=== PATIENT | male | born 1945 | race Caucasian/White ===

== ENCOUNTER 2016-04-12 13:56 | Emergency (ER) | payer OTHER ==
--- NOTE | 2016-04-12 13:58 | PDOC ---
History of Present Illness - General Chief Complaint: Pain, Acute Stated Complaint: RIGHT ARM, UPPER BACK PAIN Time Seen by Provider: 04/12/16 13:58 - History of Present Illness Initial Comments: 04/12/16 14:58 70 year bangladeshi speaking male presented to the ED with complaints of severe pain over his neck, right shoulder since 2 weeks. A/c to the patient, he was in [facility], while he was trying to pull out a fence, started developing pain right away. Pain started suddenly, progressively getting worse, squeezing type, extending from neck to right shoulder till the tip of the fingers, also complaints of tingling and numbness of all fingers. Took one dose of advil and 2tabs of tylenol but didn't feel better. Pain has restricted his daily activities. It aggravated during movement but now persists even at rest. Denies chest pain, sob, cough, palpitation, abdominal pain, nausea or vomiting. Bowel/Bladder habit normal. Past Medical Hx: DM Allergies:NKDA Surgical Hx: Right inguinal hernia repair Social Hx: Never smoked, No alcohol intake, no illicit drug use. Hospitalization: Never been hospitalized Home Meds: Home Medications Medication Instructions Recorded Ibuprofen [Motrin -] 400 mg PO TID #21 tablet 04/12/16 Metformin HCl [Glucophage -] 500 mg PO BID 04/12/16 Past History - Past Medical History Allergies/Adverse Reactions: Allergies Allergy/AdvReac Type Severity Reaction Status Date / Time No Known Allergies Allergy Verified 04/12/16 13:57 Home Medications: Ambulatory Orders Ibuprofen [Motrin -] 400 mg PO TID #21 tablet 04/12/16 Metformin HCl [Glucophage -] 500 mg PO BID 04/12/16 Diabetes: Yes - Surgical History Abdominal Surgery: Yes (HERNIA) - Psycho/Social/Smoking Cessation Hx Anxiety: No Suicidal Ideation: No Smoking History: Unknown if ever smoked Have you smoked in the past 12 months: No Hx Alcohol Use: No Substance Use Type: None Review of Systems - Review of Systems Able to Perform ROS?: Yes Comments:: 04/12/16 15:20 CONSTITUTIONAL: Absent: fever, chills, diaphoresis, generalized weakness, malaise, loss of appetite HEENT: Absent: rhinorrhea, nasal congestion, throat pain, throat swelling, difficulty swallowing, mouth swelling, ear pain, eye pain, visual Changes CARDIOVASCULAR: Absent: chest pain, syncope, palpitations, irregular heart rate, lightheadedness , peripheral edema RESPIRATORY: Absent: cough, shortness of breath, dyspnea with exertion, orthopnea, wheezing, stridor, hemoptysis GASTROINTESTINAL: Absent: abdominal pain, abdominal distension, nausea, vomiting, diarrhea, constipation, melena, hematochezia GENITOURINARY: Absent: dysuria, frequency, urgency, hesitancy, hematuria, flank pain, genital pain MUSCULOSKELETAL: Present: Pain over the neck, shoulder, fingers Absent: myalgia, arthralgia, joint swelling SKIN: Absent: rash, itching, pallor HEMATOLOGIC/IMMUNOLOGIC: Absent: easy bleeding, easy bruising, lymphadenopathy, frequent infections ENDOCRINE: Absent: unexplained weight gain, unexplained weight loss, heat intolerance, cold intolerance NEUROLOGIC: Absent: headache, focal weakness or paresthesias, dizziness, unsteady gait, seizure, mental status changes, bladder or bowel incontinence PSYCHIATRIC: Absent: anxiety, depression, suicidal or homicidal ideation, hallucinations. Is the patient limited Vietnamese proficient: No *Physical Exam - Physical Exam Comments: 04/12/16 15:28 PE: GENERAL: Awake, alert, and fully oriented, in no acute distress HEAD: No signs of trauma EYES: PERRLA, EOMI, sclera anicteric, conjunctiva clear ENT: Auricles normal inspection, hearing grossly normal, nares patent, oropharynx clear without exudates. Moist mucosa NECK: Normal ROM, supple, no lymphadenopathy, JVD, or masses LUNGS: Breath sounds equal, clear to auscultation bilaterally. No wheezes, and no crackles.. HEART: Regular rate and rhythm, normal S1 and S2, no murmurs. ABDOMEN: Soft, nontender, normoactive bowel sounds. No guarding, no rebound. No masses EXTREMITIES: No swelling, tender to palpation over the neck, right shoulder, tense +, B/L sensation intact. Range of motion restricted over the right shoulder, . No clubbing or cyanosis. No cords, erythema, or tenderness NEUROLOGICAL: Cranial nerves II through XII grossly intact. Normal speech, normal gait SKIN: Warm, Dry, normal turgor, no rashes or lesions noted. 04/12/16 16:10 Medical Decision Making - Medical Decision Making 04/12/16 15:38 Patient seen and examined at bed side. Patient look comfortable. Vitals unremarkable. Physical exam of the upper extremity showed No swelling, tender to palpation over the neck, right shoulder, tense +, B/L sensation intact. Range of motion restricted over the right shoulder. On the basis of history and physical exam, symptoms are more consistent with musculoskeletal strain. However, there is possibility patient might have Frozen shoulder given the history of Diabetes. Patient received 800mg of PO Motrin, symptoms subsided. patient looks comfortable, hemodynamically stable and can be discharged. Patient has been advised to visit his primary doctor as soon as possible for further detailed evaluation. Illness, Investigation and plan of care explained to the patient. He verbalized understanding. Case seen and discussed with Dr. Perez. *DC/Admit/Observation/Transfer Diagnosis at time of Disposition: Trapezius muscle strain - Discharge Dispostion Disposition: HOME Condition at time of disposition: Stable - Prescriptions Prescriptions: Ibuprofen [Motrin -] 400 mg PO TID #21 tablet - Referrals Referrals: Parker Wing MD [Staff Physician] - 2 Days Navjot White MD [Primary Care Provider] - - Patient Instructions Printed Discharge Instructions: DI for Muscle Strain Additional Instructions: Return to the emergency department immediately with ANY new, persistent or worsening symptoms. You MUST call and follow up with your doctor tomorrow. Please make sure your doctor reviews the results of your emergency department evaluation.
[2016-04-12 14:04] VITALS: BP 147/85; PULSE 81; TEMP 97.9; BMI 33.9
--- NOTE | 2016-04-12 14:06 | PDOC ---
History of Present Illness - General Chief Complaint: Pain, Acute Stated Complaint: RIGHT ARM, UPPER BACK PAIN Time Seen by Provider: 04/12/16 13:58 Past History - Past Medical History Allergies/Adverse Reactions: Allergies Allergy/AdvReac Type Severity Reaction Status Date / Time No Known Allergies Allergy Verified 04/12/16 13:57 Home Medications: Ambulatory Orders Metformin HCl [Glucophage -] 500 mg PO BID 04/12/16 Diabetes: Yes - Surgical History Abdominal Surgery: Yes (HERNIA) - Psycho/Social/Smoking Cessation Hx Anxiety: No Suicidal Ideation: No Smoking History: Unknown if ever smoked Have you smoked in the past 12 months: No Hx Alcohol Use: No Drug/Substance Use Hx: No Substance Use Type: None *Physical Exam - Vital Signs Last Vital Signs Temp Pulse Resp BP Pulse Ox 97.9 F 81 18 147/85 100 04/12/16 13:57 04/12/16 13:57 04/12/16 13:57 04/12/16 13:57 04/12/16 13:57 Discharge Disposition - Discharge Dispostion Condition at time of disposition: Stable
--- NOTE | 2016-04-12 14:06 | PDOC ---
Attending Attestation - Resident Resident Name: Sweetie Alexander - ED Attending Attestation I have performed the following: I have examined & evaluated the patient, The case was reviewed & discussed with the resident, I agree w/resident's findings & plan, Exceptions are as noted - HPI HPI: 04/12/16 14:37 The patient is a 70-year-old male who presents to the emergency department complaining of right sided neck and shoulder pain. He has had the pain for approximately one week. It occurred after he was performing increased physical activity. The pain is a mild dull ache, and is worsened by palpation or movement. He denies upper extremity weakness or paresthesias. He denies focal weakness or paresthesias. - Physicial Exam PE: 04/12/16 14:38 There is spasm and tenderness to palpation in the distribution of the trapezius muscle. There is 2 out of 2 carotid pulses bilaterally, without any carotid or vertebral bruits. C-spine is nontender Upper and lower extremity sensation and motor function is symmetric Radial and brachial pulses in the right and left upper extremities are strong and symmetric - Medical Decision Making 04/12/16 14:00 The patient is well-appearing and in no acute distress Will obtain PA and lateral chest x-ray 04/12/16 14:40 Chest x-ray emergency Department interpretation: There are no arthralgia seen in the right upper lobe There are no bony abnormalities seen Clinical impression: Musculoskeletal pain Trapezius muscle strain I discussed the physical exam findings, ancillary test results and final diagnoses with the patient. I answered all of the patient's questions. The patient was satisfied with the care received and felt comfortable with the discharge plan and treatment plan. The patient will call their primary care physician within 24 hours to arrange follow-up and will return to the Emergency Department with any new, persistent or worsening symptoms. A portion of this note was documented by scribe services under my direction. I have reviewed the details of the note, within reason, and agree with the documentation with the following case summary and management plan written by me. Discharge Disposition - Diagnosis Trapezius muscle strain - Discharge Dispostion Disposition: HOME Condition at time of disposition: Stable - Prescriptions Prescriptions: Ibuprofen [Motrin -] 400 mg PO TID #21 tablet - Referrals Referrals: Navjot White MD [Primary Care Provider] - Parker Wing MD [Staff Physician] - 2 Days - Patient Instructions Printed Discharge Instructions: DI for Muscle Strain Additional Instructions: Return to the emergency department immediately with ANY new, persistent or worsening symptoms. You MUST call and follow up with your doctor tomorrow. Please make sure your doctor reviews the results of your emergency department evaluation.
[2016-04-12] MEDS ORDERED: IBUPROFEN 400 MG TABLET (FP) PO ONE ×2 (14:48→15:03)
== END 2016-04-12 15:26 | disposition home or self-care (01) ==
LOC: EDBD → FER 13:56
DX: S46.811A Strain of other muscles, fascia and tendons at shoulder and upper arm level, right arm, initial encounter (principal); X50.0XXA Overexertion from strenuous movement or load, initial encounter; Y93.89 Activity, other specified; Y92.89 Other specified places as the place of occurrence of the external cause
CPT/HCPCS: 71020-TC; 99282-25

== ENCOUNTER 2016-05-22 21:53 | Emergency (ER) | payer OTHER ==
[2016-05-22 21:57] VITALS: BP 141/67; PULSE 74; TEMP 98.2; BMI 34.7
[2016-05-22] MEDS ORDERED: SODIUM CHLORIDE 1,000 ML IV STA ×2 (22:07→23:08)
--- NOTE | 2016-05-22 22:08 | PDOC ---
History of Present Illness - General History Source: Patient, Old Records Exam Limitations: No Limitations - History of Present Illness Initial Comments: 05/22/16 22:08 The patient is a 70 year old male, accompanied by , with a past medical history of diabetes and HTN who presents to the emergency room today for further evaluation of irregular blood sugar levels. The patient states that yesterday while he was at his doctors office his blood sugar was 521. He notes that today in the morning his blood sugar was 490 and in the afternoon it was 377. The patient reports associated generalized weakness. The patient states that he has been drinking a lot of fluids and has been eating normally. He denies fever and any other complaints at this time <Ramsey Mcadams - Last Filed: 05/22/16 22:09> <Peter Davey - Last Filed: 05/22/16 23:29> - General Chief Complaint: Blood Sugar Problem Stated Complaint: HIGH GLUCOSE Past History <Ramsey Mcadams - Last Filed: 05/22/16 22:09> - Past Medical History Diabetes: Yes HTN: Yes Hypercholesterolemia: Yes - Surgical History Abdominal Surgery: Yes (HERNIA) - Psycho/Social/Smoking Cessation Hx Anxiety: No Suicidal Ideation: No Smoking History: Never smoked Have you smoked in the past 12 months: No Hx Alcohol Use: No Drug/Substance Use Hx: No Substance Use Type: None <Peter Davey - Last Filed: 05/22/16 23:29> - Past Medical History Allergies/Adverse Reactions: Allergies Allergy/AdvReac Type Severity Reaction Status Date / Time No Known Allergies Allergy Verified 04/12/16 13:57 Home Medications: Ambulatory Orders Ibuprofen [Motrin -] 400 mg PO TID #21 tablet 04/12/16 Metformin HCl [Glucophage -] 500 mg PO BID 04/12/16 Review of Systems - Review of Systems Able to Perform ROS?: Yes Constitutional: Yes: Symptoms Reported, See HPI, Weakness Hematologic/Lymphatic: Yes: Symptoms Reported, See HPI, Other (Blood sugar abnormalities) <Ramsey Mcadams - Last Filed: 05/22/16 22:09> *Physical Exam - Vital Signs Last Vital Signs Temp Pulse Resp BP Pulse Ox 98.2 F 74 18 141/67 92 L 05/22/16 21:55 05/22/16 21:55 05/22/16 21:55 05/22/16 21:55 05/22/16 21:55 <Ramsey Mcadams - Last Filed: 05/22/16 22:09> - Vital Signs Last Vital Signs Temp Pulse Resp BP Pulse Ox 98.2 F 74 18 141/67 92 L 05/22/16 21:55 05/22/16 21:55 05/22/16 21:55 05/22/16 21:55 05/22/16 21:55 - Physical Exam General Appearance: Yes: Nourished, Appropriately Dressed. No: Apparent Distress HEENT: positive: Normal ENT Inspection Neck: positive: Supple. negative: Tender Respiratory/Chest: positive: Lungs Clear, Normal Breath Sounds. negative: Respiratory Distress Cardiovascular: positive: Regular Rhythm, Regular Rate Gastrointestinal/Abdominal: positive: Soft. negative: Tender Musculoskeletal: positive: Normal Inspection. negative: CVA Tenderness Extremity: positive: Normal Capillary Refill. negative: Pedal Edema Integumentary: positive: Normal Color Neurologic: positive: Fully Oriented, Alert, Normal Mood/Affect, Normal Response , Motor Strength 5/5 <Peter Davey - Last Filed: 05/22/16 23:29> ED Treatment Course - LABORATORY CBC & Chemistry Diagram: 05/22/16 22:05 05/22/16 22:05 <Peter Davey - Last Filed: 05/22/16 23:29> *DC/Admit/Observation/Transfer - Attestations Scribe Attestion: 05/22/16 22:09 Documentation prepared by Ramsey Mcadams, acting as medical assisting instructor for Peter Davey MD. <Ramsey Mcadams - Last Filed: 05/22/16 22:09> <Peter Davey - Last Filed: 05/22/16 23:29> Diagnosis at time of Disposition: Hyperglycemia - Discharge Dispostion Disposition: HOME Condition at time of disposition: Improved - Referrals Referrals: Navjot White MD [Primary Care Provider] - Call tomorrow - Patient Instructions Additional Instructions: CONTINUE MEDICATIONS PRESCRIBED CHECK YOUR SUGAR BEFORE BED RETURN TO ER IF WORSENING OR NEW SYMPTOMS
[2016-05-22 22:26] LABS: BASOPHIL 0.8 % (0-2.0); EOSINOPHIL 1.5 % (0-4.5); MCH 30.6 pg (25.7-33.7); MCHC 34.2 g/dl (32.0-35.9); MEAN CELL VOLUME 89.4 fl (80-96); MEAN PLT VOLUME 8.9 fl (7.5-11.1); PLATELET COUNT 229 K/MM3 (134-434); RDW 12.1 % (11.9-15.9); WHITE BLOOD COUNT 9.2 K/mm3 (4.0-10.0)
[2016-05-22 22:34] LABS: CALCIUM 9.5 mg/dl (8.4-10.2); CREATININE 0.9 mg/dl (0.6-1.3)
[2016-05-22] MEDS ORDERED: INSULIN REGULAR HUMAN 100 UNITS/ML *VIAL IVPUSH ONE (23:08)
[2016-05-22] MEDS ORDERED: INSULIN REGULAR HUMAN 100 UNITS/ML *VIAL ONE (23:08)
[2016-05-22] MEDS ORDERED: HEMOQUE TEST 1 EACH EACH ONE (23:28)
== END 2016-05-22 23:41 | disposition home or self-care (01) ==
LOC: FER 21:53
PROC: 3E033VG Introduction of Insulin into Peripheral Vein, Percutaneous Approach (ICD-10-PCS; principal; 2016-05-22)
PROC: 3E0337Z Introduction of Electrolytic and Water Balance Substance into Peripheral Vein, Percutaneous Approach (ICD-10-PCS; 2016-05-22)
DX: E11.65 Type 2 diabetes mellitus with hyperglycemia (principal); Z79.84 Long term (current) use of oral hypoglycemic drugs; I10 Essential (primary) hypertension; E78.00 Pure hypercholesterolemia, unspecified
CPT/HCPCS: 36415; 80048; 82009; 85025; 99283-25

== ENCOUNTER 2016-07-11 17:24 | Emergency (ER) | payer OTHER ==
[2016-07-11 17:49] VITALS: BP 120/76; PULSE 67; TEMP 98.5; BMI 28.2
--- NOTE | 2016-07-11 17:59 | PDOC ---
History of Present Illness - General History Source: Patient Exam Limitations: No Limitations - History of Present Illness Initial Comments: 07/11/16 18:27 The patient is a 70 year old male with a significant past medical history of diabetes and hypertension who presents to the ED with complaints of right thigh pain s/p fall yesterday. Patient reports he fell yesterday onto his right side. Denies loss of consciousness. Patient reports progressively worsening non radiating upper right thigh pain. He describes the pain as sharp. He states it is difficult for him to ambulate secondary to thigh pain. Patient also reports a laceration to his right shoulder due to the fall. Denies head pain or neck pain. Denies hip pain. Denies fever or chills. Denies chest pain or shortness of breath. Denies abdominal pain, nausea, vomiting, or diarrhea. Denies any other symptoms. PMH: Diabetes, HTN <Shey Akers - Last Filed: 07/11/16 18:28> - History of Present Illness Initial Comments: 07/23/16 07:38 The patient's physical exam is unremarkable. There is mild tenderness over the anterior and lateral mid-thigh but no swelling or mass suggestive of a hematoma. There is full knee extension. There is no limited motion or pain with rotation of the hips. Pulses are full. The distal sensory or motor deficits. Examination of the shoulder reveals no visible or palpable sign of trauma, full range of motion, no sensory or motor deficits to the upper extremity Avila wrap and crutches were administered. Rest and Motrin as needed. Follow-up with orthopedist. Patient adequately ambulatory and in no significant pain or other distress upon discharge with his to follow-up as directed <Arnel Hawthorne - Last Filed: 07/23/16 07:40> - General Chief Complaint: Injury Stated Complaint: RIGHT THIGH & SHOULDER PAIN Time Seen by Provider: 07/11/16 17:28 Past History <Shey Akers - Last Filed: 07/11/16 18:28> - Past Medical History Diabetes: Yes HTN: Yes Hypercholesterolemia: Yes - Surgical History Abdominal Surgery: Yes (HERNIA) - Psycho/Social/Smoking Cessation Hx Anxiety: No Suicidal Ideation: No Smoking History: Never smoked Have you smoked in the past 12 months: No Hx Alcohol Use: No Drug/Substance Use Hx: No Substance Use Type: None <Arnel Hawthorne - Last Filed: 07/23/16 07:40> - Past Medical History Allergies/Adverse Reactions: Allergies Allergy/AdvReac Type Severity Reaction Status Date / Time No Known Allergies Allergy Verified 07/11/16 17:28 Home Medications: Ambulatory Orders Metformin HCl [Glucophage -] 1,000 mg PO BID 04/12/16 Amlodipine Besylate [Norvasc -] 5 mg PO DAILY 05/22/16 Glipizide [Glucotrol Xl] 2.5 mg PO BID 05/22/16 Lisinopril/Hydrochlorothiazide [Lisinopril-Hctz 20-12.5 mg Tab] 1 each PO DAILY 05/22/16 Cyclobenzaprine HCl [Flexeril 10 mg] 10 mg PO TID #15 tablet 07/11/16 Review of Systems - Review of Systems Able to Perform ROS?: Yes Comments:: 07/11/16 18:27 CONSTITUTIONAL: No reported: Fever, Chills, Diaphoresis, Generalized Weakness, Malaise, Loss of Appetite HEENT: No reported: Rhinorrhea, Nasal Congestion, Throat Pain, Throat Swelling, Difficulty Swallowing, Mouth Swelling, Ear Pain, Eye Pain, Visual Changes CARDIOVASCULAR: No reported: Chest Pain, Syncope, Palpitations, Irregular Heart Rate, Lightheadedness, Peripheral Edema RESPIRATORY: No reported: Cough, Shortness of Breath, SOB with Exertion, Orthopnea, Wheezing , Stridor, Hemoptysis GASTROINTESTINAL: No reported: Abdominal pain, Abdominal Distension, Nausea, Vomiting, Diarrhea, Constipation, Melena, Hematochezia GENITOURINARY: No reported: Dysuria, Frequency, Urgency, Hesitancy, Flank Pain, Genital Pain MUSCULOSKELETAL: + right thigh pain No reported:, Joint Swelling, Back pain, Neck Pain SKIN: + right shoulder laceration No reported: Rash, Itching, Pallor HEMEATOLOGIC/IMMUNOLOGIC: No reported: Easy Bleeding, Easy Bruising, Lymphadenopathy, Frequent infections ENDOCRINE: No reported: Unexplained Weight Gain, Unexplained Weight Loss, Heat Intolerance , Cold Intolerance NEUROLOGIC: No reported: Headache, Focal Weakness, Paresthesias, Vertigo, Lightheadedness, Unsteady Gait, Seizure, Mental Status Changes, Incontinence PSYCHIATRIC: No reported: Anxiety, Depression All Other Systems: Reviewed and Negative <Akers,Andrys - Last Filed: 07/11/16 18:28> *Physical Exam - Vital Signs Last Vital Signs Temp Pulse Resp BP Pulse Ox 98.5 F 67 16 120/76 95 07/11/16 17:26 07/11/16 17:26 07/11/16 17:26 07/11/16 17:26 07/11/16 17:26 - Physical Exam Comments: 07/11/16 18:28 GENERAL: Well developed, well nourished. Awake and alert. No acute distress. HEENT: Normocephalic, atraumatic. PERRLA, EOMI. No conjunctival pallor. Sclera are non- icteric. Moist mucous membranes. Oropharynx is clear. NECK: Supple. Full ROM. No JVD. Carotid pulses 2+ and symmetric, without bruits. No thyromegaly. No lymphadenopathy. CARDIOVASCULAR: Regular rate and rhythm. No murmurs, rubs, or gallops. Distal pulses are 2+ and symmetric. PULMONARY: No evidence of respiratory distress. Lungs clear to auscultation bilaterally. No wheezing, rales or rhonchi. ABDOMINAL: Soft. Non-tender. Non-distended. No rebound or guarding. No organomegaly. Normoactive bowel sounds. MUSCULOSKELETAL Normal range of motion at all joints. No bony deformities or tenderness. No CVA tenderness. EXTREMITIES: + tenderness of the mid right anterolateral thigh, with mild swelling. Appears to be deep in the belly of the muscle. no tenderness or limited range of motion in the knee or hip, no skin injury including abrasion or laceration that is evident. Pain is severe enough limit weight bearing and ambulation, although patient is able to ambulate adequately.. SKIN: Warm and dry. Normal capillary refill. No rashes. No jaundice. NEUROLOGICAL: Alert, awake, appropriate. Cranial nerves 2-12 intact. No deficits to light touch and temperature in face, upper extremities and lower extremities. No motor deficits in the in face, upper extremities and lower extremities. Normoreflexic in the upper and lower extremities. Normal speech. Toes are down- going bilaterally. Gait is normal without ataxia. PSYCHIATRIC: Cooperative. Good eye contact. Appropriate mood and affect. <Shey Akers - Last Filed: 07/11/16 18:28> - Vital Signs Last Vital Signs Temp Pulse Resp BP Pulse Ox 98.5 F 67 16 120/76 95 07/11/16 17:26 07/11/16 17:26 07/11/16 17:26 07/11/16 17:26 07/11/16 17:26 <Arnel Hawthorne - Last Filed: 07/23/16 07:40> ED Treatment Course - RADIOLOGY Radiograph Interpretation: 07/11/16 18:29 RAD/FEMUR-RIGHT Impression: No fracture or acute pathology. Reported by: Johnnie Justin <Shey Akers - Last Filed: 07/11/16 18:28> *DC/Admit/Observation/Transfer - Attestations Scribe Attestion: 07/11/16 18:28 Documentation prepared by Shey Akers, acting as medical office assistant instructor for Arnel Whitlock MD <Shey Akers - Last Filed: 07/11/16 18:28> - Discharge Dispostion Admit: No <Arnel Hawthorne - Last Filed: 07/23/16 07:40> Diagnosis at time of Disposition: Strain of quadriceps muscle Qualifiers: Encounter type: initial encounter Laterality: right Qualified Code(s): S76.111A - Strain of right quadriceps muscle, fascia and tendon, initial encounter - Discharge Dispostion Disposition: HOME Condition at time of disposition: Good - Prescriptions Prescriptions: Cyclobenzaprine HCl [Flexeril 10 mg] 10 mg PO TID #15 tablet - Referrals Referrals: Navjot White MD [Primary Care Provider] - 3 days - Patient Instructions Printed Discharge Instructions: Muscle Strain, How to Apply an Avila Wrap, How to Use Crutches Additional Instructions: Rest, ice, elevate, Avila wrap, and crutches. Recheck customer care specialist in 3 days for further evaluation and treatment. Muscle relaxants as directed.
[2016-07-11] MEDS ORDERED: CYCLOBENZAPRINE HCL 10 MG TABLET (FP) PO ONE (18:22)
[2016-07-11] MEDS ORDERED: CYCLOBENZAPRINE HCL 10 MG TABLET (FP) ONE (18:42)
== END 2016-07-11 18:51 | disposition home or self-care (01) ==
LOC: FER 17:24
DX: S76.111A Strain of right quadriceps muscle, fascia and tendon, initial encounter (principal); W18.30XA Fall on same level, unspecified, initial encounter; Y93.9 Activity, unspecified; Y92.9 Unspecified place or not applicable; E11.9 Type 2 diabetes mellitus without complications; I10 Essential (primary) hypertension; Z79.84 Long term (current) use of oral hypoglycemic drugs
CPT/HCPCS: 73552-TC-RT; 99281-25

== ENCOUNTER 2016-11-25 16:05 | Emergency (ER) | payer OTHER ==
[2016-11-25 16:15] VITALS: BP 129/70; PULSE 61; TEMP 98.3; BMI 33.4
--- NOTE | 2016-11-25 16:59 | PDOC ---
History of Present Illness - General History Source: Patient Exam Limitations: No Limitations - History of Present Illness Initial Comments: 11/25/16 17:45 The patient is a 71 year old with history of diabetes who presents to the ED complaining of several weeks of progressively worsening right foot pain. The patient states his pain is at the base of the heel and worse with walking long distances. He admits to wearing flat sandals regularly. No injury. No swelling. No numbness or tingling. <Brooklynn Ocasio - Last Filed: 11/25/16 17:44> <Arnel Hawthorne - Last Filed: 11/25/16 18:30> - General Chief Complaint: Pain Stated Complaint: RT FOOT PAIN Time Seen by Provider: 11/25/16 16:11 Past History <Brooklynn Ocasio - Last Filed: 11/25/16 17:44> - Past Medical History Diabetes: Yes HTN: Yes Hypercholesterolemia: Yes - Surgical History Abdominal Surgery: Yes (HERNIA) - Suicide/Smoking/Psychosocial Hx Smoking History: Never smoked Have you smoked in the past 12 months: No Information on smoking cessation initiated: No Hx Alcohol Use: No Drug/Substance Use Hx: No Substance Use Type: None <Arnel Hawthorne - Last Filed: 11/25/16 18:30> - Past Medical History Allergies/Adverse Reactions: Allergies Allergy/AdvReac Type Severity Reaction Status Date / Time No Known Allergies Allergy Verified 11/25/16 16:08 Home Medications: Ambulatory Orders Metformin HCl [Glucophage -] 1,000 mg PO BID 04/12/16 Amlodipine Besylate [Norvasc -] 5 mg PO DAILY 05/22/16 Glipizide [Glucotrol Xl] 2.5 mg PO BID 05/22/16 Lisinopril/Hydrochlorothiazide [Lisinopril-Hctz 20-12.5 mg Tab] 1 each PO DAILY 05/22/16 Capsaicin 0.025% [Capsaicin [Nf] -] 1 applic TP BID #1 tube 11/25/16 Review of Systems - Review of Systems Able to Perform ROS?: Yes Comments:: 11/25/16 17:47 GENERAL/CONSTITUTIONAL: No fever or chills. No weakness. HEAD, EYES, EARS, NOSE AND THROAT: No change in vision. No ear pain or discharge. No sore throat. CARDIOVASCULAR: No chest pain or shortness of breath. RESPIRATORY: No cough, wheezing, or hemoptysis. GASTROINTESTINAL: No nausea, vomiting, diarrhea or constipation. GENITOURINARY: No dysuria, frequency, or change in urination. MUSCULOSKELETAL: +R foot pain. No neck or back pain. SKIN: No rash NEUROLOGIC: No headache, vertigo, loss of consciousness, or change in strength/ sensation. ENDOCRINE: No increased thirst. No abnormal weight change. HEMATOLOGIC/LYMPHATIC: No anemia, easy bleeding, or history of blood clots. ALLERGIC/IMMUNOLOGIC: No hives or skin allergy. <Brooklynn Ocasio - Last Filed: 11/25/16 17:44> *Physical Exam - Vital Signs Last Vital Signs Temp Pulse Resp BP Pulse Ox 98.3 F 61 18 129/70 100 11/25/16 16:05 11/25/16 16:05 11/25/16 16:05 11/25/16 16:05 11/25/16 16:05 - Physical Exam Comments: 11/25/16 17:45 GENERAL: Awake, alert, and fully oriented, in no acute distress HEAD: No signs of trauma EYES: PERRLA, EOMI, sclera anicteric, conjunctiva clear ENT: Auricles normal inspection, hearing grossly normal, nares patent, oropharynx clear without exudates. Moist mucosa NECK: Normal ROM, supple, no lymphadenopathy, JVD, or masses LUNGS: Breath sounds equal, clear to auscultation bilaterally. No wheezes, and no crackles HEART: Regular rate and rhythm, normal S1 and S2, no murmurs, rubs or gallops ABDOMEN: Soft, nontender, normoactive bowel sounds. No guarding, no rebound. No masses EXTREMITIES: RLE: Point tenderness over the plantar fascia. High arch. Tenderness over the achilles. No erythema or induration. Pulses are adequate without sensory deficits. All other extremities: Normal range of motion, no edema. No clubbing or cyanosis. No cords, erythema, or tenderness NEUROLOGICAL: Cranial nerves II through XII grossly intact. Normal speech, normal gait SKIN: Warm, Dry, normal turgor, no rashes or lesions noted <Brooklynn Ocasio - Last Filed: 11/25/16 17:44> - Vital Signs Last Vital Signs Temp Pulse Resp BP Pulse Ox 98.3 F 61 18 129/70 100 11/25/16 16:05 11/25/16 16:05 11/25/16 16:05 11/25/16 16:05 11/25/16 16:05 <Arnel Hawthorne - Last Filed: 11/25/16 18:30> Medical Decision Making - Medical Decision Making 11/25/16 18:29 Patient with point tenderness over the plantar fascia, no external signs of inflammation or infection. Proper footwear discussed and follow-up with aircraft engine specialist. <Arnel Hawthorne - Last Filed: 11/25/16 18:30> *DC/Admit/Observation/Transfer - Attestations Scribe Attestion: 11/25/16 17:48 Documentation prepared by Brooklynn Ocasio, acting as medical staff coordinator for Arnel Hawthorne MD. <Brooklynn Ocasio - Last Filed: 11/25/16 17:44> - Discharge Dispostion Admit: No <Arnel Hawthorne - Last Filed: 11/25/16 18:30> Diagnosis at time of Disposition: Plantar fasciitis - Discharge Dispostion Disposition: HOME Condition at time of disposition: Stable - Prescriptions Prescriptions: Capsaicin 0.025% [Capsaicin [Nf] -] 1 applic TP BID #1 tube - Referrals Referrals: Omero Rizzo MD [Staff Physician] - 1 week - Patient Instructions Printed Discharge Instructions: DI for Plantar Fasciitis Additional Instructions: Wear proper footwear, a closed shoe, with an orthotic insert. Make sure there is adequate arch support and heel cushioning, with elevation of the heel at least 1/8-1/4 in Print Language: [place]
== END 2016-11-25 17:30 | disposition home or self-care (01) ==
LOC: FER 16:05
DX: M72.2 Plantar fascial fibromatosis (principal); E11.9 Type 2 diabetes mellitus without complications; I10 Essential (primary) hypertension; E78.00 Pure hypercholesterolemia, unspecified
CPT/HCPCS: 99282-25

== ENCOUNTER 2017-10-09 23:28 | Inpatient (IN) | payer OTHER ==
--- NOTE | 2017-10-10 00:32 | PDOC ---
History of Present Illness - General Chief Complaint: Pain, Acute Stated Complaint: ABD PAIN Time Seen by Provider: 10/09/17 23:34 History Source: Patient Exam Limitations: No Limitations - History of Present Illness Initial Comments: 10/10/17 00:27 This is a 71-year-old male who comes in complaining of left lower quadrant abdominal pain 1 day. Patient has a history significant for hypertension, hyperlipidemia and type 2 diabetes. Patient vomited 2 today prior to coming in. Patient moved his bowels today. Patient denies any fevers or chills. Patient denies any history that is similar to this in the past. Patient denies any history of having had a colonoscopy OB told he has diverticulosis PAST MEDICAL HISTORY: As per history of present illness PAST SURGICAL HISTORY: no significant history FAMILY HISTORY: no pertinant history SOCIAL HISTORY: Pt lives with family and is employed. MEDICATIONS: reviewed ALLERGIES: As per nursing notes Review of Systems General: No fevers or chills, no weakness, no weight loss HEENT: No change in vision. No sore throat,. No ear pain CardioVascular: No chest pain or shortness of breath Respiratory:No cough, or wheezing. Gastrointestinal: + nausea, +vomitting, nodiarrhea or constipation, No rectal bleeding, + abdominal pain Genitourinary: No dysuria, hematuria, or frequency Musculoskeletal: No joint or muscle pain or swelling Neurologic: No headache, vertigo, dizziness or loss of consciousness Psychiatric: nor depression Skin: No rashes or easy bruising Endocrine: no increased thirst or abnormal weight change Allergic: no skin or latex allergy All other systems reviewed and normal Exam: General: Well-nourished well-developed individual, no acute distress HEENT: Throat: Normal, tonsils normal, no erythema or exudate Neck: Supple, no meningeal signs, no lymphadenopathy Eyes::Pupils equal reactive and round, extraocular motion intact Chest: Nontender to palpation Cardiac: S1-S2 normal, regular rate and rhythm, no murmurs rubs or gallops Respiratory: Lungs clear to auscultation bilateral Abdomen: Soft, nondistended, normal bowel sounds, moderately tender to palpation left lower quadrant, no guarding or rebound Extremities: Warm, dry, no cyanosis, clubbing, or edema Skin: No rashes Neuro: Alert and oriented x3, CN II - XII intact, nonfocal exam with normal strength, normal sensation, normal reflexes, normal gait, Psych: Normal mood and affect Medical decision making: This is a 71-year-old male with left lower quadrant abdominal pain. Patient symptoms most likely are secondary to diverticulitis. We 'll obtain a workup on doing CBC, comp, lipase, CAT scan abdomen and pelvis without by mouth contrast will give IV contrast if patient's renal function is normal otherwise patient is on metformin and will hold IV contrast. We'll reassess and review results of workup 03:00 pt comfortable post morphne, CT scan shows gallbladder distention with gallstones will obtain US 10/10/17 05:50 US positive for acute cholecystitis. Dr. Webb called and will consult on patient patient will be admitted to the medicine service as we have no OR this weekend a Elise patient will be transferred over to [facility]. Past History - Past Medical History Allergies/Adverse Reactions: Allergies Allergy/AdvReac Type Severity Reaction Status Date / Time No Known Allergies Allergy Verified 11/25/16 16:08 Home Medications: Ambulatory Orders metFORMIN HCL [Glucophage -] 1,000 mg PO BID 04/12/16 Amlodipine Besylate [Norvasc -] 5 mg PO DAILY 05/22/16 Glipizide [Glucotrol Xl] 2.5 mg PO BID 05/22/16 Lisinopril/Hydrochlorothiazide [Lisinopril-Hctz 20-12.5 mg Tab] 1 each PO DAILY 05/22/16 Capsaicin 0.025% [Capsaicin [Nf] -] 1 applic TP BID #1 tube 11/25/16 COPD: No Diabetes: Yes HTN: Yes Hypercholesterolemia: Yes - Surgical History Abdominal Surgery: Yes (HERNIA) - Suicide/Smoking/Psychosocial Hx Smoking History: Never smoked Have you smoked in the past 12 months: No Hx Alcohol Use: No Drug/Substance Use Hx: No Substance Use Type: None *Physical Exam - Vital Signs Last Vital Signs Temp Pulse Resp BP Pulse Ox 97.4 F L 58 L 18 166/71 100 10/09/17 23:32 10/09/17 23:32 10/09/17 23:32 10/09/17 23:32 10/09/17 23:32 ED Treatment Course - LABORATORY CBC & Chemistry Diagram: 10/10/17 00:30 10/10/17 00:30 *DC/Admit/Observation/Transfer Diagnosis at time of Disposition: Acute cholecystitis - Discharge Dispostion Condition at time of disposition: Stable Decision to Admit order: Yes - Referrals - Patient Instructions - Post Discharge Activity
[2017-10-10] MEDS ORDERED: morphine CARPU-JECT 4 MG/1 ML DISP.SYRIN IVPUSH ONE (00:41)
[2017-10-10] MEDS ORDERED: SODIUM CHLORIDE 1,000 ML IV ONE (00:41)
[2017-10-10] MEDS ORDERED: morphine SULFATE 4 MG/ML VIAL ONE (00:43)
[2017-10-10 01:21] LABS: BASO % 0.2 % (0-2.0); HEMATOCRIT 45.3 % (35.4-49); HEMOGLOBIN 15.5 GM/dL (11.7-16.9); LYMPH % 8.9 % (8-40); MCH 30.9 pg (25.7-33.7); MCHC 34.3 g/dl (32.0-35.9); MEAN CELL VOLUME 90.1 fl (80-96); MEAN PLT VOLUME 9.6 fl (7.5-11.1); MONO % 3.9 % (3.8-10.2); PLATELET COUNT 246 K/MM3 (134-434); RBC 5.02 M/mm3 (4.00-5.60); RDW 12.7 % (11.9-15.9); URINE APPEARANCE CLEAR; URINE BILIRUBIN NEGATIVE (<2.0 mg/dL); URINE COLOR STRAW; URINE GLUCOSE (UA) 3+ (NEGATIVE); URINE KETONE 1+ (NEGATIVE); URINE LEUK ESTERASE NEGATIVE (NEGATIVE); URINE NITRITE NEGATIVE (NEGATIVE); URINE PROTEIN NEGATIVE (NEGATIVE); URINE UROBILINOGEN NEGATIVE mg/dL (0.2-1.0); WHITE BLOOD COUNT 15.7 K/mm3 (4.0-10.0)
[2017-10-10 01:42] LABS: ALBUMIN 3.9 g/dl (3.4-5.0); ANION GAP 11 (8-16); BILIRUBIN,TOTAL 0.5 mg/dL (0.2-1.0); BLOOD UREA NITROGEN 9 mg/dL (7-18); CALCIUM 9.2 mg/dL (8.5-10.1); CHLORIDE 96 mmol/L (98-107); CO2 30 mmol/L (21-32); CREATININE 0.8 mg/dL (0.7-1.3); SGOT/AST 18 U/L (15-37); SGPT/ALT 22 U/L (12-78); SODIUM 137 mmol/L (136-145); TOT PROT 7.5 g/dl (6.4-8.2)
[2017-10-10 01:44] LABS: ALK PHOS 132 U/L (45-117)
[2017-10-10 01:46] LABS: GLUCOSE,RANDOM 323 mg/dL (74-106)
[2017-10-10] MEDS ORDERED: ONDANSETRON 4 MG/2 ML VIAL ONE (04:49)
[2017-10-10] MEDS ORDERED: HEMOQUE TEST 1 EACH EACH ONE (04:49)
[2017-10-10] MEDS ORDERED: ONDANSETRON 4 MG/2 ML VIAL IVPUSH ONE (04:56)
[2017-10-10] MEDS ORDERED: PIPERACILLIN/TAZOB 4.5 GM 4.5 GM in DEXTROSE 5%-WATER 100 ML IVPB ONE ×2 (05:53→14:00)
[2017-10-10] MEDS ORDERED: INSULIN REGULAR HUMAN 100 UNITS/ML *VIAL IVPUSH ONE (05:55)
[2017-10-10] MEDS ORDERED: PIPERACILLIN/TAZOBACTAM 4.5 GM VIAL IVPB ONE ×2 (05:57→13:55)
[2017-10-10] MEDS ORDERED: INSULIN REGULAR HUMAN 100 UNITS/ML *VIAL ONE (06:01)
[2017-10-10] MEDS ORDERED: ONDANSETRON 4 MG/2 ML VIAL IVPUSH PRN (07:18)
--- NOTE | 2017-10-10 07:28 | HP ---
CHIEF COMPLAINT: Abdominal pain HISTORY OF PRESENT ILLNESS: 71 year-old male with a PMH significant for HTN, and NIDDM. 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 Patient reported two episodes of vomiting prior to arrival. He also reported subjective fever/chills and weakness, but denied diarrhea. ER course was notable for: (1) WBC 15.7k (2) Glucose 323 Recent Travel: No PAST MEDICAL HISTORY: Hypertension NIDDM PAST SURGICAL HISTORY: Right inguinal hernia repair Social History: lives with family and is employed Smoking: never Alcohol: no Drugs:no Family History: non-contributory Allergies No Known Allergies Allergy (Verified 11/25/16 16:08) HOME MEDICATIONS: Home Medications Medication Instructions Recorded metFORMIN HCL [Glucophage -] 1,000 mg PO BID 04/12/16 Amlodipine Besylate [Norvasc -] 5 mg PO DAILY 05/22/16 Glipizide [Glucotrol Xl] 2.5 mg PO BID 05/22/16 Lisinopril/Hydrochlorothiazide 1 each PO DAILY 05/22/16 [Lisinopril-Hctz 20-12.5 mg Tab] Capsaicin 0.025% [Capsaicin [Nf] -] 1 applic TP BID #1 tube 11/25/16 REVIEW OF SYSTEMS CONSTITUTIONAL: +fever, chills, weakness Absent: diaphoresis, malaise, loss of appetite, weight change HEENT: Absent: rhinorrhea, nasal congestion, throat pain, throat swelling, difficulty swallowing, mouth swelling, ear pain, eye pain, visual changes CARDIOVASCULAR: Absent: chest pain, syncope, palpitations, irregular heart rate, lightheadedness , peripheral edema RESPIRATORY: Absent: cough, shortness of breath, dyspnea with exertion, orthopnea, wheezing, stridor, hemoptysis GASTROINTESTINAL: +abdominal pain, nausea, vomiting Absent: abdominal distension, diarrhea, constipation, melena, hematochezia GENITOURINARY: Absent: dysuria, frequency, urgency, hesitancy, hematuria, flank pain, genital pain MUSCULOSKELETAL: Absent: myalgia, arthralgia, joint swelling, back pain, neck pain SKIN: Absent: rash, itching, pallor HEMATOLOGIC/IMMUNOLOGIC: Absent: easy bleeding, easy bruising, lymphadenopathy, frequent infections ENDOCRINE: Absent: unexplained weight gain, unexplained weight loss, heat intolerance, cold intolerance NEUROLOGIC: Absent: headache, focal weakness or paresthesias, dizziness, unsteady gait, seizure, mental status changes, bladder or bowel incontinence PSYCHIATRIC: Absent: anxiety, depression, suicidal or homicidal ideation, hallucinations. PHYSICAL EXAMINATION Vital Signs - 24 hr 10/09/17 10/10/17 23:32 06:00 Temperature 97.4 F L 99.7 F H Pulse Rate 58 L Pulse Rate [ 80 Radial] Respiratory 18 16 Rate Blood Pressure 166/71 Blood Pressure 152/74 [Arm] O2 Sat by Pulse 100 95 Oximetry (%) GENERAL: Awake, alert, and fully oriented, in no acute distress. Ill appearing HEAD: Normal with no signs of trauma. EYES: Pupils equal, round and reactive to light, extraocular movements intact, sclera anicteric, conjunctiva clear. No lid lag. LUNGS: Breath sounds equal, clear to auscultation bilaterally. No wheezes, and no crackles. No accessory muscle use. HEART: Regular rate and rhythm, normal S1 and S2 ABDOMEN: Soft, diffusely tender all quadrants, no guarding, no rebound MUSCULOSKELETAL: Normal range of motion at all joints. No bony deformities or tenderness. UPPER EXTREMITIES: 2+ pulses, warm, well-perfused. No cyanosis. No clubbing. No peripheral edema. LOWER EXTREMITIES: 2+ pulses, warm, well-perfused. No calf tenderness. No peripheral edema. NEUROLOGICAL: Cranial nerves II-XII intact. Normal speech. Laboratory Results - last 24 hr 10/10/17 10/10/17 10/10/17 00:30 00:30 00:30 WBC 15.7 H RBC 5.02 Hgb 15.5 Hct 45.3 MCV 90.1 MCH 30.9 MCHC 34.3 RDW 12.7 Plt Count 246 MPV 9.6 Absolute Neuts (auto) 13.6 H Neutrophils % 87.0 H Lymphocytes % 8.9 Monocytes % 3.9 Eosinophils % 0.0 Basophils % 0.2 Nucleated RBC % 0 Sodium 137 Potassium 4.0 Chloride 96 L Carbon Dioxide 30 Anion Gap 11 BUN 9 Creatinine 0.8 Creat Clearance w eGFR > 60 POC Glucometer Random Glucose 323 H* Calcium 9.2 Total Bilirubin 0.5 AST 18 ALT 22 Alkaline Phosphatase 132 H Creatine Kinase Troponin I Total Protein 7.5 Albumin 3.9 Urine Color Straw Urine Appearance Clear Urine pH 8.0 Ur Specific [place] 1.024 Urine Protein Negative Urine Glucose (UA) 3+ H Urine Ketones 1+ H Urine Blood Negative Urine Nitrite Negative Urine Bilirubin Negative Urine Urobilinogen Negative Ur Leukocyte Esterase Negative 10/10/17 10/10/17 10/10/17 00:30 00:30 05:53 WBC RBC Hgb Hct MCV MCH MCHC RDW Plt Count MPV Absolute Neuts (auto) Neutrophils % Lymphocytes % Monocytes % Eosinophils % Basophils % Nucleated RBC % Sodium Potassium Chloride Carbon Dioxide Anion Gap BUN Creatinine Creat Clearance w eGFR POC Glucometer [phone] Random Glucose Calcium Total Bilirubin AST ALT Alkaline Phosphatase Creatine Kinase 113 Troponin I Cancelled < 0.02 Total Protein Albumin Urine Color Urine Appearance Urine pH Ur Specific [place] Urine Protein Urine Glucose (UA) Urine Ketones Urine Blood Urine Nitrite Urine Bilirubin Urine Urobilinogen Ur Leukocyte Esterase 10/10/17 07:04 WBC RBC Hgb Hct MCV MCH MCHC RDW Plt Count MPV Absolute Neuts (auto) Neutrophils % Lymphocytes % Monocytes % Eosinophils % Basophils % Nucleated RBC % Sodium Potassium Chloride Carbon Dioxide Anion Gap BUN Creatinine Creat Clearance w eGFR POC Glucometer [phone] Random Glucose Calcium Total Bilirubin AST ALT Alkaline Phosphatase Creatine Kinase Troponin I Total Protein Albumin Urine Color Urine Appearance Urine pH Ur Specific [place] Urine Protein Urine Glucose (UA) Urine Ketones Urine Blood Urine Nitrite Urine Bilirubin Urine Urobilinogen Ur Leukocyte Esterase ASSESSMENT/PLAN: 71 year-old male with a PMH significant for HTN and NIDDM. Admitted for acute cholecystitis and possible choledocholelithiasis. Sepsis secondary to acute cholecystitis Cholelithiasis r/o Choledocholelithiasis --WBC 15.7k, fever, identified source of infection --10/10 US: cholelithiasis, overdistension, probably mild diffuse wall thickening, small amount of pericholecystic fluids, +sono Lyons's sign, suggestive of acute cholecystitis; equivocal CBD dilitation --10/10 CTAP: cholelithiasis, equivocal minimal gallbladder wall thickening, no definite biliary tract dilitation --MRCP ordered --continue Zosyn --received 1L NS in ED; will defer further bolus fluids due to hypertension --GI, ID, surgery following Hypertension --BP is elevated --continue amlodipine, lisinopril, HCTZ --monitor closely for signs of hypotension due to sepsis NIDDM --Novolog sliding scale coverage FEN Fluids: NS @ 100mL/hr Electrolytes: replete as indicated Nutrition: NPO DVT prophylaxis: hold chemical prophylaxis for possible procedures; SCDs Dispo: continues to require inpatient care. Full code. Visit type - Emergency Visit Emergency Visit: Yes ED Registration Date: 10/10/17 Care time: The patient presented to the Emergency Department on the above date and was hospitalized for further evaluation of their emergent condition. - New Patient This patient is new to me today: Yes Date on this admission: 10/10/17 - Critical Care Critical Care patient: No Hospitalist Screening - Colonoscopy Questionnaire Colonoscopy Questionnaire: Colonoscopy Questionnaire - Patient: 50 - 75 years old and never had a screening colonoscopy: Unknown History of colon or rectal polyps, or CA: No History of IBD, Crohn's disease or UC: No History of abdominal radiation therapy as a child: No - Relative: 1 with colon or rectal CA, or polyps at age 60 or younger: Unknown Colon or rectal CA diagnosed at age 45 or younger: Unknown Multiple relatives with colon or rectal CA: Unknown - Outcome: Screening Result: Negative Screen
[2017-10-10] MEDS: SODIUM CHLORIDE 1,000 ML IV SCH ×3 (07:45→15:30)
--- NOTE | 2017-10-10 08:04 | CONSULT ---
Consult Consult Specialty:: General Surgery Reason for Consultation:: Cholecystitis - History of Present Illness Chief Complaint: Abdominal Pain History of Present Illness: 71yo male PMH DM presents with left lower quadrant abdominal pain 1 day. Patient has a history significant for hypertension, hyperlipidemia and type 2 diabetes. Patient vomited 2 today prior to coming in. Patient moved his bowels today. Patient denies chills but has had qualitative fever. We were asked to assess. - History Source History Provided By: Patient, Medical Record Limitations to Obtaining History: No Limitations - Alcohol/Substance Use Hx Alcohol Use: No - Smoking History Smoking history: Never smoked Have you smoked in the past 12 months: No Home Medications - Allergies Allergies/Adverse Reactions: Allergies Allergy/AdvReac Type Severity Reaction Status Date / Time No Known Allergies Allergy Verified 11/25/16 16:08 - Home Medications Home Medications: Ambulatory Orders metFORMIN HCL [Glucophage -] 1,000 mg PO BID 04/12/16 Amlodipine Besylate [Norvasc -] 5 mg PO DAILY 05/22/16 Glipizide [Glucotrol Xl] 2.5 mg PO BID 05/22/16 Lisinopril/Hydrochlorothiazide [Lisinopril-Hctz 20-12.5 mg Tab] 1 each PO DAILY 05/22/16 Capsaicin 0.025% [Capsaicin [Nf] -] 1 applic TP BID #1 tube 11/25/16 Review of Systems - Review of Systems Constitutional: denies: Chills, Fever Eyes: denies: Blurred Vision, Recent Change in Vision HENT: denies: Difficult Swallowing, Throat Pain Cardiovascular: denies: Chest Pain, Palpitations Respiratory: denies: Cough, SOB Gastrointestinal: reports: Abdominal Pain, Nausea, Vomiting Genitourinary: denies: Discharge, Dysuria, Flank Pain, Frequency Breasts: reports: No Symptoms Reported. denies: Pain Musculoskeletal: denies: Extremity Pain, Joint Swelling, Muscle Pain, Muscle Weakness Integumentary: denies: Eczema, Erythema, Rash Neurological: denies: Seizure, Syncope Endocrine: denies: Unexplained Weight Gain, Unexplained Weight Loss Hematology/Lymphatic: denies: Easily Bruised, Excessive Bleeding Psychiatric: denies: Anxiety, Depression Physical Exam Vital Signs: Vital Signs Temperature 99.7 F H 10/10/17 06:00 Pulse Rate 80 10/10/17 06:00 Respiratory Rate 16 10/10/17 06:00 Blood Pressure 152/74 10/10/17 06:00 O2 Sat by Pulse Oximetry (%) 95 10/10/17 06:00 Vital Signs Period Temp Pulse Resp BP Sys/Cooley Pulse Ox Last 24 Hr 97.4 F-99.7 F 58-80 16-18 152-166/71-74 95-100 Constitutional: Yes: Well Nourished, No Distress, Calm Eyes: Yes: Conjunctiva Clear, EOM Intact HENT: Yes: Atraumatic, Normocephalic Neck: Yes: Supple, Trachea Midline Cardiovascular: Yes: Regular Rate and Rhythm, S1, S2 Respiratory: Yes: Regular, CTA Bilaterally Gastrointestinal: Yes: Normal Bowel Sounds, Soft, Tenderness (RUQ, +murphys), Tenderness, Rebound Renal/: No: CVA Tenderness - Left, CVA Tenderness - Right Extremities: No: Cool, Cyanosis Edema: No Peripheral Pulses WNL: Yes Neurological: Yes: Alert, Oriented Psychiatric: Yes: Alert, Oriented Labs: CBC, BMP 10/10/17 00:30 10/10/17 00:30 Imaging - Results Cat Scan: Report Reviewed, Image Reviewed Ultrasound: Report Reviewed, Image Reviewed (CBD 1.14cm, GB polyp? wall thikecning and distension) Problem List - Problems (1) Acute cholecystitis Assessment/Plan: 71yo male MMP including DM Acute cholecystitis with the posibility of choledocholithiasis, CBD 1.14, gallbladder polyp? NPO and IVF hydartion empiric IV antibiotics GI evaluation for ERCP MRCP - eval polyp and CBD Medical clearance for OR - GA Possible cholecystectomy Thursday 10/12 Thank you for the opportunity to participate in the care of this patient. Code(s): K81.0 - ACUTE CHOLECYSTITIS (2) Diabetes mellitus due to underlying condition Code(s): E08.9 - DIABETES DUE TO UNDERLYING CONDITION W/O COMPLICATIONS (3) Hyperglycemia Code(s): R73.9 - HYPERGLYCEMIA, UNSPECIFIED
[2017-10-10] MEDS: morphine SULFATE 4 MG/ML VIAL IVPUSH PRN ×2 (09:37→20:01)
[2017-10-10] MEDS: HYDROCHLOROTHIAZIDE 12.5 MG CAPSULE (FP) PO SCH (09:38)
[2017-10-10] MEDS: amLODIPine BESYLATE 5 MG TABLET (FP) PO SCH (09:38)
[2017-10-10] MEDS: LISINOPRIL 20 MG TABLET (FP) PO SCH (09:38)
[2017-10-10] MEDS ORDERED: PATIENT'S OWN MEDICATION (NON-FORMULARY) (Lisinopril/Hydrochlorothiazide [Lisinopril-Hctz PO SCH (10:00)
[2017-10-10] MEDS: ACETAMINOPHEN 1000 MG/100 ML VIAL (NON FORMULARY) IVPB PRN (11:12)
--- NOTE | 2017-10-10 12:54 | CON.ID ---
Consult - History of Present Illness History of Present Illness: Asked to evaluate this 71 y.o. male with PMH of DM, HTN, HLD presenting with c/ o LLQ abd pain and multiple episodes of vomiting since yesterday. Also reported subjective fever/chills and weakness but no diarrhea. Pt noted to have leukocytosis ( wbc 15.7K) and mild temperature elevation. Currently patient is c /o abd pain mostly in LLQ. - History Source History Provided By: Patient, Family Member Limitations to Obtaining History: No Limitations - Past Medical History Cardio/Vascular: Yes: HTN, Hyperlipdemia Endocrine: Yes: Diabetes Mellitus - Alcohol/Substance Use Hx Alcohol Use: Yes (stopped 25 years ago) - Smoking History Smoking history: Former smoker Have you smoked in the past 12 months: No If you are a former smoker, when did you quit?: 25 years ago Home Medications - Allergies Allergies/Adverse Reactions: Allergies Allergy/AdvReac Type Severity Reaction Status Date / Time No Known Allergies Allergy Verified 11/25/16 16:08 - Home Medications Home Medications: Ambulatory Orders metFORMIN HCL [Glucophage -] 1,000 mg PO BID 04/12/16 Amlodipine Besylate [Norvasc -] 5 mg PO DAILY 05/22/16 Glipizide [Glucotrol Xl] 2.5 mg PO BID 05/22/16 Lisinopril/Hydrochlorothiazide [Lisinopril-Hctz 20-12.5 mg Tab] 1 each PO DAILY 05/22/16 Capsaicin 0.025% [Capsaicin [Nf] -] 1 applic TP BID #1 tube 11/25/16 Review of Systems - Review of Systems Constitutional: reports: Weakness Eyes: reports: No Symptoms. denies: Blind Spots, Blurred Vision, Double Vision , Eye Pain, Floaters, Photophobia, Recent Change in Vision, Other HENT: reports: No Symptoms. denies: Difficult Swallowing, Ear Discharge, Ear Pain, Epistaxis, Gingival Bleeding, Hearing Loss, Mouth Swelling, Nasal Congestion, Ocular Prosthesis, Throat Pain, Toothache, Ringing in Ears, Other Neck: reports: No Symptoms. denies: Decreased ROM, Lumps, Pain on Movement, Stiffness, Swollen Glands, Tenderness, Other Cardiovascular: reports: No Symptoms. denies: Chest Pain, Edema, Palpitations, Shortness of Breath, Other Respiratory: reports: No Symptoms. denies: Cough, Exercise Intolerance, Hemoptysis, Orthopnea, PND, Snoring, SOB, SOB on Exertion, Wheezing, Other Gastrointestinal: reports: Abdominal Pain (generalized but mostly LLQ), Nausea, Vomiting Genitourinary: reports: No Symptoms. denies: Burning, Discharge, Dysuria, Flank Pain, Frequency, Hematuria, Incontinence, Lesions, Menses, Pain, Testicular Mass, Testicular Pain, Testicular Swelling, Urgency, Vaginal Bleeding , Other Musculoskeletal: reports: No Symptoms. denies: Back Pain, Crepitus, Decreased ROM, Extremity Pain, Joint Pain, Joint Swelling, Muscle Pain, Muscle Cramps, Muscle Weakness, Other Integumentary: reports: No Symptoms. denies: Blister, Bruising, Change in Color , Eczema, Erythema, Incision, Lesions, Lump, Pallor, Pruritis, Rash, Wound, Other Neurological: reports: Headache. denies: No Symptoms, Change in LOC, Change in Speech, Confusion, Dizziness, Incoordination, Numbness, Parasthesia, Pre- Existing Deficit, Seizure, Syncope, Tremors, Unsteady Gait, Weakness, Other Endocrine: reports: No Symptoms. denies: Excessive Sweating, Flushing, Increased Hunger, Increased Thirst, Intolerance to Cold, Intolerance to Heat, Unexplained Weight Gain, Unexplained Weight Loss, Other Psychiatric: reports: No Symptoms. denies: Altered Sleep Pattern, Anxiety, Depression, Hallucinations, Panic, Paranoia, Suicidal, Other Pain Intensity: 8 Physical Exam Vital Signs: Vital Signs Temperature 99.7 F H 10/10/17 06:00 Pulse Rate 80 10/10/17 06:00 Respiratory Rate 16 10/10/17 06:00 Blood Pressure 152/74 10/10/17 06:00 O2 Sat by Pulse Oximetry (%) 88 L 10/10/17 09:22 Constitutional: Yes: No Distress, Calm Neck: Yes: Supple Cardiovascular: Yes: Regular Rate and Rhythm Respiratory: Yes: CTA Bilaterally Gastrointestinal: Yes: Normal Bowel Sounds, Soft, Tenderness (LLQ, mild generalized) Renal/: Yes: WNL Musculoskeletal: Yes: WNL Extremities: Yes: WNL Integumentary: Yes: WNL Neurological: Yes: Alert, Oriented Psychiatric: Yes: Alert Labs: CBC, BMP 10/10/17 00:30 10/10/17 00:30 Laboratory Tests 10/10/17 10/10/17 10/10/17 00:30 00:30 00:30 WBC 15.7 H RBC 5.02 Hgb 15.5 Hct 45.3 MCV 90.1 MCH 30.9 MCHC 34.3 RDW 12.7 Plt Count 246 MPV 9.6 Absolute Neuts (auto) 13.6 H Neutrophils % 87.0 H Lymphocytes % 8.9 Monocytes % 3.9 Eosinophils % 0.0 Basophils % 0.2 Nucleated RBC % 0 Sodium 137 Potassium 4.0 Chloride 96 L Carbon Dioxide 30 Anion Gap 11 BUN 9 Creatinine 0.8 Creat Clearance w eGFR > 60 POC Glucometer Random Glucose 323 H* Calcium 9.2 Total Bilirubin 0.5 AST 18 ALT 22 Alkaline Phosphatase 132 H Creatine Kinase Troponin I Total Protein 7.5 Albumin 3.9 Urine Color Straw Urine Appearance Clear Urine pH 8.0 Ur Specific Bow 1.024 Urine Protein Negative Urine Glucose (UA) 3+ H Urine Ketones 1+ H Urine Blood Negative Urine Nitrite Negative Urine Bilirubin Negative Urine Urobilinogen Negative Ur Leukocyte Esterase Negative 10/10/17 10/10/17 10/10/17 00:30 00:30 05:53 WBC RBC Hgb Hct MCV MCH MCHC RDW Plt Count MPV Absolute Neuts (auto) Neutrophils % Lymphocytes % Monocytes % Eosinophils % Basophils % Nucleated RBC % Sodium Potassium Chloride Carbon Dioxide Anion Gap BUN Creatinine Creat Clearance w eGFR POC Glucometer [phone] Random Glucose Calcium Total Bilirubin AST ALT Alkaline Phosphatase Creatine Kinase 113 Troponin I Cancelled < 0.02 Total Protein Albumin Urine Color Urine Appearance Urine pH Ur Specific Bow Urine Protein Urine Glucose (UA) Urine Ketones Urine Blood Urine Nitrite Urine Bilirubin Urine Urobilinogen Ur Leukocyte Esterase 10/10/17 10/10/17 07:04 12:25 WBC RBC Hgb Hct MCV MCH MCHC RDW Plt Count MPV Absolute Neuts (auto) Neutrophils % Lymphocytes % Monocytes % Eosinophils % Basophils % Nucleated RBC % Sodium Potassium Chloride Carbon Dioxide Anion Gap BUN Creatinine Creat Clearance w eGFR POC Glucometer [phone] Random Glucose Calcium Total Bilirubin AST ALT Alkaline Phosphatase Creatine Kinase Troponin I Total Protein Albumin Urine Color Urine Appearance Urine pH Ur Specific Bow Urine Protein Urine Glucose (UA) Urine Ketones Urine Blood Urine Nitrite Urine Bilirubin Urine Urobilinogen Ur Leukocyte Esterase Blood/Urine cultures- results pending Imaging - Results Chest X-ray: Report Reviewed Cat Scan: Report Reviewed Ultrasound: Report Reviewed Problem List - Problems (1) Acute cholecystitis Code(s): K81.0 - ACUTE CHOLECYSTITIS (2) Diabetes mellitus due to underlying condition Code(s): E08.9 - DIABETES DUE TO UNDERLYING CONDITION W/O COMPLICATIONS Assessment/Plan 71 y.o. male with DM, HLD, HTN presenting with acute abdominal pain mostly in LLQ, multiple episodes of n/v, leukocytosis and low grade fever. Abdominal imaging reveals GB wall thickening with pericholecystic fluid and possible CBD dilatation Acute cholecystitis r/o choledocholithiasis -- continue Zosyn empirically -- surgery following -- GI evaluation for ERCP/MRCP -- needs glycemic control -- monitor wbc, temperatures will f/u Thank you
[2017-10-10] MEDS ORDERED: DEXTROSE 5%-WATER 100 ML IVPB ONE (13:56)
[2017-10-10] MEDS ORDERED: HEPARIN NA (PORCINE) 5,000 UNITS/ML 1ML VIAL SQ SCH (14:00)
[2017-10-10] MEDS ORDERED: SODIUM CHLORIDE 1,000 ML IV STA (15:02)
--- NOTE | 2017-10-10 15:26 | CON.GI ---
Consult Consult Specialty:: Gastroenterology ( covering Dr Miranda) Referred by:: Dr Webb Reason for Consultation:: gallstone disease - History of Present Illness Chief Complaint: abdominal pain History of Present Illness: 71M presents with colicky abdominal pain, fever and chills that began yesterday. The history is obtained with the help of [employer] packaging operator # [id number]. He denies vomiting but has nausea. He denies any h/o ulcer or diverticular disease. he has never had an EGD or a colonoscopy. 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 (year): age 44 History of Recent Travel: No Home Medications - Allergies Allergies/Adverse Reactions: Allergies Allergy/AdvReac Type Severity Reaction Status Date / Time No Known Allergies Allergy Verified 11/25/16 16:08 - Home Medications Home Medications: Ambulatory Orders metFORMIN HCL [Glucophage -] 1,000 mg PO BID 04/12/16 Amlodipine Besylate [Norvasc -] 5 mg PO DAILY 05/22/16 Glipizide [Glucotrol Xl] 2.5 mg PO BID 05/22/16 Lisinopril/Hydrochlorothiazide [Lisinopril-Hctz 20-12.5 mg Tab] 1 each PO DAILY 05/22/16 Capsaicin 0.025% [Capsaicin [Nf] -] 1 applic TP BID #1 tube 11/25/16 Family Disease History - Family Disease History Family Disease History: Heart Disease: Father ( [place] 65), Other: Mother ( lived to 98 ) Review of Systems - Review of Systems Constitutional: reports: Chills, Fever Eyes: reports: No Symptoms HENT: reports: No Symptoms Respiratory: reports: No Symptoms Gastrointestinal: reports: Abdominal Pain, Nausea Physical Exam-GI Vital Signs: Vital Signs Temperature 101 F H 10/10/17 15:14 Pulse Rate 99 H 10/10/17 14:03 Respiratory Rate 20 10/10/17 14:03 Blood Pressure 104/60 10/10/17 14:03 O2 Sat by Pulse Oximetry (%) 88 L 10/10/17 09:22 CBC,CMP WBC 15.7 K/mm3 (4.0-10.0) H 10/10/17 00:30 RBC 5.02 M/mm3 (4.00-5.60) 10/10/17 00:30 Hgb 15.5 GM/dL (11.7-16.9) 10/10/17 00:30 Hct 45.3 % (35.4-49) 10/10/17 00:30 MCV 90.1 fl (80-96) 10/10/17 00:30 MCH 30.9 pg (25.7-33.7) 10/10/17 00:30 MCHC 34.3 g/dl (32.0-35.9) 10/10/17 00:30 RDW 12.7 % (11.9-15.9) 10/10/17 00:30 Plt Count 246 K/MM3 (134-434) 10/10/17 00:30 MPV 9.6 fl (7.5-11.1) 10/10/17 00:30 Absolute Neuts (auto) 13.6 K/mm3 (1.5-8.0) H 10/10/17 00:30 Neutrophils % 87.0 % (42.8-82.8) H 10/10/17 00:30 Lymphocytes % 8.9 % (8-40) 10/10/17 00:30 Monocytes % 3.9 % (3.8-10.2) 10/10/17 00:30 Eosinophils % 0.0 % (0-4.5) 10/10/17 00:30 Basophils % 0.2 % (0-2.0) 10/10/17 00:30 Nucleated RBC % 0 % (0-0) 10/10/17 00:30 Sodium 137 mmol/L (136-145) 10/10/17 00:30 Potassium 4.0 mmol/L (3.5-5.1) 10/10/17 00:30 Chloride 96 mmol/L (98-107) L 10/10/17 00:30 Carbon Dioxide 30 mmol/L (21-32) 10/10/17 00:30 Anion Gap 11 (8-16) 10/10/17 00:30 BUN 9 mg/dL (7-18) 10/10/17 00:30 Creatinine 0.8 mg/dL (0.7-1.3) 10/10/17 00:30 Creat Clearance w eGFR > 60 (>60) 10/10/17 00:30 POC Glucometer 262 UNITS (80-120) 10/10/17 12:25 Random Glucose 323 mg/dL (74-106) H* 10/10/17 00:30 Calcium 9.2 mg/dL (8.5-10.1) 10/10/17 00:30 Total Bilirubin 0.5 mg/dL (0.2-1.0) 10/10/17 00:30 AST 18 U/L (15-37) 10/10/17 00:30 ALT 22 U/L (12-78) 10/10/17 00:30 Alkaline Phosphatase 132 U/L (45-117) H 10/10/17 00:30 Creatine Kinase 113 IU/L (39-308) 10/10/17 00:30 Troponin I < 0.02 ng/ml (0.00-0.05) 10/10/17 00:30 Total Protein 7.5 g/dl (6.4-8.2) 10/10/17 00:30 Albumin 3.9 g/dl (3.4-5.0) 10/10/17 00:30 Current Medications Generic Name Dose Route Start Last Admin Trade Name Freq PRN Reason Stop Dose Admin Acetaminophen 1,000 mg 10/10/17 10:16 10/10/17 11:12 Ofirmev Injection - IVPB 1,000 mg Q6H PRN Administration FEVER Amlodipine Besylate 5 mg 10/10/17 10:00 10/10/17 09:38 Norvasc - PO 5 mg DAILY PETER Administration Hydrochlorothiazide 12.5 mg 10/10/17 10:00 10/10/17 09:38 Hctz - PO 12.5 mg DAILY PETER Administration Piperacillin Sod/Tazobactam 100 mls @ 200 mls/hr 10/11/17 02:00 Sod 4.5 gm/ Dextrose IVPB Q8H-IV PETER Protocol Sodium Chloride 1,000 mls @ 100 mls/hr 10/10/17 15:05 Normal Saline - IV ASDIR PETER Insulin Aspart 0 units 10/10/17 16:30 Novolog Vial SQ ACHS [facility] Protocol Lisinopril 20 mg 10/10/17 10:00 10/10/17 09:38 Prinivil PO 20 mg DAILY PETER Administration Morphine Sulfate 4 mg 10/10/17 07:24 10/10/17 09:37 Morphine Sulfate IVPUSH 4 mg Q6H PRN Administration PAIN LEVEL 7 - 10 Ondansetron HCl 4 mg 10/10/17 07:18 Zofran Injection IVPUSH Q6H PRN NAUSEA Constitutional: Yes: No Distress Eyes: Yes: Conjunctiva Clear HENT: Yes: Atraumatic Neck: Yes: Trachea Midline Cardiovascular: Yes: Regular Rate and Rhythm Respiratory: Yes: CTA Bilaterally Gastrointestinal Inspection: Yes: Scars (RIH) ...Auscultate: Yes: Normoactive Bowel Sounds ...Palpate: Yes: Soft, Other (nontender) ...Rectal Exam: Yes: Guaiac Negative (2+ prostate, brown guaiac negative stool) Labs: CBC, BMP 10/10/17 00:30 10/10/17 00:30 Imaging - Results Cat Scan: Image Reviewed Ultrasound: Report Reviewed Problem List - Problems (1) Acute cholecystitis Assessment/Plan: The symptoms and imaging are most consistent with acute cholecystitis given the stones and GB wall thickening and pericholecystic fluid. The sonogram suggest CBD dilation but the CT does not. Agree with need for an MRCP. I have used the [employer] packaging operator to get informed consent for an ERCP should it need to be undertaken. I have informed Moisés and his son of the potential for such complications as perforation, hemorrhage and multiorgan failure that can arise after ERCP induced pancreatitis. He has signed an informed consent. Continue antibiotics. Dr. Miranda will return on 10/12/17. Code(s): K81.0 - ACUTE CHOLECYSTITIS (2) History of inguinal hernia repair Code(s): Z98.890 - OTHER SPECIFIED POSTPROCEDURAL STATES; Z87.19 - PERSONAL HISTORY OF OTHER DISEASES OF THE DIGESTIVE SYSTEM (3) Hypertension Code(s): I10 - ESSENTIAL (PRIMARY) HYPERTENSION
[2017-10-10] MEDS: INSULIN (NOVOLOG) ASPART 100 UNITS/ML 10ML VIAL SQ SCH ×2 (17:36→21:18)
--- NOTE | 2017-10-10 19:00 | EKG ---
Test Reason : Blood Pressure : / mmHG Vent. Rate : 066 BPM Atrial Rate : 066 BPM P-R Int : 204 ms QRS Dur : 100 ms QT Int : 450 ms P-R-T Axes : 076 024 064 degrees QTc Int : 471 ms NORMAL SINUS RHYTHM WITH SINUS ARRHYTHMIA LOW VOLTAGE QRS BORDERLINE ECG NO PREVIOUS ECGS AVAILABLE Confirmed by MD MATTHEW, DUANE ([id number]) on 10/10/2017 7:00:17 PM Referred By: MD MORRIS Confirmed By:DUANE CASTRO MD
[2017-10-10] MEDS ORDERED: INSULIN (NOVOLOG) ASPART 100 UNITS/ML 10ML VIAL ONE (21:10)
[2017-10-11] MEDS ORDERED: PIPERACILLIN/TAZOBACTAM 4.5 GM VIAL IVPB ONE ×3 (01:34→17:22)
[2017-10-11] MEDS ORDERED: DEXTROSE 5%-WATER 100 ML IVPB ONE ×3 (01:35→17:23)
[2017-10-11] MEDS: PIPERACILLIN/TAZOB 4.5 GM 4.5 GM in DEXTROSE 5%-WATER 100 ML IVPB SCH ×3 (02:26→17:32)
[2017-10-11] MEDS: morphine SULFATE 4 MG/ML VIAL IVPUSH PRN ×2 (02:32→09:11)
[2017-10-11] MEDS: INSULIN (NOVOLOG) ASPART 100 UNITS/ML 10ML VIAL SQ SCH ×4 (06:07→21:48)
[2017-10-11 08:56] LABS: BASO % 0.2 % (0-2.0); HEMATOCRIT 42.5 % (35.4-49); HEMOGLOBIN 14.6 GM/dL (11.7-16.9); LYMPH % 6.6 % (8-40); MCH 30.9 pg (25.7-33.7); MCHC 34.3 g/dl (32.0-35.9); MEAN CELL VOLUME 89.9 fl (80-96); MEAN PLT VOLUME 9.1 fl (7.5-11.1); MONO % 6.3 % (3.8-10.2); NEUT % 86.9 % (42.8-82.8); PLATELET COUNT 202 K/MM3 (134-434); RBC 4.72 M/mm3 (4.00-5.60); RDW 13.3 % (11.9-15.9); WHITE BLOOD COUNT 18.5 K/mm3 (4.0-10.0)
[2017-10-11] MEDS: HYDROCHLOROTHIAZIDE 12.5 MG CAPSULE (FP) PO SCH (09:11)
[2017-10-11] MEDS: LISINOPRIL 20 MG TABLET (FP) PO SCH (09:11)
[2017-10-11] MEDS: amLODIPine BESYLATE 5 MG TABLET (FP) PO SCH (09:11)
[2017-10-11 09:27] LABS: ALBUMIN 2.8 g/dl (3.4-5.0); ANION GAP 9 (8-16); BILIRUBIN,DIRECT 0.2 mg/dL (0.0-0.2); BLOOD UREA NITROGEN 15 mg/dL (7-18); CALCIUM 7.9 mg/dL (8.5-10.1); CHLORIDE 101 mmol/L (98-107); CO2 29 mmol/L (21-32); GLUCOSE,RANDOM 236 mg/dL (74-106); MAGNESIUM 1.7 mg/dL (1.8-2.4); POTASSIUM 3.1 mmol/L (3.5-5.1); SODIUM 139 mmol/L (136-145)
[2017-10-11 09:30] LABS: BILIRUBIN,TOTAL 0.4 mg/dL (0.2-1.0); CREATININE 0.8 mg/dL (0.7-1.3)
--- NOTE | 2017-10-11 12:01 | PN ---
Physical Exam: SUBJECTIVE: Patient seen and examined OBJECTIVE: Vital Signs Period Temp Pulse Resp BP Sys/Cooley Pulse Ox Last 24 Hr 98.4 F-101 F 89-99 20-20 104-134/60-70 98 GENERAL: Awake, alert, and fully oriented, in no acute distress. Ill appearing LUNGS: Breath sounds equal, clear to auscultation bilaterally. No wheezes, and no crackles. No accessory muscle use. HEART: Regular rate and rhythm, normal S1 and S2 ABDOMEN: Soft, diffusely tender all quadrants, no guarding, no rebound MUSCULOSKELETAL: Normal range of motion at all joints. No bony deformities or tenderness. UPPER EXTREMITIES: 2+ pulses, warm, well-perfused. No cyanosis. No clubbing. No peripheral edema. LOWER EXTREMITIES: 2+ pulses, warm, well-perfused. No calf tenderness. No peripheral edema. NEUROLOGICAL: Cranial nerves II-XII intact. Normal speech. Laboratory Results - last 24 hr 10/10/17 10/10/17 10/10/17 12:25 12:33 15:10 WBC RBC Hgb Hct MCV MCH MCHC RDW Plt Count MPV Absolute Neuts (auto) Neutrophils % Lymphocytes % Monocytes % Eosinophils % Basophils % Nucleated RBC % Sodium Potassium Chloride Carbon Dioxide Anion Gap BUN Creatinine Creat Clearance w eGFR POC Glucometer 262 Random Glucose Lactic Acid Calcium Magnesium Total Bilirubin Direct Bilirubin AST ALT Alkaline Phosphatase C-Reactive Protein Total Protein Albumin Total Amylase Lipase Blood Type O POSITIVE O POSITIVE Antibody Screen Negative 10/10/17 10/10/17 10/10/17 15:55 17:35 21:17 WBC RBC Hgb Hct MCV MCH MCHC RDW Plt Count MPV Absolute Neuts (auto) Neutrophils % Lymphocytes % Monocytes % Eosinophils % Basophils % Nucleated RBC % Sodium Potassium Chloride Carbon Dioxide Anion Gap BUN Creatinine Creat Clearance w eGFR POC Glucometer 297 228 Random Glucose Lactic Acid 1.8 Calcium Magnesium Total Bilirubin Direct Bilirubin AST ALT Alkaline Phosphatase C-Reactive Protein Total Protein Albumin Total Amylase Lipase Blood Type Antibody Screen 10/11/17 10/11/17 10/11/17 06:04 08:12 08:12 WBC 18.5 H RBC 4.72 Hgb 14.6 Hct 42.5 MCV 89.9 MCH 30.9 MCHC 34.3 RDW 13.3 Plt Count 202 MPV 9.1 Absolute Neuts (auto) 16.1 H Neutrophils % 86.9 H Lymphocytes % 6.6 L D Monocytes % 6.3 Eosinophils % 0.0 Basophils % 0.2 Nucleated RBC % 0 Sodium 139 Potassium 3.1 L D Chloride 101 Carbon Dioxide 29 Anion Gap 9 BUN 15 Creatinine 0.8 Creat Clearance w eGFR > 60 POC Glucometer 237 Random Glucose 236 H D Lactic Acid Calcium 7.9 L Magnesium 1.7 L Total Bilirubin Direct Bilirubin AST ALT Alkaline Phosphatase C-Reactive Protein Total Protein Albumin Total Amylase Lipase Blood Type Antibody Screen 10/11/17 10/11/17 10/11/17 08:12 08:12 11:25 WBC RBC Hgb Hct MCV MCH MCHC RDW Plt Count MPV Absolute Neuts (auto) Neutrophils % Lymphocytes % Monocytes % Eosinophils % Basophils % Nucleated RBC % Sodium Potassium Chloride Carbon Dioxide Anion Gap BUN Creatinine Creat Clearance w eGFR POC Glucometer 227 Random Glucose Lactic Acid Calcium Magnesium Total Bilirubin 0.4 Direct Bilirubin 0.2 AST 20 ALT 22 Alkaline Phosphatase 67 D C-Reactive Protein 29.6 H Total Protein 6.0 L Albumin 2.8 L Total Amylase 19 L Lipase 47 L Blood Type Antibody Screen Active Medications Generic Name Dose Route Start Last Admin Trade Name Freq PRN Reason Stop Dose Admin Acetaminophen 1,000 mg 10/10/17 10:16 10/10/17 11:12 Ofirmev Injection - IVPB 1,000 mg Q6H PRN Administration FEVER Amlodipine Besylate 5 mg 10/10/17 10:00 10/11/17 09:11 Norvasc - PO 5 mg DAILY PETER Administration Hydrochlorothiazide 12.5 mg 10/10/17 10:00 10/11/17 09:11 Hctz - PO 12.5 mg DAILY PETER Administration Piperacillin Sod/Tazobactam 100 mls @ 200 mls/hr 10/11/17 02:00 10/11/17 09: 30 Sod 4.5 gm/ Dextrose IVPB 200 mls/hr Q8H-IV PETER Administration Protocol Sodium Chloride 1,000 mls @ 100 mls/hr 10/10/17 15:05 10/10/17 15:30 Normal Saline - IV 100 mls/hr ASDIR PETER Administration Insulin Aspart 0 units 10/10/17 16:30 10/11/17 11:55 Novolog Vial SQ 4 units ACHS PETER Administration Protocol Lisinopril 20 mg 10/10/17 10:00 10/11/17 09:11 Prinivil PO 20 mg DAILY PETER Administration Morphine Sulfate 4 mg 10/10/17 07:24 10/11/17 09:11 Morphine Sulfate IVPUSH 4 mg Q6H PRN Administration PAIN LEVEL 7 - 10 Ondansetron HCl 4 mg 10/10/17 07:18 Zofran Injection IVPUSH Q6H PRN NAUSEA Imaging 10/10 MRCP: acute cholecystitis, no sign of choledocholelithiasis, no duct dilitation 10/10 US: cholelithiasis, overdistension, probably mild diffuse wall thickening, small amount of pericholecystic fluids, +sono Lyons's sign, suggestive of acute cholecystitis; equivocal CBD dilitation 10/10 CTAP: cholelithiasis, equivocal minimal gallbladder wall thickening, no definite biliary tract dilitation ASSESSMENT/PLAN: 71 year-old male with a PMH significant for HTN and NIDDM. Admitted for acute cholecystitis. Sepsis secondary to acute cholecystitis Cholelithiasis r/o Choledocholelithiasis --WBC trending up 18.5k (<--15.7k), Tm 101 --MRCP: no choledocholelithiasis --continue Zosyn --plan for lap sarita tomorrow --GI, ID, surgery following Hypertension --BP is stable --continue amlodipine, lisinopril, HCTZ --monitor closely for signs of hypotension due to sepsis NIDDM --Novolog sliding scale coverage Hypokalemia Hypomagnesemia --repleted FEN Fluids: NS @ 100mL/hr Electrolytes: replete as indicated Nutrition: NPO DVT prophylaxis: hold chemical prophylaxis for possible procedures; SCDs Dispo: continues to require inpatient care. Full code. Visit type - Emergency Visit Emergency Visit: Yes ED Registration Date: 10/10/17 Care time: The patient presented to the Emergency Department on the above date and was hospitalized for further evaluation of their emergent condition. - New Patient This patient is new to me today: No - Critical Care Critical Care patient: No
--- NOTE | 2017-10-11 12:11 | PN ---
Progress Note, Physician Chief Complaint: abdominal pain History of Present Illness: 71yo male PMH DM presents with left lower quadrant abdominal pain 1 day. Patient has a history significant for hypertension, hyperlipidemia and type 2 diabetes. He has been lethargic. but hemodynamically stable. - Current Medication List Current Medications: Active Medications Acetaminophen (Ofirmev Injection -) 1,000 mg IVPB Q6H PRN PRN Reason: FEVER Last Admin: 10/10/17 11:12 Dose: 1,000 mg Amlodipine Besylate (Norvasc -) 5 mg PO DAILY PETER Last Admin: 10/11/17 09:11 Dose: 5 mg Hydrochlorothiazide (Hctz -) 12.5 mg PO DAILY PETER Last Admin: 10/11/17 09:11 Dose: 12.5 mg Piperacillin Sod/Tazobactam (Sod 4.5 gm/ Dextrose) 100 mls @ 200 mls/hr IVPB Q8H-IV PETER; Protocol Last Admin: 10/11/17 09:30 Dose: 200 mls/hr Sodium Chloride (Normal Saline -) 1,000 mls @ 100 mls/hr IV ASDIR PETER Last Admin: 10/10/17 15:30 Dose: 100 mls/hr Insulin Aspart (Novolog Vial) 0 units SQ ACHS PETER; Protocol Last Admin: 10/11/17 11:55 Dose: 4 units Lisinopril (Prinivil) 20 mg PO DAILY [facility] Last Admin: 10/11/17 09:11 Dose: 20 mg Morphine Sulfate (Morphine Sulfate) 4 mg IVPUSH Q6H PRN PRN Reason: PAIN LEVEL 7 - 10 Last Admin: 10/11/17 09:11 Dose: 4 mg Ondansetron HCl (Zofran Injection) 4 mg IVPUSH Q6H PRN PRN Reason: NAUSEA - Objective Vital Signs: Vital Signs Temperature 98.4 F 10/11/17 06:59 Pulse Rate 93 H 10/11/17 06:59 Respiratory Rate 20 10/11/17 06:59 Blood Pressure 134/70 10/11/17 06:59 O2 Sat by Pulse Oximetry (%) 98 10/10/17 21:00 Vital Signs Period Temp Pulse Resp BP Sys/Cooley Pulse Ox Last 24 Hr 98.4 F-101 F 89-99 20-20 104-134/60-70 98 Constitutional: Yes: Well Nourished, No Distress, Calm Eyes: Yes: Conjunctiva Clear, EOM Intact HENT: Yes: Atraumatic, Normocephalic Neck: Yes: Supple, Trachea Midline Cardiovascular: Yes: S1, S2 Respiratory: Yes: Regular, CTA Bilaterally Gastrointestinal: Yes: Normal Bowel Sounds, Soft, Tenderness, Tenderness, Epigastrium (RUQ). No: Tenderness, Rebound ...Rectal Exam: No: Deferred Genitourinary: No: CVA Tenderness - Left, CVA Tenderness - Right Extremities: No: Cool, Cyanosis Wound/Incision: Yes: Clean/Dry, Well Approximated Neurological: No: Alert, Oriented Psychiatric: No: Alert, Oriented Labs: CBC, BMP 10/11/17 08:12 10/11/17 08:12 Problem List - Problems (1) Acute cholecystitis Assessment/Plan: 71yo male MMP including DM Acute cholecystitis with the posibility of choledocholithiasis, CBD 1.14, gallbladder polyp? NPO and IVF hydartion empiric IV antibiotics Discussed with patient risks, benefits and alternatives of laparoscopic possible open cholecystectomy, including but not limited to bleeding, infection , injury to adjacent structures, leak or injury, intraabdominal abscess, incisional hernia, need for further procedures, ; alternatives include antibiotics, delayed or no surgery - risks of this include failure of nonoperative therapy, perforation, sepsis, recurrence, . Patient desires to proceed with operation - will take to OR for above. Informed consent signed for same. Discussed with patient risks, benefits and alternatives of laparoscopic possible open ectomy, including but not limited to bleeding, infection, injury to adjacent structures, leak or injury, intraabdominal abscess, incisional hernia, need for further procedures, ; alternatives include antibiotics, delayed or no surgery - risks of this include failure of nonoperative therapy, perforation, sepsis, recurrence, . Patient desires to proceed with operation - will take to OR for above. Informed consent signed for same. Code(s): K81.0 - ACUTE CHOLECYSTITIS (2) Diabetes mellitus due to underlying condition Code(s): E08.9 - DIABETES DUE TO UNDERLYING CONDITION W/O COMPLICATIONS (3) Hyperglycemia Code(s): R73.9 - HYPERGLYCEMIA, UNSPECIFIED
[2017-10-11] MEDS ORDERED: MAGNESIUM SULF 50% (8.12 MEQ/2 ML-1 GM VIAL) IVPB ONE (12:12)
[2017-10-11] MEDS ORDERED: POTASSIUM CHLORIDE TABS 20 MEQ TABLET.ER (FP) PO SCH (12:15)
[2017-10-11] MEDS: ACETAMINOPHEN 1000 MG/100 ML VIAL (NON FORMULARY) IVPB PRN (13:08)
[2017-10-11] MEDS: POTASSIUM CHLORIDE TABS 20 MEQ TABLET.ER (FP) PO SCH ×2 (13:09→17:32)
[2017-10-11] MEDS ORDERED: MAGNESIUM 2GM/50ML STERILE WATER IVPB IVPB ONE (13:15)
--- NOTE | 2017-10-11 13:19 | PN ---
Progress Note, Physician History of Present Illness: Events noted. Pt currently resting. Low grade fever this a.m., 101F last evening. WBC count increased yesterday. MRI results noted. - Current Medication List Current Medications: Active Medications Acetaminophen (Ofirmev Injection -) 1,000 mg IVPB Q6H PRN PRN Reason: FEVER Last Admin: 10/11/17 13:08 Dose: 1,000 mg Amlodipine Besylate (Norvasc -) 5 mg PO DAILY PETER Last Admin: 10/11/17 09:11 Dose: 5 mg Hydrochlorothiazide (Hctz -) 12.5 mg PO DAILY PETER Last Admin: 10/11/17 09:11 Dose: 12.5 mg Piperacillin Sod/Tazobactam (Sod 4.5 gm/ Dextrose) 100 mls @ 200 mls/hr IVPB Q8H-IV PETER; Protocol Last Admin: 10/11/17 09:30 Dose: 200 mls/hr Sodium Chloride (Normal Saline -) 1,000 mls @ 100 mls/hr IV ASDIR PETER Last Admin: 10/10/17 15:30 Dose: 100 mls/hr Insulin Aspart (Novolog Vial) 0 units SQ ACHS PETER; Protocol Last Admin: 10/11/17 11:55 Dose: 4 units Lisinopril (Prinivil) 20 mg PO DAILY [facility] Last Admin: 10/11/17 09:11 Dose: 20 mg Magnesium Sulfate (Magnesium Sulf 2 G/50 Ml Bag) 2 gm IVPB ONCE ONE Stop: 10/11/17 13:16 Morphine Sulfate (Morphine Sulfate) 4 mg IVPUSH Q6H PRN PRN Reason: PAIN LEVEL 7 - 10 Last Admin: 10/11/17 09:11 Dose: 4 mg Ondansetron HCl (Zofran Injection) 4 mg IVPUSH Q6H PRN PRN Reason: NAUSEA Last Admin: 10/11/17 13:09 Dose: 4 mg Potassium Chloride (K-Dur -) 40 meq PO Q6H PETER Stop: 10/11/17 18:16 Last Admin: 10/11/17 13:09 Dose: 40 meq - Objective Vital Signs: Vital Signs Temperature 98.4 F 10/11/17 06:59 Pulse Rate 93 H 10/11/17 06:59 Respiratory Rate 20 10/11/17 06:59 Blood Pressure 134/70 10/11/17 06:59 O2 Sat by Pulse Oximetry (%) 98 10/10/17 21:00 Constitutional: Yes: No Distress Cardiovascular: Yes: Tachycardia Respiratory: Yes: Regular Gastrointestinal: Yes: Normal Bowel Sounds, Soft, Tenderness (RUQ) Edema: No Integumentary: Yes: WNL Labs: CBC, BMP 10/11/17 08:12 10/11/17 08:12 Microbiology 10/10/17 12:35 Blood - Peripheral Venous Blood Culture - Preliminary NO GROWTH OBTAINED AFTER 24 HOURS, INCUBATION TO CONTINUE FOR 4 DAYS. 10/10/17 12:33 Blood - Peripheral Venous Blood Culture - Preliminary NO GROWTH OBTAINED AFTER 24 HOURS, INCUBATION TO CONTINUE FOR 4 DAYS. 10/10/17 07:15 Urine - Urine Clean Catch Urine Culture - Final NO GROWTH OBTAINED Problem List - Problems (1) Acute cholecystitis Code(s): K81.0 - ACUTE CHOLECYSTITIS (2) Diabetes mellitus due to underlying condition Code(s): E08.9 - DIABETES DUE TO UNDERLYING CONDITION W/O COMPLICATIONS Assessment/Plan 71 y.o. male with DM, HLD, HTN presenting with acute abdominal pain mostly in LLQ, multiple episodes of n/v, leukocytosis and low grade fever. Abdominal imaging reveals GB wall thickening Acute cholecystitis Sepsis Leukocytosis DM HTN HLD -- MRI finding c/w acute cholecytitis, no CBD dilatation -- pt with increasing wbc, febrile -- continue Zosyn empirically -- surgery following, plan for lap cholecystectomy tomorrow -- monitor closely
--- NOTE | 2017-10-11 17:01 | PN ---
GI Progress Note Subjective: GI NOte: Pain has improved. MRCP revealed no CBD stones. A cyst may exist in the tail of the pancreas but will require MRI - Objective Vital Signs: Vital Signs Temperature 98.4 F 10/11/17 06:59 Pulse Rate 93 H 10/11/17 06:59 Respiratory Rate 20 10/11/17 06:59 Blood Pressure 134/70 10/11/17 06:59 O2 Sat by Pulse Oximetry (%) 98 10/10/17 21:00 Laboratory Tests 10/11/17 10/11/17 08:12 08:12 Total Bilirubin 0.4 Direct Bilirubin 0.2 AST 20 ALT 22 Alkaline Phosphatase 67 D C-Reactive Protein 29.6 H Total Amylase 19 L Lipase 47 L Constitutional: No Distress ...Auscultate: Yes: Normoactive Bowel Sounds ...Palpate: Yes: Soft, Tenderness (mild RUQ tenderness) Labs: CBC, BMP 10/11/17 08:12 10/11/17 08:12 Problem List - Problems (1) Acute cholecystitis Assessment/Plan: Acute cholecystitis supported by MRCP. NO CBD stones. Can proceed with lap choly. Dr. Miranda will return on 10/12/17. Code(s): K81.0 - ACUTE CHOLECYSTITIS (2) History of inguinal hernia repair Code(s): Z98.890 - OTHER SPECIFIED POSTPROCEDURAL STATES; Z87.19 - PERSONAL HISTORY OF OTHER DISEASES OF THE DIGESTIVE SYSTEM (3) Hypertension Code(s): I10 - ESSENTIAL (PRIMARY) HYPERTENSION
[2017-10-11] MEDS: SODIUM CHLORIDE 1,000 ML IV SCH (21:34)
[2017-10-12] MEDS ORDERED: PIPERACILLIN/TAZOBACTAM 4.5 GM VIAL IVPB ONE ×3 (01:33→18:22)
[2017-10-12] MEDS ORDERED: DEXTROSE 5%-WATER 100 ML IVPB ONE ×3 (01:34→18:22)
[2017-10-12] MEDS: PIPERACILLIN/TAZOB 4.5 GM 4.5 GM in DEXTROSE 5%-WATER 100 ML IVPB SCH ×3 (01:40→19:00)
[2017-10-12] MEDS: morphine SULFATE 4 MG/ML VIAL IVPUSH PRN (04:26)
[2017-10-12] MEDS: ACETAMINOPHEN 1000 MG/100 ML VIAL (NON FORMULARY) IVPB PRN (06:16)
[2017-10-12] MEDS: INSULIN (NOVOLOG) ASPART 100 UNITS/ML 10ML VIAL SQ SCH ×2 (06:16→11:16)
[2017-10-12] MEDS ORDERED: INSULIN (NOVOLOG) ASPART 100 UNITS/ML 10ML VIAL ONE (06:41)
[2017-10-12 07:35] LABS: BASO % 0.2 % (0-2.0); HEMATOCRIT 40.3 % (35.4-49); HEMOGLOBIN 14.1 GM/dL (11.7-16.9); LYMPH % 5.4 % (8-40); MCH 31.3 pg (25.7-33.7); MCHC 34.9 g/dl (32.0-35.9); MEAN CELL VOLUME 89.6 fl (80-96); MEAN PLT VOLUME 9.2 fl (7.5-11.1); MONO % 7.7 % (3.8-10.2); NEUT % 86.7 % (42.8-82.8); PLATELET COUNT 154 K/MM3 (134-434); RBC 4.51 M/mm3 (4.00-5.60); RDW 13.2 % (11.9-15.9); WHITE BLOOD COUNT 16.5 K/mm3 (4.0-10.0)
[2017-10-12 07:52] LABS: ALBUMIN 2.4 g/dl (3.4-5.0); ANION GAP 9 (8-16); BLOOD UREA NITROGEN 15 mg/dL (7-18); CALCIUM 7.7 mg/dL (8.5-10.1); CHLORIDE 100 mmol/L (98-107); CO2 28 mmol/L (21-32); CREATININE 0.7 mg/dL (0.7-1.3); GLUCOSE,RANDOM 223 mg/dL (74-106); POTASSIUM 3.7 mmol/L (3.5-5.1); SGOT/AST 31 U/L (15-37); SGPT/ALT 25 U/L (12-78); SODIUM 137 mmol/L (136-145)
[2017-10-12 07:54] LABS: ALK PHOS 87 U/L (45-117); BILIRUBIN,TOTAL 0.8 mg/dL (0.2-1.0); TOT PROT 5.8 g/dl (6.4-8.2)
[2017-10-12] MEDS: HYDROCHLOROTHIAZIDE 12.5 MG CAPSULE (FP) PO SCH (10:42)
[2017-10-12] MEDS: amLODIPine BESYLATE 5 MG TABLET (FP) PO SCH (10:42)
[2017-10-12] MEDS: LISINOPRIL 20 MG TABLET (FP) PO SCH (10:42)
[2017-10-12] MEDS ORDERED: MIDAZOLAM HCL 2 MG/2 ML SINGLE DOSE VIAL ONE (11:28)
[2017-10-12] MEDS ORDERED: LIDOCAINE HCL/PF 2% SDV 5ML VIAL ONE (11:29)
[2017-10-12] MEDS ORDERED: PROPOFOL 20 ML ONE (11:29)
[2017-10-12] MEDS ORDERED: DESFLURANE GAS 240 ML BOTTLE IH ONE (11:32)
[2017-10-12] MEDS ORDERED: BUPIVACAINE HCL/PF 0.5% (5MG/ML) 10 ML VIAL ONE (11:46)
[2017-10-12] MEDS ORDERED: ONDANSETRON 4 MG/2 ML VIAL IVPUSH PRN (12:13)
[2017-10-12] MEDS ORDERED: LACTATED RINGERS SOLUTION 1,000 ML IV SCH (12:15)
[2017-10-12] MEDS ORDERED: BUPIVACAINE HCL/PF 0.5% (5MG/ML) 10 ML VIAL IJ ONE (12:50)
--- NOTE | 2017-10-12 13:17 | PN ---
Progress Note, Physician History of Present Illness: patient going for or today no specific issues - Current Medication List Current Medications: Active Medications Acetaminophen (Ofirmev Injection -) 1,000 mg IVPB Q6H PRN PRN Reason: FEVER Last Admin: 10/12/17 06:16 Dose: 1,000 mg Amlodipine Besylate (Norvasc -) 5 mg PO DAILY [facility]ER Last Admin: 10/12/17 10:42 Dose: 5 mg Fentanyl (Sublimaze Injection -) 50 mcg IVPUSH [id number] PRN PRN Reason: PAIN-PACU ORDER X 4 DOSES ONLY Stop: 10/12/17 18:00 Hydrochlorothiazide (Hctz -) 12.5 mg PO DAILY [facility] Last Admin: 10/12/17 10:42 Dose: 12.5 mg Piperacillin Sod/Tazobactam (Sod 4.5 gm/ Dextrose) 100 mls @ 200 mls/hr IVPB Q8H-IV PEETR; Protocol Last Admin: 10/12/17 10:42 Dose: 200 mls/hr Sodium Chloride (Normal Saline -) 1,000 mls @ 100 mls/hr IV ASDIR PETER Last Admin: 10/11/17 21:34 Dose: 100 mls/hr Lactated Ringer's (Lactated Ringers Solution) 1,000 mls @ 125 mls/hr IV ASDIR PETER Insulin Aspart (Novolog Vial) 0 units SQ ACHS [facility]; Protocol Last Admin: 10/12/17 11:16 Dose: Not Given Lisinopril (Prinivil) 20 mg PO DAILY [facility] Last Admin: 10/12/17 10:42 Dose: 20 mg Morphine Sulfate (Morphine Sulfate) 4 mg IVPUSH Q6H PRN PRN Reason: PAIN LEVEL 7 - 10 Last Admin: 10/12/17 04:26 Dose: 4 mg Ondansetron HCl (Zofran Injection) 4 mg IVPUSH Q6H PRN PRN Reason: NAUSEA Last Admin: 10/11/17 13:09 Dose: 4 mg Ondansetron HCl (Zofran Injection) 4 mg IVPUSH Q6H PRN PRN Reason: NAUSEA AND/OR VOMITING Stop: 10/13/17 01:00 - Objective Vital Signs: Vital Signs Temperature 98.5 F 10/12/17 10:00 Pulse Rate 84 10/12/17 10:00 Respiratory Rate 20 18 10:00 Blood Pressure 122/68 10/12/17 10:00 O2 Sat by Pulse Oximetry (%) 94 L 10/11/17 21:00 Constitutional: Yes: Calm, Mild Distress Eyes: Yes: Conjunctiva Clear Cardiovascular: Yes: Regular Rate and Rhythm Respiratory: Yes: Regular, CTA Bilaterally Gastrointestinal: Yes: Normal Bowel Sounds, Soft Musculoskeletal: Yes: WNL Extremities: Yes: WNL Neurological: Yes: Alert, Oriented Psychiatric: Yes: Alert, Oriented Labs: CBC, BMP 10/12/17 06:00 10/12/17 06:00 Assessment/Plan Problem List - Problems (1) Acute gangrenous cholecystitis Code(s): K81.0 - ACUTE CHOLECYSTITIS (2) Acute cholecystitis Code(s): K81.0 - ACUTE CHOLECYSTITIS (3) Diabetes mellitus due to underlying condition Code(s): E08.9 - DIABETES DUE TO UNDERLYING CONDITION W/O COMPLICATIONS (4) Hyperglycemia Code(s): R73.9 - HYPERGLYCEMIA, UNSPECIFIED plan continue current mgmt continue abx hydration rest as per surgery await for surgery
[2017-10-12] MEDS ORDERED: ROCURONIUM BROMIDE 50 MG/5 ML VIAL ONE (13:37)
[2017-10-12] MEDS ORDERED: ACETAMINOPHEN INJECTION 100 ML IVPB ONE (14:05)
[2017-10-12] MEDS ORDERED: NEOSTIGMINE METHYLSULFATE 0.5 MG/ML - 10 ML MDV ONE (14:05)
[2017-10-12] MEDS ORDERED: GLYCOPYRROLATE 0.2 MG/1 ML VIAL ONE (14:05)
--- NOTE | 2017-10-12 15:52 | OP ---
Operative Note - Note: Operative Date: 10/12/17 Pre-Operative Diagnosis: Acute cholecystitis Operation: Laparoscopic convertered to open partial cholecystetcomy Findings: Grossly gangrenous gallbladder with areas of purulent peel and full thickness necrosis. Infundibulum left open with drain in the neck and stones cleared and sent. flat drain in the hepatic fossa. Post-Operative Diagnosis: Other (Acute gangrenous cholecystits) Surgeon: Luís Webb Review Rn: Teresa Storey Anesthesiologist/ORGANIZATIONAL DEVELOPMENT MANAGER: Tamiko De La Torre Anesthesia: General Specimens Removed: partial gallbladder and stone Estimated Blood Loss (mls): 100 Drains & Tubes with Location: NGT, #1 round size 10 gallbladder neck, #2 flat size 10 liver fossa Fluid Volume Replaced (mls): 1,800 (crystalloid ) Operative Report Dictated: Yes
[2017-10-12] MEDS: INSULIN SLIDING SCALE (NOVOLOG) 1 VIAL SQ SCH ×2 (16:00→22:32)
--- NOTE | 2017-10-12 16:00 | SURG ---
Surgery Architect Naval Note Architect Naval: Teresa Storey PA-C Date of Service: 10/12/17 Diagnosis: Acute cholecystitis Procedure: Laparoscopic convertered to open partial cholecystetcomy I was present for the entirety of the operative procedure. For further detail, please refer to operative report. Visit type - Case Type Case Type: ED Admission - Emergency Emergency Visit: Yes ED Registration Date: 10/10/17 Care time: The patient presented to the Emergency Department on the above date and was hospitalized for further evaluation of their emergent condition. - New patient This patient is new to me today: Yes Date on this admission: 10/12/17
[2017-10-12] MEDS ORDERED: ACETAMINOPHEN 1000 MG/100 ML VIAL (NON FORMULARY) IVPB PRN (16:11)
[2017-10-12] MEDS ORDERED: HYDROmorphone *PCA* 10MG/50ML DISP.SYRIN PCA ONE (16:23)
[2017-10-12 16:27] LABS: BASO % 0.1 % (0-2.0); HEMATOCRIT 37.8 % (35.4-49); LYMPH % 4.7 % (8-40); MCH 31.2 pg (25.7-33.7); MCHC 34.3 g/dl (32.0-35.9); MEAN CELL VOLUME 90.8 fl (80-96); MEAN PLT VOLUME 8.6 fl (7.5-11.1); MONO % 8.7 % (3.8-10.2); NEUT % 86.5 % (42.8-82.8); PLATELET COUNT 169 K/MM3 (134-434); RBC 4.17 M/mm3 (4.00-5.60); RDW 13.3 % (11.9-15.9); WHITE BLOOD COUNT 14.4 K/mm3 (4.0-10.0)
[2017-10-12] MEDS: HYDROmorphone *PCA* 10MG/50ML DISP.SYRIN PCA SCH (16:30)
--- NOTE | 2017-10-12 16:35 | PN ---
Progress Note (short form) - Note Progress Note: Subjective: The patient was seen and examined at the bedside, he is going for surgery tomorrow Current Medications Generic Name Dose Route Start Last Admin Trade Name Freq PRN Reason Stop Dose Admin Acetaminophen 1,000 mg 10/12/17 16:11 Ofirmev Injection - IVPB Q6H PRN FEVER Amlodipine Besylate 5 mg 10/13/17 10:00 Norvasc - PO DAILY PETER Diphenhydramine HCl 12.5 mg 10/12/17 15:38 Benadryl Injection - IVPUSH ONCE PRN FOR ITCHING Hydrochlorothiazide 12.5 mg 10/13/17 10:00 Hctz - PO DAILY PETER Hydromorphone HCl 10 mg 10/12/17 16:00 10/12/17 16:30 Dilaudid Operating Room Aide - GIS ANALYST 10/19/17 15:59 10 mg GIS ANALYST PETER Administration Protocol Sodium Chloride 1,000 mls @ 100 mls/hr 10/12/17 16:11 10/13/17 02:12 Normal Saline - IV 100 mls/hr ASDIR PETER Administration Piperacillin Sod/Tazobactam 100 mls @ 200 mls/hr 10/12/17 18:00 10/13/17 01: 54 Sod 4.5 gm/ Dextrose IVPB 200 mls/hr Q8H-IV PETER Administration Protocol Insulin Aspart 1 vial 10/12/17 16:30 10/13/17 06:15 Novolog Vial Sliding Scale - SQ Not Given ACHS PETER Protocol Lisinopril 20 mg 10/13/17 10:00 Prinivil PO DAILY [facility]ER Ondansetron HCl 4 mg 10/12/17 15:38 Zofran Injection IVPUSH Q4H PRN NAUSEA AND/OR VOMITING Objective: Vital Signs Period Temp Pulse Resp BP Sys/Cooley Pulse Ox Last 24 Hr 98.4 F-99.9 F 80-96 16-20 109-134/6-70 94-96 Physical Exam: General: NAD, A&Ox3 Lungs: CTA bilaterally Heart: RRR, S1S2 Abd: Soft, diffuse abdominal tenderness Ext: Warm, well-perfused CBCD WBC 14.4 K/mm3 (4.0-10.0) H 10/12/17 16:00 RBC 4.17 M/mm3 (4.00-5.60) 10/12/17 16:00 Hgb 13.0 GM/dL (11.7-16.9) 10/12/17 16:00 Hct 37.8 % (35.4-49) 10/12/17 16:00 MCV 90.8 fl (80-96) 10/12/17 16:00 MCHC 34.3 g/dl (32.0-35.9) 10/12/17 16:00 RDW 13.3 % (11.9-15.9) 10/12/17 16:00 Plt Count 169 K/MM3 (134-434) 10/12/17 16:00 MPV 8.6 fl (7.5-11.1) 10/12/17 16:00 CMP Sodium 140 mmol/L (136-145) 10/12/17 16:00 Potassium 3.7 mmol/L (3.5-5.1) 10/12/17 16:00 Chloride 104 mmol/L (98-107) 10/12/17 16:00 Carbon Dioxide 24 mmol/L (21-32) 10/12/17 16:00 Anion Gap 12 (8-16) 10/12/17 16:00 BUN 18 mg/dL (7-18) 10/12/17 16:00 Creatinine 0.6 mg/dL (0.7-1.3) L 10/12/17 16:00 Creat Clearance w eGFR > 60 (>60) 10/12/17 16:00 Random Glucose 241 mg/dL (74-106) H 10/12/17 16:00 Calcium 7.4 mg/dL (8.5-10.1) L 10/12/17 16:00 Total Bilirubin 0.9 mg/dL (0.2-1.0) 10/12/17 16:00 AST 57 U/L (15-37) H D 10/12/17 16:00 ALT 38 U/L (12-78) D 10/12/17 16:00 Alkaline Phosphatase 88 U/L (45-117) 10/12/17 16:00 Total Protein 5.0 g/dl (6.4-8.2) L 10/12/17 16:00 Albumin 2.0 g/dl (3.4-5.0) L 10/12/17 16:00 CARDIAC ENZYMES Creatine Kinase 113 IU/L (39-308) 10/10/17 00:30 Troponin I < 0.02 ng/ml (0.00-0.05) 10/12/17 16:00 Assessment: This is a 71 year old with PMHx of HTN, NIDDM, who presented to the ED with abdominal pain and vomiting. Plan: 1) Sepsis 2/2 acute gangrenous cholecystitis - For lap sarita today - Pain management - Continue Zosyn - Appreciate surgery consult - Appreciate ID consult 2) HTN - Home medications 3) DM - BGM ACHS - ISS ACHS 4) F/E/N: - IV fluids - NPO 5) Prophylaxis: - DVT prophylaxis per surgery 6) Dispo: - Requires continued inpatient care CODE STATUS: FULL CODE Visit type - Emergency Visit Emergency Visit: Yes ED Registration Date: 10/10/17 Care time: The patient presented to the Emergency Department on the above date and was hospitalized for further evaluation of their emergent condition. - New Patient This patient is new to me today: Yes Date on this admission: 10/12/17 - Critical Care Critical Care patient: No
[2017-10-12 16:54] LABS: ANION GAP 12 (8-16); BILIRUBIN,TOTAL 0.9 mg/dL (0.2-1.0); BLOOD UREA NITROGEN 18 mg/dL (7-18); CALCIUM 7.4 mg/dL (8.5-10.1); CHLORIDE 104 mmol/L (98-107); CO2 24 mmol/L (21-32); CREATININE 0.6 mg/dL (0.7-1.3); GLUCOSE,RANDOM 241 mg/dL (74-106); POTASSIUM 3.7 mmol/L (3.5-5.1); SGOT/AST 57 U/L (15-37); SGPT/ALT 38 U/L (12-78); SODIUM 140 mmol/L (136-145)
[2017-10-12 16:56] LABS: ALK PHOS 88 U/L (45-117)
[2017-10-12] MEDS: SODIUM CHLORIDE 1,000 ML IV SCH ×2 (19:04→19:05)
--- NOTE | 2017-10-12 20:44 | OP ---
DATE OF OPERATION: 10/12/2017 PREOPERATIVE DIAGNOSIS: Acute cholecystitis. POSTOPERATIVE DIAGNOSIS: Acute gangrenous cholecystitis. PROCEDURE: Laparoscopic converted to open partial cholecystectomy. ATTENDING SURGEON: Luís Webb MD ASSISTANT AUDITOR: JONNY Porter ANESTHESIOLOGIST: Tamiko De La Torre MD ANESTHESIA: General. SPECIMEN REMOVED: Gallbladder, partial and a stone. ESTIMATED BLOOD LOSS: 100 mL DRAINS PLACED: NG tube as well as: 1. A round, size 10 drain to bulb suction in the gallbladder neck. 2. A flat, size 10 drain in liver fossa. INTRAVENOUS FLUID REPLACED: Crystalloid 1800 mL. X-RAY: X-ray postoperatively completed per protocol, showed only drains present in the abdomen. BRIEF FINDINGS: Patient had a grossly gangrenous gallbladder with areas of purulent peel and full-thickness necrosis of the gallbladder wall. The gallbladder was explored, opened, and stones were removed from the neck. The infundibulum was left open with drains in the neck, and the stones that were cleared were sent along with the partial gallbladder specimen for final pathologic diagnosis. Flat drain was left in the hepatic fossa. Hemostasis was complete, and counts were correct. INDICATION: Patient is a 71-year-old male, diabetic, hypertensive, with 2 days of abdominal pain to the right upper quadrant. He had an MRCP that confirmed the absence of choledocholithiasis, without any intraductal dilatation of the hepatic drainage. He had apparent acute cholecystitis changes with thickening of the gallbladder wall as well as stones impacted at the neck. He was counseled regarding risks, benefits, and alternatives to laparoscopic, possible open cholecystectomy, signed informed consent with his family in his [place] language, signed informed consent, and was taken for the procedure. DESCRIPTION OF PROCEDURE: Patient was brought to the operating room. He was placed in supine position on the operating table. Lower extremities had SCDs placed to compression. He was induced with general anesthesia, endotracheally intubated. The anterior abdominal wall was clipped, prepped, and draped in standard surgical fashion. He received intravenous antibiotics on the floor during his hospital stay prior to incision. He received his last dose at 9 a.m. this morning. After a formal timeout identifying the operative procedure and with all parties in agreement, we began first with umbilical Veress placement. After a small torres incision, a Veress needle was inserted into the abdomen, and then, a pneumoperitoneum was established to a pressure of 15 mmHg. At which point, once established, a 5-mm trocar was then inserted through the same hole after the Veress needle. Had a drop test. It was positive. We proceeded then with retention of the pneumoperitoneum through the 5-mm trocar after Visiport entry. We began to inspect the gallbladder. It appeared to have omentum caked over its dome. We established additional operative sites, one at the subxiphoid position, a size 11 mm, and two in the right abdomen. We proceeded then to retract the gallbladder. It appeared grossly inflamed, thickened wall. When the patient was positioned, it was clear that there were patches of necrosis in the gallbladder wall that were apparent. A thick peel of purulent material was also noted along the liver's border at the omentum. It was debrided and removed from the patient's abdomen. We proceeded then with an attempted dissection of the gallbladder in a dome-down technique. The gallbladder's dome was then decompressed of bile. Approximately 60-80 mL of what appeared to be dark-green bile was aspirated under direct visualization using the decompression needle. We proceeded then with a dome-down approach after the gallbladder was retracted. There appeared to be no progress and clear, full-thickness necrosis with single entry into the gallbladder itself. The decision was made at this point to convert given the fact that we were unable to progress with removing the gallbladder from its intrahepatic position, as well as identify safely the cystic structures. We proceeded then with a subcostal incision which was scribed from the skin after localizing it using the camera's light. The trocars were removed, the pneumoperitoneum relieved, and we proceeded then with a subcostal incision on the right side. This was opened with a 10-blade scalpel after counts were correct from the laparoscopic procedure. It was carried through with Bovie cautery through the subcutaneous fat to the anterior sheath of the rectus and the external oblique. We entered the fascia and elevated it. A muscle-cauterizing technique was used to enter the peritoneum. The peritoneum was elevated and then opened using a Metzenbaum scissor. With a finger protecting the intraabdominal viscera, the additional extensions were made both laterally and medially to open a window into the subhepatic space. We proceeded then to pack off the hepatic flexure from surgical view. We also proceeded with placement of a nasogastric tube to decompress the stomach. It was also packed out of the field. We then proceeded with identification of the dome on our previous planes of dissection. The gallbladder was elevated from the hepatic bed. With notable punctate bleeding at the hepatic bed, we placed additional hemostatic agents including Surgicel at the bed, and the area was packed. The liver was then packed into the center of the field, and decision was made to completely elevate the liver from the hepatic bed, leaving its only attachment to cystic structures near the infundibulum. The decision was made then to open the gallbladder. The gallbladder was opened at the dome. The remainder of the stones were suctioned from the neck as well as a single stone which was retrieved, appeared to be impacted at the base. It was sent along with the pathologic specimen. We proceeded then with the plan for a partial cholecystectomy. A safe ring was taken along, leaving only a round rim of infundibulum and neck of the gallbladder. In this case, we were assured that there were no stones that were impacted at the neck. The gallbladder was left open as it could not be accommodated in a stapler. A round drain was placed into the gallbladder's neck, and an additional flat drain was placed into the hepatic bed. Omentum was then used to ablate the space, and the drains were secured at the skin after they were guided in under direct visualization through the previous trocar sites, 5 mm in the right lateral abdomen, the lateral most being the number 1 drain and the medial most one being the number 2 drain. We then proceeded with closure of the peritoneum and fascia. Prior to this, the gallbladder was taken. A rim of the necrotic wall including the dome was sent for final pathologic diagnosis. It was taken with Bovie cautery, and the cystic artery itself was tied along the medial aspect using 0 Vicryl. With hemostasis obtained, all the packs including the Surgicel were removed from the abdomen, and the site was irrigated. We then proceeded with the closure of the abdomen. The abdomen was closed in layers. First, the peritoneum was closed with 0 Vicryl, followed by the anterior fascia of the rectus, and the external oblique was also approximated then with number 1 looped PDS, starting from the poles and tied in the middle. When complete, the site was irrigated. The skin was left open. Interspersed between widely-spaced cornelio was 1/2-inch Iodoform packing. The skin was cleaned. Sterile dressings were placed. The drain sponges were secured using Tegaderms, and a final remaining trocar site at the umbilicus was closed with a single staple. The skin was cleaned. Sterile dressings were placed. The patient was awoken from general anesthesia, having tolerated the procedure well. He was stable throughout. The decision was made to give the patient a HISTOLOGY MANAGER for postoperative pain control. He was returned to Recovery in stable condition. All counts were correct. According to procedure, an x-ray was performed, showing no remaining instruments. The counts were correct. MD SHILPA [id number]
[2017-10-13] MEDS ORDERED: DEXTROSE 5%-WATER 100 ML IVPB ONE ×3 (01:49→17:41)
[2017-10-13] MEDS ORDERED: PIPERACILLIN/TAZOBACTAM 4.5 GM VIAL IVPB ONE ×3 (01:49→17:41)
[2017-10-13] MEDS: PIPERACILLIN/TAZOB 4.5 GM 4.5 GM in DEXTROSE 5%-WATER 100 ML IVPB SCH ×3 (01:54→17:57)
[2017-10-13] MEDS: SODIUM CHLORIDE 1,000 ML IV SCH ×2 (02:12→15:55)
[2017-10-13] MEDS: INSULIN SLIDING SCALE (NOVOLOG) 1 VIAL SQ SCH ×4 (06:15→21:08)
[2017-10-13 07:30] LABS: BASO % 0.2 % (0-2.0); HEMATOCRIT 37.6 % (35.4-49); HEMOGLOBIN 12.7 GM/dL (11.7-16.9); LYMPH % 8.5 % (8-40); MCH 30.5 pg (25.7-33.7); MCHC 33.9 g/dl (32.0-35.9); MEAN CELL VOLUME 90.1 fl (80-96); MONO % 9.9 % (3.8-10.2); NEUT % 81.4 % (42.8-82.8); PLATELET COUNT 179 K/MM3 (134-434); RBC 4.18 M/mm3 (4.00-5.60); RDW 13.5 % (11.9-15.9); WHITE BLOOD COUNT 13.8 K/mm3 (4.0-10.0)
[2017-10-13 07:54] LABS: ANION GAP 12 (8-16); BLOOD UREA NITROGEN 16 mg/dL (7-18); CALCIUM 7.8 mg/dL (8.5-10.1); CHLORIDE 103 mmol/L (98-107); CO2 27 mmol/L (21-32); CREATININE 0.6 mg/dL (0.7-1.3); GLUCOSE,RANDOM 212 mg/dL (74-106); POTASSIUM 3.6 mmol/L (3.5-5.1); SGOT/AST 47 U/L (15-37); SGPT/ALT 38 U/L (12-78); SODIUM 142 mmol/L (136-145)
[2017-10-13 07:57] LABS: ALK PHOS 81 U/L (45-117); BILIRUBIN,TOTAL 0.8 mg/dL (0.2-1.0); TOT PROT 5.1 g/dl (6.4-8.2)
--- NOTE | 2017-10-13 09:50 | PN ---
Progress Note, Physician Chief Complaint: abdominal pain History of Present Illness: 71yo male PMH DM presents with left lower quadrant abdominal pain 1 day. Patient has a history significant for hypertension, hyperlipidemia and type 2 diabetes. He has been lethargic, but hemodynamically stable. - Current Medication List Current Medications: Active Medications Amlodipine Besylate (Norvasc -) 5 mg PO DAILY [facility] Diphenhydramine HCl (Benadryl Injection -) 12.5 mg IVPUSH ONCE PRN PRN Reason: FOR ITCHING Hydrochlorothiazide (Hctz -) 12.5 mg PO DAILY [facility] Hydromorphone HCl (Dilaudid Registered Radiographer -) 10 mg PLANNING ANALYST PLANNING ANALYST PETER; Protocol Stop: 10/19/17 15:59 Last Admin: 10/12/17 16:30 Dose: 10 mg Sodium Chloride (Normal Saline -) 1,000 mls @ 100 mls/hr IV ASDIR PETER Last Admin: 10/13/17 02:12 Dose: 100 mls/hr Piperacillin Sod/Tazobactam (Sod 4.5 gm/ Dextrose) 100 mls @ 200 mls/hr IVPB Q8H-IV [facility]ER; Protocol Last Admin: 10/13/17 01:54 Dose: 200 mls/hr Insulin Aspart (Novolog Vial Sliding Scale -) 1 vial SQ ACHS [facility]ER; Protocol Last Admin: 10/13/17 06:15 Dose: Not Given Lisinopril (Prinivil) 20 mg PO DAILY [facility] Ondansetron HCl (Zofran Injection) 4 mg IVPUSH Q4H PRN PRN Reason: NAUSEA AND/OR VOMITING - Objective Vital Signs: Vital Signs Temperature 98.8 F 10/13/17 05:37 Pulse Rate 80 10/13/17 07:14 Respiratory Rate 18 10/13/17 07:14 Blood Pressure 134/70 10/13/17 07:14 O2 Sat by Pulse Oximetry (%) 96 10/12/17 22:00 Vital Signs Period Temp Pulse Resp BP Sys/Cooley Pulse Ox Last 24 Hr 98.4 F-99.9 F 80-96 16-20 109-134/6-70 94-96 Constitutional: Yes: Well Nourished, No Distress, Calm Eyes: Yes: Conjunctiva Clear, EOM Intact HENT: Yes: Atraumatic, Normocephalic Neck: Yes: Supple, Trachea Midline Cardiovascular: Yes: Regular Rate and Rhythm, S1, S2 Respiratory: Yes: Regular, CTA Bilaterally Gastrointestinal: Yes: Normal Bowel Sounds, Soft, Tenderness (incisonal). No: Distention Genitourinary: No: CVA Tenderness - Left, CVA Tenderness - Right Musculoskeletal: No: Muscle Pain, Muscle Weakness Extremities: No: Cool, Cyanosis Edema: No Peripheral Pulses WNL: Yes Peripheral Pulses: Left Radial: 2+, Right Radial: 2+, Left Doralis Pedis: 2+, Right Dorsalis Pedis: 2+ Integumentary: Yes: Incision. No: Jaundice, Rash Wound/Incision: Yes: Clean/Dry, Steve Intact, Dressing Dry and Intact, Unapproximated Labs: CBC, BMP 10/13/17 06:00 10/13/17 06:00 Problem List - Problems (1) Acute gangrenous cholecystitis Assessment/Plan: 71yo male MMP including DM Acute cholecystitis with the posibility of choledocholithiasis, CBD 1.14, gallbladder polyp POD#1 s/p Open partial cholecystectomy for gangrenous cholecystitis. Diet as tolerated Continued IV antibiotics Daily wound care starting 10/13 Strict I&O from Drains OOB and ambulate encourge IS Physical therapy evaluation will follow Code(s): K81.0 - ACUTE CHOLECYSTITIS (2) Acute cholecystitis Assessment/Plan: Discussed with patient risks, benefits and alternatives of laparoscopic possible open ectomy, including but not limited to bleeding, infection, injury to adjacent structures, leak or injury, intraabdominal abscess, incisional hernia, need for further procedures, ; alternatives include antibiotics, delayed or no surgery - risks of this include failure of nonoperative therapy, perforation, sepsis, recurrence, . Patient desires to proceed with operation - will take to OR for above. Informed consent signed for same. Code(s): K81.0 - ACUTE CHOLECYSTITIS (3) Diabetes mellitus due to underlying condition Code(s): E08.9 - DIABETES DUE TO UNDERLYING CONDITION W/O COMPLICATIONS (4) Hyperglycemia Code(s): R73.9 - HYPERGLYCEMIA, UNSPECIFIED
[2017-10-13] MEDS: LISINOPRIL 20 MG TABLET (FP) PO SCH ×2 (10:17→12:06)
[2017-10-13] MEDS: amLODIPine BESYLATE 5 MG TABLET (FP) PO SCH ×2 (10:17→12:06)
[2017-10-13] MEDS: HYDROCHLOROTHIAZIDE 12.5 MG CAPSULE (FP) PO SCH ×2 (10:17→12:06)
--- NOTE | 2017-10-13 10:25 | PN ---
Progress Note (short form) - Note Progress Note: Anesthesia postop note 71 y/o M s/p GA for laparoscopic converted to open cholecystectomy POD#1, vss, aaox3, dilaudid drug enforcement agent for pain management, encouraged to use the drug enforcement agent. no anesthesia complications.
--- NOTE | 2017-10-13 13:01 | PN ---
Progress Note, Physician History of Present Illness: still with pain post op pain - Current Medication List Current Medications: Active Medications Amlodipine Besylate (Norvasc -) 5 mg PO DAILY [facility] Last Admin: 10/13/17 12:06 Dose: 5 mg Diphenhydramine HCl (Benadryl Injection -) 12.5 mg IVPUSH ONCE PRN PRN Reason: FOR ITCHING Hydrochlorothiazide (Hctz -) 12.5 mg PO DAILY [facility] Last Admin: 10/13/17 12:06 Dose: 12.5 mg Hydromorphone HCl (Dilaudid Gas Burner Operator -) 10 mg LUSTER REPAIRER LUSTER REPAIRER PETER; Protocol Stop: 10/19/17 15:59 Last Admin: 10/12/17 16:30 Dose: 10 mg Sodium Chloride (Normal Saline -) 1,000 mls @ 100 mls/hr IV ASDIR PETER Last Admin: 10/13/17 02:12 Dose: 100 mls/hr Piperacillin Sod/Tazobactam (Sod 4.5 gm/ Dextrose) 100 mls @ 200 mls/hr IVPB Q8H-IV PETER; Protocol Last Admin: 10/13/17 12:05 Dose: 200 mls/hr Insulin Aspart (Novolog Vial Sliding Scale -) 1 vial SQ ACHS PETER; Protocol Last Admin: 10/13/17 06:15 Dose: Not Given Lisinopril (Prinivil) 20 mg PO DAILY [facility] Last Admin: 10/13/17 12:06 Dose: 20 mg Ondansetron HCl (Zofran Injection) 4 mg IVPUSH Q4H PRN PRN Reason: NAUSEA AND/OR VOMITING - Objective Vital Signs: Vital Signs Temperature 98.8 F 10/13/17 05:37 Pulse Rate 80 10/13/17 07:14 Respiratory Rate 18 10/13/17 07:14 Blood Pressure 134/70 10/13/17 07:14 O2 Sat by Pulse Oximetry (%) 96 10/12/17 22:00 Constitutional: Yes: No Distress, Calm Cardiovascular: Yes: Regular Rate and Rhythm Respiratory: Yes: Regular, CTA Bilaterally Gastrointestinal: Yes: Soft, Tenderness Musculoskeletal: Yes: WNL Extremities: Yes: WNL Neurological: Yes: Alert, Oriented Psychiatric: Yes: Alert Labs: CBC, BMP 10/13/17 06:00 10/13/17 06:00 Assessment/Plan Problem List - Problems (1) Acute gangrenous cholecystitis Code(s): K81.0 - ACUTE CHOLECYSTITIS (2) Acute cholecystitis Code(s): K81.0 - ACUTE CHOLECYSTITIS (3) Diabetes mellitus due to underlying condition Code(s): E08.9 - DIABETES DUE TO UNDERLYING CONDITION W/O COMPLICATIONS (4) Hyperglycemia Code(s): R73.9 - HYPERGLYCEMIA, UNSPECIFIED plan continue current mgmt continue abx hydration rest as per surgery
[2017-10-13] MEDS: ONDANSETRON 4 MG/2 ML VIAL IVPUSH PRN (14:07)
[2017-10-13] MEDS: ACETAMINOPHEN 325 MG TABLET (FP) PO PRN ×2 (14:07→21:07)
--- NOTE | 2017-10-13 14:44 | PN ---
Progress Note (short form) - Note Progress Note: Subjective: The patient was seen and examined at the bedside, he states he was thirsty and would like to drink NGT in place Current Medications Generic Name Dose Route Start Last Admin Trade Name Freq PRN Reason Stop Dose Admin Acetaminophen 650 mg 10/13/17 13:35 Tylenol - PO Q6H PRN FEVER Amlodipine Besylate 5 mg 10/13/17 10:00 10/13/17 12:06 Norvasc - PO 5 mg DAILY [facility] Administration Diphenhydramine HCl 12.5 mg 10/12/17 15:38 Benadryl Injection - IVPUSH ONCE PRN FOR ITCHING Hydrochlorothiazide 12.5 mg 10/13/17 10:00 10/13/17 12:06 Hctz - PO 12.5 mg DAILY [facility]ER Administration Hydromorphone HCl 10 mg 10/12/17 16:00 10/12/17 16:30 Dilaudid Corporate Attorney - FLEXOGRAPHIC PRINTING PRESS OPERATOR 10/19/17 15:59 10 mg FLEXOGRAPHIC PRINTING PRESS OPERATOR PETER Administration Protocol Sodium Chloride 1,000 mls @ 100 mls/hr 10/12/17 16:11 10/13/17 02:12 Normal Saline - IV 100 mls/hr ASDIR PETER Administration Piperacillin Sod/Tazobactam 100 mls @ 200 mls/hr 10/12/17 18:00 10/13/17 12: 05 Sod 4.5 gm/ Dextrose IVPB 200 mls/hr Q8H-IV PETER Administration Protocol Insulin Aspart 1 vial 10/12/17 16:30 10/13/17 13:10 Novolog Vial Sliding Scale - SQ 8 units ACHS PETER Administration Protocol Lisinopril 20 mg 10/13/17 10:00 10/13/17 12:06 Prinivil PO 20 mg DAILY [facility]ER Administration Ondansetron HCl 4 mg 10/12/17 15:38 10/13/17 14:07 Zofran Injection IVPUSH 4 mg Q4H PRN Administration NAUSEA AND/OR VOMITING Objective: Vital Signs Period Temp Pulse Resp BP Sys/Cooley Pulse Ox Last 24 Hr 98.4 F-100.3 F 80-96 16-20 109-139/6-76 94-96 Physical Exam: General: NAD HEENT: Right nare NGT to LWS Lungs: CTA bilaterally Heart: RRR, S1S2 Abd: Dressings c/d/i. JPx2 with bloody drainage. Absent bowel sounds CBCD WBC 13.8 K/mm3 (4.0-10.0) H 10/13/17 06:00 RBC 4.18 M/mm3 (4.00-5.60) 10/13/17 06:00 Hgb 12.7 GM/dL (11.7-16.9) 10/13/17 06:00 Hct 37.6 % (35.4-49) 10/13/17 06:00 MCV 90.1 fl (80-96) 10/13/17 06:00 MCHC 33.9 g/dl (32.0-35.9) 10/13/17 06:00 RDW 13.5 % (11.9-15.9) 10/13/17 06:00 Plt Count 179 K/MM3 (134-434) 10/13/17 06:00 MPV 9.0 fl (7.5-11.1) 10/13/17 06:00 CMP Sodium 142 mmol/L (136-145) 10/13/17 06:00 Potassium 3.6 mmol/L (3.5-5.1) 10/13/17 06:00 Chloride 103 mmol/L (98-107) 10/13/17 06:00 Carbon Dioxide 27 mmol/L (21-32) 10/13/17 06:00 Anion Gap 12 (8-16) 10/13/17 06:00 BUN 16 mg/dL (7-18) 10/13/17 06:00 Creatinine 0.6 mg/dL (0.7-1.3) L 10/13/17 06:00 Creat Clearance w eGFR > 60 (>60) 10/13/17 06:00 Random Glucose 212 mg/dL (74-106) H 10/13/17 06:00 Calcium 7.8 mg/dL (8.5-10.1) L 10/13/17 06:00 Total Bilirubin 0.8 mg/dL (0.2-1.0) 10/13/17 06:00 AST 47 U/L (15-37) H 10/13/17 06:00 ALT 38 U/L (12-78) 10/13/17 06:00 Alkaline Phosphatase 81 U/L (45-117) 10/13/17 06:00 Total Protein 5.1 g/dl (6.4-8.2) L 10/13/17 06:00 Albumin 2.0 g/dl (3.4-5.0) L 10/13/17 06:00 CARDIAC ENZYMES Creatine Kinase 113 IU/L (39-308) 10/10/17 00:30 Troponin I < 0.02 ng/ml (0.00-0.05) 10/12/17 16:00 Microbiology 10/10/17 12:33 Blood - Peripheral Venous Blood Culture - Preliminary NO GROWTH OBTAINED AFTER 72 HOURS, INCUBATION TO CONTINUE FOR 2 DAYS. 10/10/17 12:35 Blood - Peripheral Venous Blood Culture - Preliminary NO GROWTH OBTAINED AFTER 72 HOURS, INCUBATION TO CONTINUE FOR 2 DAYS. 10/10/17 07:15 Urine - Urine Clean Catch Urine Culture - Final NO GROWTH OBTAINED Assessment: This is a 71 year old with PMHx of HTN, NIDDM, who presented to the ED with abdominal pain and vomiting. Plan: 1) Sepsis 2/2 acute gangrenous cholecystitis - POD#1 open partial cholecystectomy, grossly gangrenous gallbladder with necrosis - NGT to LWS: ~600cc output overnight per RN - MADELAINE drains in place - Dilaudid hired hand per anesthesia - Continue Zosyn - Appreciate surgery consult - Appreciate ID consult 2) HTN - Resume oral antihypertensives once tolerating diet 3) DM - BGM ACHS - ISS ACHS 4) F/E/N: - IV fluids - NPO 5) Prophylaxis: - DVT prophylaxis per surgery 6) Dispo: - Requires continued inpatient care CODE STATUS: FULL CODE Visit type - Emergency Visit Emergency Visit: Yes ED Registration Date: 10/10/17 Care time: The patient presented to the Emergency Department on the above date and was hospitalized for further evaluation of their emergent condition. - New Patient This patient is new to me today: Yes Date on this admission: 10/13/17 - Critical Care Critical Care patient: No
--- NOTE | 2017-10-13 15:29 | EKG ---
Test Reason : Blood Pressure : / mmHG Vent. Rate : 086 BPM Atrial Rate : 086 BPM P-R Int : 186 ms QRS Dur : 100 ms QT Int : 372 ms P-R-T Axes : 051 013 007 degrees QTc Int : 445 ms SINUS RHYTHM WITH PREMATURE ATRIAL COMPLEXES OTHERWISE NORMAL ECG WHEN COMPARED WITH ECG OF 10-OCT-2017 01:30, PREMATURE ATRIAL COMPLEXES ARE NOW PRESENT T WAVE INVERSION NOW EVIDENT IN INFERIOR LEADS Confirmed by Moise Carias MD ([id number]) on 10/13/2017 3:29:22 PM Referred By: CARMELO HERRERA Confirmed By:Moise Carias MD
[2017-10-13] MEDS: HYDROmorphone *PCA* 10MG/50ML DISP.SYRIN PCA SCH (17:56)
--- NOTE | 2017-10-13 22:06 | PN ---
GI Progress Note Subjective: GI NOte : I am already familiar with Moisés as I did his GI consultation in coverage of Dr Miranda. At that time I discussed the possibility of ERCP with Moisés and his son so he is in a position to teetee an informed consent should he need this. Dr. Webb did ask me to review the case with the issue as to whether an ERCP is indicated. I have reviewed the operative record and appreciate the surgical complexities. Unfortunately fresh clips preclude an MRCP. Moisés is still groggy but denies severe pain - Objective Vital Signs: Vital Signs Temperature 100.3 F H 10/13/17 13:14 Pulse Rate 87 10/13/17 13:14 Respiratory Rate 20 10/13/17 10:00 Blood Pressure 139/76 10/13/17 13:14 O2 Sat by Pulse Oximetry (%) 95 10/13/17 09:00 Laboratory Tests 10/13/17 10/13/17 06:00 06:00 WBC 13.8 H Hgb 12.7 Total Bilirubin 0.8 AST 47 H ALT 38 Alkaline Phosphatase 81 Constitutional: Calm ...Auscultate: Yes: No Bowel Sounds ...Palpate: Yes: Other (surgical bandages and drains in place) Labs: CBC, BMP 10/13/17 06:00 10/13/17 06:00 Problem List - Problems (1) Acute cholecystitis Assessment/Plan: Postop following cholecystectomy today. Will order LFTs if not already done. If elevated would obtain Hida scan to look for CBD obstruction as a stone may have entered the CBD and to exclude a bile leak in which case a biliary stent would be indicated. Will follow peripherally as Dr. Miranda is the primary GI for this case. Code(s): K81.0 - ACUTE CHOLECYSTITIS (2) History of inguinal hernia repair Code(s): Z98.890 - OTHER SPECIFIED POSTPROCEDURAL STATES; Z87.19 - PERSONAL HISTORY OF OTHER DISEASES OF THE DIGESTIVE SYSTEM (3) Hypertension Code(s): I10 - ESSENTIAL (PRIMARY) HYPERTENSION (4) Acute gangrenous cholecystitis Code(s): K81.0 - ACUTE CHOLECYSTITIS
[2017-10-14] MEDS ORDERED: DEXTROSE 5%-WATER 100 ML IVPB ONE ×3 (02:34→16:44)
[2017-10-14] MEDS ORDERED: PIPERACILLIN/TAZOBACTAM 4.5 GM VIAL IVPB ONE ×3 (02:34→16:44)
[2017-10-14] MEDS: PIPERACILLIN/TAZOB 4.5 GM 4.5 GM in DEXTROSE 5%-WATER 100 ML IVPB SCH ×3 (02:48→17:34)
[2017-10-14] MEDS: SODIUM CHLORIDE 1,000 ML IV SCH (02:50)
[2017-10-14] MEDS: INSULIN SLIDING SCALE (NOVOLOG) 1 VIAL SQ SCH ×4 (06:40→21:31)
[2017-10-14 08:54] LABS: BASO % 0.2 % (0-2.0); EOS % 0.3 % (0-4.5); HEMATOCRIT 37.1 % (35.4-49); HEMOGLOBIN 12.5 GM/dL (11.7-16.9); LYMPH % 13.5 % (8-40); MCH 30.2 pg (25.7-33.7); MCHC 33.6 g/dl (32.0-35.9); MEAN CELL VOLUME 89.8 fl (80-96); MEAN PLT VOLUME 8.4 fl (7.5-11.1); MONO % 11.8 % (3.8-10.2); NEUT % 74.2 % (42.8-82.8); PLATELET COUNT 207 K/MM3 (134-434); RBC 4.13 M/mm3 (4.00-5.60); RDW 13.2 % (11.9-15.9); WHITE BLOOD COUNT 13.1 K/mm3 (4.0-10.0)
--- NOTE | 2017-10-14 09:07 | PN ---
Progress Note (short form) - Note Progress Note: ANESTHESIOLOGY POST-OP CHECK 71M s/p laparoscopic sleeve gastrectomy under general anesthesia, POD #2. No acute complaints. Pain 8/10 and tolerable, denies N/V Vital Signs Temperature 99.1 F 10/14/17 05:49 Pulse Rate 79 10/14/17 05:49 Respiratory Rate 20 10/14/17 05:49 Blood Pressure 134/67 10/14/17 05:49 O2 Sat by Pulse Oximetry (%) 96 10/13/17 22:00 Active Medications Acetaminophen (Tylenol -) 650 mg PO Q6H PRN PRN Reason: FEVER Last Admin: 10/13/17 21:07 Dose: 650 mg Amlodipine Besylate (Norvasc -) 5 mg PO DAILY [facility] Last Admin: 10/13/17 12:06 Dose: 5 mg Diphenhydramine HCl (Benadryl Injection -) 12.5 mg IVPUSH ONCE PRN PRN Reason: FOR ITCHING Hydrochlorothiazide (Hctz -) 12.5 mg PO DAILY [facility] Last Admin: 10/13/17 12:06 Dose: 12.5 mg Hydromorphone HCl (Dilaudid Transmission Builder -) 10 mg BLOW UP OPERATOR BLOW UP OPERATOR PETER; Protocol Stop: 10/19/17 15:59 Last Admin: 10/13/17 17:56 Dose: Not Given Sodium Chloride (Normal Saline -) 1,000 mls @ 100 mls/hr IV ASDIR PETER Last Admin: 10/14/17 02:50 Dose: 100 mls/hr Piperacillin Sod/Tazobactam (Sod 4.5 gm/ Dextrose) 100 mls @ 200 mls/hr IVPB Q8H-IV PETER; Protocol Last Admin: 10/14/17 02:48 Dose: 200 mls/hr Insulin Aspart (Novolog Vial Sliding Scale -) 1 vial SQ ACHS PETER; Protocol Last Admin: 10/14/17 06:40 Dose: 4 units Lisinopril (Prinivil) 20 mg PO DAILY [facility] Last Admin: 10/13/17 12:06 Dose: 20 mg Ondansetron HCl (Zofran Injection) 4 mg IVPUSH Q4H PRN PRN Reason: NAUSEA AND/OR VOMITING Last Admin: 10/13/17 14:07 Dose: 4 mg Gen: Awake, alert No apparent anesthesia complications. Pain controlled with BLOW UP OPERATOR - continue. Continue management as per primary team.
[2017-10-14 09:13] LABS: ANION GAP 8 MMOL/L (8-16); BILIRUBIN,DIRECT 0.3 mg/dL (0.0-0.2); BLOOD UREA NITROGEN 11 mg/dL (7-18); CHLORIDE 97 mmol/L (98-107); CO2 33 mmol/L (21-32); GLUCOSE,RANDOM 186 mg/dL (74-106); SODIUM 138 mmol/L (136-145)
[2017-10-14 09:17] LABS: ALK PHOS 96 U/L (45-117); BILIRUBIN,TOTAL 0.8 mg/dL (0.2-1.0); CREATININE 0.5 mg/dL (0.7-1.3); SGOT/AST 24 U/L (15-37); SGPT/ALT 31 U/L (12-78); TOT PROT 5.5 g/dl (6.4-8.2)
[2017-10-14] MEDS: amLODIPine BESYLATE 5 MG TABLET (FP) PO SCH (09:44)
[2017-10-14] MEDS: LISINOPRIL 20 MG TABLET (FP) PO SCH (09:44)
[2017-10-14] MEDS: HYDROCHLOROTHIAZIDE 12.5 MG CAPSULE (FP) PO SCH (09:45)
[2017-10-14 09:52] LABS: POTASSIUM 2.9 mmol/L (3.5-5.1)
--- NOTE | 2017-10-14 10:06 | PN ---
Progress Note, Physician Chief Complaint: abdominal pain History of Present Illness: 71yo male PMH DM presents with left lower quadrant abdominal pain 1 day. Patient has a history significant for hypertension, hyperlipidemia and type 2 diabetes. He has been lethargic, but hemodynamically stable. - Current Medication List Current Medications: Active Medications Acetaminophen (Tylenol -) 650 mg PO Q6H PRN PRN Reason: FEVER Last Admin: 10/13/17 21:07 Dose: 650 mg Amlodipine Besylate (Norvasc -) 5 mg PO DAILY [facility] Last Admin: 10/14/17 09:44 Dose: 5 mg Diphenhydramine HCl (Benadryl Injection -) 12.5 mg IVPUSH ONCE PRN PRN Reason: FOR ITCHING Hydrochlorothiazide (Hctz -) 12.5 mg PO DAILY [facility] Last Admin: 10/14/17 09:45 Dose: 12.5 mg Hydromorphone HCl (Dilaudid Oil Rag Washer -) 10 mg DIRECTOR OF PHYSICAL SECURITY DIRECTOR OF PHYSICAL SECURITY [facility]; Protocol Stop: 10/19/17 15:59 Last Admin: 10/13/17 17:56 Dose: Not Given Piperacillin Sod/Tazobactam (Sod 4.5 gm/ Dextrose) 100 mls @ 200 mls/hr IVPB Q8H-IV PETER; Protocol Last Admin: 10/14/17 09:45 Dose: 200 mls/hr Potassium Chloride (Potassium Chloride 10 Meq Premix Ivpb -) 10 meq in 100 mls @ 100 mls/hr IVPB Q60M PETER Stop: 10/14/17 13:14 Lactated Ringer's (Lactated Ringers Solution) 1,000 ml in 1,000 mls @ 125 mls/ hr IV ASDIR PETER Insulin Aspart (Novolog Vial Sliding Scale -) 1 vial SQ ACHS PETER; Protocol Last Admin: 10/14/17 06:40 Dose: 4 units Lisinopril (Prinivil) 20 mg PO DAILY [facility] Last Admin: 10/14/17 09:44 Dose: 20 mg Ondansetron HCl (Zofran Injection) 4 mg IVPUSH Q4H PRN PRN Reason: NAUSEA AND/OR VOMITING Last Admin: 10/13/17 14:07 Dose: 4 mg - Objective Vital Signs: Vital Signs Temperature 99.1 F 10/14/17 05:49 Pulse Rate 79 10/14/17 05:49 Respiratory Rate 20 10/14/17 05:49 Blood Pressure 134/67 10/14/17 05:49 O2 Sat by Pulse Oximetry (%) 96 10/13/17 22:00 Vital Signs Period Temp Pulse Resp BP Sys/Cooley Pulse Ox Last 24 Hr 98.7 F-100.3 F 79-87 20-20 130-139/67-80 96 Intake & Output 10/13/17 10/14/17 10/14/17 23:59 07:59 15:59 Intake Total 0 1200 Output Total 110 35 Balance -110 1165 Intake: IV 1100 Normal Saline - 1,000 ml 1100 @ 100 mls/hr IV ASDIR PETER Rx#:[id number] IVPB 100 Oral 0 Output: Drainage 110 35 MADELAINE Drain 1 30 15 MADELAINE Drain 2 80 20 Other: Voiding Method Toilet # Unmeasured Voids Void 6 Bowel Movement No Constitutional: Yes: Well Nourished, No Distress, Calm Eyes: Yes: Conjunctiva Clear, EOM Intact HENT: Yes: Atraumatic, Normocephalic Neck: Yes: Supple, Trachea Midline Cardiovascular: Yes: Regular Rate and Rhythm, S1, S2 Respiratory: Yes: Regular, CTA Bilaterally Gastrointestinal: Yes: Normal Bowel Sounds, Soft. No: Distention, Hernia, Palpable Mass, Tenderness, Epigastrium, Tenderness, Rebound ...Rectal Exam: Yes: Deferred Genitourinary: No: CVA Tenderness - Left, CVA Tenderness - Right Musculoskeletal: No: Muscle Pain, Muscle Weakness Extremities: No: Cool, Cyanosis Edema: No Peripheral Pulses WNL: Yes Peripheral Pulses: Left Radial: 2+, Right Radial: 2+, Left Doralis Pedis: 2+, Right Dorsalis Pedis: 2+ Integumentary: No: Jaundice, Rash, Skin Tear Wound/Incision: Yes: Clean/Dry, Well Approximated, Steve Intact Neurological: Yes: Alert, Oriented Psychiatric: Yes: Alert, Oriented Labs: CBC, BMP 10/14/17 08:15 10/14/17 08:15 Problem List - Problems (1) Acute gangrenous cholecystitis Assessment/Plan: 71yo male MMP including DM Acute cholecystitis with the posibility of choledocholithiasis, CBD 1.14, gallbladder polyp POD#2 s/p Open partial cholecystectomy for gangrenous cholecystitis. Diet as tolerated Continued IV antibiotics Daily wound care Strict I&O from Drains OOB and ambulate encourge IS Physical therapy evaluation will follow Code(s): K81.0 - ACUTE CHOLECYSTITIS (2) Acute cholecystitis Code(s): K81.0 - ACUTE CHOLECYSTITIS (3) Diabetes mellitus due to underlying condition Code(s): E08.9 - DIABETES DUE TO UNDERLYING CONDITION W/O COMPLICATIONS (4) Hyperglycemia Code(s): R73.9 - HYPERGLYCEMIA, UNSPECIFIED
[2017-10-14] MEDS: LACTATED RINGERS SOLUTION 1,000 ML/1,000 ML INFUS.BAG IV SCH (10:44)
[2017-10-14] MEDS: KCL 10 MEQ IVPB 10 MEQ/100 ML INFUS.BAG IVPB SCH ×3 (10:44→15:29)
--- NOTE | 2017-10-14 13:43 | PN ---
Progress Note, Physician History of Present Illness: still with pain no gi function daughter in room - Current Medication List Current Medications: Active Medications Acetaminophen (Tylenol -) 650 mg PO Q6H PRN PRN Reason: FEVER Last Admin: 10/13/17 21:07 Dose: 650 mg Amlodipine Besylate (Norvasc -) 5 mg PO DAILY [facility] Last Admin: 10/14/17 09:44 Dose: 5 mg Diphenhydramine HCl (Benadryl Injection -) 12.5 mg IVPUSH ONCE PRN PRN Reason: FOR ITCHING Hydrochlorothiazide (Hctz -) 12.5 mg PO DAILY [facility] Last Admin: 10/14/17 09:45 Dose: 12.5 mg Hydromorphone HCl (Dilaudid Ornamental Iron Erector -) 10 mg PATROLLER PATROLLER PETER; Protocol Stop: 10/19/17 15:59 Last Admin: 10/13/17 17:56 Dose: Not Given Piperacillin Sod/Tazobactam (Sod 4.5 gm/ Dextrose) 100 mls @ 200 mls/hr IVPB Q8H-IV PETER; Protocol Last Admin: 10/14/17 09:45 Dose: 200 mls/hr Lactated Ringer's (Lactated Ringers Solution) 1,000 ml in 1,000 mls @ 125 mls/ hr IV ASDIR [facility] Last Admin: 10/14/17 10:44 Dose: 125 mls/hr Insulin Aspart (Novolog Vial Sliding Scale -) 1 vial SQ ACHS [facility]; Protocol Last Admin: 10/14/17 12:22 Dose: 6 units Lisinopril (Prinivil) 20 mg PO DAILY [facility] Last Admin: 10/14/17 09:44 Dose: 20 mg Ondansetron HCl (Zofran Injection) 4 mg IVPUSH Q4H PRN PRN Reason: NAUSEA AND/OR VOMITING Last Admin: 10/13/17 14:07 Dose: 4 mg - Objective Vital Signs: Vital Signs Temperature 99.1 F 10/14/17 09:00 Pulse Rate 79 10/14/17 09:00 Respiratory Rate 20 10/14/17 09:00 Blood Pressure 134/67 10/14/17 09:00 O2 Sat by Pulse Oximetry (%) 92 L 10/14/17 09:00 Constitutional: Yes: Calm, Mild Distress Cardiovascular: Yes: Regular Rate and Rhythm Respiratory: Yes: Regular, CTA Bilaterally Gastrointestinal: Yes: Tenderness, Other (absent bowel sounds) Musculoskeletal: Yes: WNL Extremities: Yes: WNL Neurological: Yes: Alert, Oriented Labs: CBC, BMP 10/14/17 08:15 10/14/17 08:15 Assessment/Plan Problem List - Problems (1) Acute gangrenous cholecystitis Code(s): K81.0 - ACUTE CHOLECYSTITIS (2) Acute cholecystitis Code(s): K81.0 - ACUTE CHOLECYSTITIS (3) Diabetes mellitus due to underlying condition Code(s): E08.9 - DIABETES DUE TO UNDERLYING CONDITION W/O COMPLICATIONS (4) Hyperglycemia Code(s): R73.9 - HYPERGLYCEMIA, UNSPECIFIED plan continue current mgmt continue abx hydration rest as per surgery
--- NOTE | 2017-10-14 14:58 | PATH ---
Surgical Pathology Report Patient Name: MAXIMINO AYOUB [facility]. Rec. #: [id number] /Age/Gender: 1945 (Age: 71) / M Account: [id number] Location: [address] [place] [address] Taken: 10/12/2017 Received: 10/13/2017 Reported: 10/14/2017 Physicians: Luís Webb M.D. Specimen(s) Received GALLBLADDER Clinical History Acute cholecystitis Final Diagnosis GALLBLADDER, LAPAROSCOPIC CHOLECYSTECTOMY: ACUTE GANGRENOUS CHOLECYSTITIS. Electronically Signed Cheri Tan M.D. Gross Description Received in formalin, labeled "gallbladder," is a 8.5 x 5.5 x 2.4 cm. markedly torn and disrupted gallbladder. Due to the markedly fragmented nature of the gallbladder, no definite cystic duct margin is identified. The outer surface is green-brown and gangrenous with multifocal defects. There is no bile or choleliths present within the lumen.The mucosa is green and necrotic. The wall of the gallbladder ranges from 0.1-0.8 cm. in thickness. Crop Setting Out Machine Operator sections are submitted in one cassette. 10/13/2017 [facility]10/13/2017
[2017-10-14] MEDS ORDERED: HYDROmorphone *PCA* 10MG/50ML DISP.SYRIN PCA ONE (17:02)
--- NOTE | 2017-10-14 17:33 | PN ---
Physical Exam: SUBJECTIVE: Patient seen and examined. He complains of abdominal pain. OBJECTIVE: Vital Signs Period Temp Pulse Resp BP Sys/Cooley Pulse Ox Last 24 Hr 98.6 F-100.1 F 79-119 18-20 114-134/67-80 92-96 GENERAL: The patient is awake, alert, and fully oriented, in no acute distress. LUNGS: Breath sounds equal, clear to auscultation bilaterally, no wheezes, no crackles, no accessory muscle use. HEART: Regular rate and rhythm, S1, S2 without murmur, rub or gallop. ABDOMEN: Soft, nontender, nondistended, normoactive bowel sounds, no guarding, no rebound, no hepatosplenomegaly, no masses. Serosanguinous fluid in MADELAINE drains. EXTREMITIES: 2+ pulses, warm, well-perfused, no edema. Laboratory Results - last 24 hr 10/10/17 10/13/17 10/13/17 15:10 17:58 21:06 WBC RBC Hgb Hct MCV MCH MCHC RDW Plt Count MPV Absolute Neuts (auto) Neutrophils % Lymphocytes % Monocytes % Eosinophils % Basophils % Nucleated RBC % Sodium Potassium Chloride Carbon Dioxide Anion Gap BUN Creatinine Creat Clearance w eGFR POC Glucometer 198 204 Random Glucose Calcium Total Bilirubin Direct Bilirubin AST ALT Alkaline Phosphatase C-Reactive Protein Total Protein Albumin Total Amylase Lipase Crossmatch IS Only See Detail 10/14/17 10/14/17 10/14/17 05:53 08:15 08:15 WBC 13.1 H RBC 4.13 Hgb 12.5 Hct 37.1 MCV 89.8 MCH 30.2 MCHC 33.6 RDW 13.2 Plt Count 207 MPV 8.4 Absolute Neuts (auto) 9.7 H Neutrophils % 74.2 Lymphocytes % 13.5 D Monocytes % 11.8 H Eosinophils % 0.3 D Basophils % 0.2 Nucleated RBC % 0 Sodium 138 Potassium 2.9 L* Chloride 97 L Carbon Dioxide 33 H D Anion Gap 8 BUN 11 Creatinine 0.5 L Creat Clearance w eGFR > 60 POC Glucometer 205 Random Glucose 186 H Calcium 8.0 L Total Bilirubin 0.8 Direct Bilirubin AST 24 D ALT 31 Alkaline Phosphatase 96 D C-Reactive Protein Total Protein 5.5 L Albumin 2.0 L Total Amylase Lipase Crossmatch IS Only 10/14/17 10/14/17 10/14/17 08:15 10:47 16:40 WBC RBC Hgb Hct MCV MCH MCHC RDW Plt Count MPV Absolute Neuts (auto) Neutrophils % Lymphocytes % Monocytes % Eosinophils % Basophils % Nucleated RBC % Sodium Potassium Chloride Carbon Dioxide Anion Gap BUN Creatinine Creat Clearance w eGFR POC Glucometer 274 165 Random Glucose Calcium Total Bilirubin Direct Bilirubin 0.3 H D AST ALT Alkaline Phosphatase C-Reactive Protein 22.8 H Total Protein Albumin Total Amylase 24 L D Lipase 126 Crossmatch IS Only Active Medications Generic Name Dose Route Start Last Admin Trade Name Freq PRN Reason Stop Dose Admin Acetaminophen 650 mg 10/13/17 13:35 10/13/17 21:07 Tylenol - PO 650 mg Q6H PRN Administration FEVER Amlodipine Besylate 5 mg 10/13/17 10:00 10/14/17 09:44 Norvasc - PO 5 mg DAILY [facility] Administration Diphenhydramine HCl 12.5 mg 10/12/17 15:38 Benadryl Injection - IVPUSH ONCE PRN FOR ITCHING Hydrochlorothiazide 12.5 mg 10/13/17 10:00 10/14/17 09:45 Hctz - PO 12.5 mg DAILY [facility] Administration Hydromorphone HCl 10 mg 10/12/17 16:00 10/13/17 17:56 Dilaudid Building Maintenance Worker - LEAD NURSE 10/19/17 15:59 Not Given LEAD NURSE PETER Protocol Piperacillin Sod/Tazobactam 100 mls @ 200 mls/hr 10/12/17 18:00 10/14/17 09: 45 Sod 4.5 gm/ Dextrose IVPB 200 mls/hr Q8H-IV PETER Administration Protocol Lactated Ringer's 1,000 ml in 1,000 mls @ 125 mls/hr 10/14/17 10:15 10/14/17 10:44 Lactated Ringers Solution IV 125 mls/hr ASDIR PETER Administration Insulin Aspart 1 vial 10/12/17 16:30 10/14/17 17:32 Novolog Vial Sliding Scale - SQ 2 units ACHS PETER Administration Protocol Lisinopril 20 mg 10/13/17 10:00 10/14/17 09:44 Prinivil PO 20 mg DAILY [facility] Administration Ondansetron HCl 4 mg 10/12/17 15:38 10/13/17 14:07 Zofran Injection IVPUSH 4 mg Q4H PRN Administration NAUSEA AND/OR VOMITING ASSESSMENT/PLAN: This is a 71 year old man with a history of HTN, type 2 DM who presented to the ED with abdominal pain and vomiting. 1. Sepsis secondary to acute gangrenous cholecystitis - s/p open partial cholecystectomy 10/12 - Continue Zosyn - Pain control 2. Hypokalemia - Replete potassium 3. HTN - Continue Norvasc, Lisinopril, HCTZ 4. Type 2 DM - Continue Novolog sliding scale Visit type - Emergency Visit Emergency Visit: Yes ED Registration Date: 10/10/17 Care time: The patient presented to the Emergency Department on the above date and was hospitalized for further evaluation of their emergent condition. - New Patient This patient is new to me today: Yes Date on this admission: 10/14/17 - Critical Care Critical Care patient: No - Discharge Referral Referred to [facility] Med P.C.: No
[2017-10-14] MEDS: HYDROmorphone *PCA* 10MG/50ML DISP.SYRIN PCA SCH (17:37)
[2017-10-14 19:41] LABS: ANION GAP 10 MMOL/L (8-16); BLOOD UREA NITROGEN 11 mg/dL (7-18); CALCIUM 8.3 mg/dL (8.5-10.1); CHLORIDE 95 mmol/L (98-107); CO2 34 mmol/L (21-32); CREATININE 0.5 mg/dL (0.7-1.3); GLUCOSE,RANDOM 200 mg/dL (74-106); POTASSIUM 3.3 mmol/L (3.5-5.1); SODIUM 139 mmol/L (136-145)
--- NOTE | 2017-10-14 20:12 | EKG ---
Test Reason : Blood Pressure : / mmHG Vent. Rate : 088 BPM Atrial Rate : 088 BPM P-R Int : 194 ms QRS Dur : 102 ms QT Int : 386 ms P-R-T Axes : 055 -08 016 degrees QTc Int : 467 ms NORMAL SINUS RHYTHM WITH SINUS ARRHYTHMIA INFERIOR INFARCT , AGE UNDETERMINED ABNORMAL ECG WHEN COMPARED WITH ECG OF 13-OCT-2017 14:53, PREMATURE ATRIAL COMPLEXES ARE NO LONGER PRESENT Confirmed by MAXIMO FERRARO, TEJAS ([id number]) on 10/14/2017 8:12:22 PM Referred By: Yanira SCHWARTZ Confirmed By:TEJAS MARSH MD
[2017-10-14] MEDS ORDERED: INSULIN (NOVOLOG) ASPART 100 UNITS/ML 10ML VIAL ONE (21:23)
[2017-10-15] MEDS ORDERED: PIPERACILLIN/TAZOBACTAM 4.5 GM VIAL IVPB ONE ×3 (01:14→17:53)
[2017-10-15] MEDS ORDERED: DEXTROSE 5%-WATER 100 ML IVPB ONE ×3 (01:15→17:53)
[2017-10-15] MEDS: PIPERACILLIN/TAZOB 4.5 GM 4.5 GM in DEXTROSE 5%-WATER 100 ML IVPB SCH ×3 (01:39→18:16)
[2017-10-15] MEDS: INSULIN SLIDING SCALE (NOVOLOG) 1 VIAL SQ SCH ×4 (06:08→22:35)
[2017-10-15 07:52] LABS: BASO % 0.2 % (0-2.0); EOS % 1.6 % (0-4.5); HEMATOCRIT 34.2 % (35.4-49); HEMOGLOBIN 11.6 GM/dL (11.7-16.9); LYMPH % 17.7 % (8-40); MCH 30.2 pg (25.7-33.7); MCHC 33.8 g/dl (32.0-35.9); MEAN CELL VOLUME 89.3 fl (80-96); MEAN PLT VOLUME 8.3 fl (7.5-11.1); MONO % 13.1 % (3.8-10.2); NEUT % 67.4 % (42.8-82.8); PLATELET COUNT 223 K/MM3 (134-434); RBC 3.83 M/mm3 (4.00-5.60); RDW 13.2 % (11.9-15.9); WHITE BLOOD COUNT 11.9 K/mm3 (4.0-10.0)
[2017-10-15 08:15] LABS: ANION GAP 7 MMOL/L (8-16); BLOOD UREA NITROGEN 10 mg/dL (7-18); CALCIUM 7.8 mg/dL (8.5-10.1); CHLORIDE 94 mmol/L (98-107); CO2 36 mmol/L (21-32); CREATININE 0.5 mg/dL (0.7-1.3); GLUCOSE,RANDOM 189 mg/dL (74-106); SODIUM 137 mmol/L (136-145)
[2017-10-15] MEDS ORDERED: KCL 10 MEQ IVPB 10 MEQ/100 ML INFUS.BAG IVPB SCH (08:45)
[2017-10-15] MEDS: LISINOPRIL 20 MG TABLET (FP) PO SCH (09:21)
[2017-10-15] MEDS: amLODIPine BESYLATE 5 MG TABLET (FP) PO SCH (09:21)
[2017-10-15] MEDS: LACTATED RINGERS SOLUTION 1,000 ML/1,000 ML INFUS.BAG IV SCH (09:21)
[2017-10-15] MEDS: HYDROCHLOROTHIAZIDE 12.5 MG CAPSULE (FP) PO SCH (09:21)
[2017-10-15] MEDS: KCL 10 MEQ IVPB 10 MEQ/100 ML INFUS.BAG IVPB SCH ×3 (09:38→15:50)
--- NOTE | 2017-10-15 10:20 | PN ---
Progress Note (short form) - Note Progress Note: Anesthesia Post-op Note Pt s/p laparoscopic cholecystectomy converted to open on 10/12/17. Reports pain tolerable with PLUSH BRUSHER. Denies nausea/vomiting. Vital Signs Temperature 99.0 F 10/15/17 08:56 Pulse Rate 76 10/15/17 08:56 Respiratory Rate 20 10/15/17 08:56 Blood Pressure 130/67 10/15/17 08:56 O2 Sat by Pulse Oximetry (%) 92 L 10/15/17 08:25 Continue care per primary team. Continue PLUSH BRUSHER. Bowel regimen while on pain meds. OOB. Encourage ISS.
--- NOTE | 2017-10-15 10:40 | PN ---
Progress Note (short form) - Note Progress Note: Subjective: The patient was seen and examined at the bedside, he has no complaints Current Medications Generic Name Dose Route Start Last Admin Trade Name Freq PRN Reason Stop Dose Admin Acetaminophen 650 mg 10/13/17 13:35 Tylenol - PO Q6H PRN FEVER Amlodipine Besylate 5 mg 10/13/17 10:00 10/13/17 12:06 Norvasc - PO 5 mg DAILY PETER Administration Diphenhydramine HCl 12.5 mg 10/12/17 15:38 Benadryl Injection - IVPUSH ONCE PRN FOR ITCHING Hydrochlorothiazide 12.5 mg 10/13/17 10:00 10/13/17 12:06 Hctz - PO 12.5 mg DAILY PETER Administration Hydromorphone HCl 10 mg 10/12/17 16:00 10/12/17 16:30 Dilaudid Military Lawyer - POST CLOSING SPECIALIST 10/19/17 15:59 10 mg POST CLOSING SPECIALIST PETER Administration Protocol Sodium Chloride 1,000 mls @ 100 mls/hr 10/12/17 16:11 10/13/17 02:12 Normal Saline - IV 100 mls/hr ASDIR PETER Administration Piperacillin Sod/Tazobactam 100 mls @ 200 mls/hr 10/12/17 18:00 10/13/17 12: 05 Sod 4.5 gm/ Dextrose IVPB 200 mls/hr Q8H-IV PETER Administration Protocol Insulin Aspart 1 vial 10/12/17 16:30 10/13/17 13:10 Novolog Vial Sliding Scale - SQ 8 units ACHS PETER Administration Protocol Lisinopril 20 mg 10/13/17 10:00 10/13/17 12:06 Prinivil PO 20 mg DAILY PETER Administration Ondansetron HCl 4 mg 10/12/17 15:38 10/13/17 14:07 Zofran Injection IVPUSH 4 mg Q4H PRN Administration NAUSEA AND/OR VOMITING Objective: Vital Signs Period Temp Pulse Resp BP Sys/Cooley Pulse Ox Last 24 Hr 98.4 F-100.3 F 80-96 16-20 109-139/6-76 94-96 Physical Exam: General: NAD Lungs: CTA bilaterally Heart: RRR, S1S2 Abd: Dressings c/d/i. JPx2 with bloody drainage. Absent bowel sounds Microbiology 10/10/17 12:33 Blood - Peripheral Venous Blood Culture - Preliminary NO GROWTH OBTAINED AFTER 72 HOURS, INCUBATION TO CONTINUE FOR 2 DAYS. 10/10/17 12:35 Blood - Peripheral Venous Blood Culture - Preliminary NO GROWTH OBTAINED AFTER 72 HOURS, INCUBATION TO CONTINUE FOR 2 DAYS. 10/10/17 07:15 Urine - Urine Clean Catch Urine Culture - Final NO GROWTH OBTAINED Assessment: This is a 71 year old with PMHx of HTN, NIDDM, who presented to the ED with abdominal pain and vomiting. Plan: 1) Sepsis 2/2 acute gangrenous cholecystitis - POD#3 open partial cholecystectomy, grossly gangrenous gallbladder with necrosis - MADELAINE drains in place - Dilaudid hand laster per anesthesia - Continue Zosyn - Appreciate surgery consult - Appreciate ID consult 2) HTN - Continue Norvasc, Hctz, Lisinopril 3) DM - BGM ACHS - ISS ACHS 4) F/E/N: - IV fluids - CL diet - Hypokalemia: replete - Incentive spirometer, needs encouragement 5) Prophylaxis: - DVT prophylaxis per surgery 6) Dispo: - Requires continued inpatient care CODE STATUS: FULL CODE Visit type - Emergency Visit Emergency Visit: Yes ED Registration Date: 10/10/17 Care time: The patient presented to the Emergency Department on the above date and was hospitalized for further evaluation of their emergent condition. - New Patient This patient is new to me today: No - Critical Care Critical Care patient: No
[2017-10-15] MEDS ORDERED: INSULIN (NOVOLOG) ASPART 100 UNITS/ML 10ML VIAL ONE (11:03)
--- NOTE | 2017-10-15 14:27 | PN ---
Progress Note, Physician History of Present Illness: patient c/o of nausea abd pain - Current Medication List Current Medications: Active Medications Acetaminophen (Tylenol -) 650 mg PO Q6H PRN PRN Reason: FEVER Last Admin: 10/13/17 21:07 Dose: 650 mg Amlodipine Besylate (Norvasc -) 5 mg PO DAILY [facility] Last Admin: 10/15/17 09:21 Dose: 5 mg Diphenhydramine HCl (Benadryl Injection -) 12.5 mg IVPUSH ONCE PRN PRN Reason: FOR ITCHING Hydrochlorothiazide (Hctz -) 12.5 mg PO DAILY [facility] Last Admin: 10/15/17 09:21 Dose: 12.5 mg Hydromorphone HCl (Dilaudid Laborer Yard -) 10 mg TIER LIFT OPERATOR TIER LIFT OPERATOR PETER; Protocol Stop: 10/19/17 15:59 Last Admin: 10/14/17 17:37 Dose: 10 mg Piperacillin Sod/Tazobactam (Sod 4.5 gm/ Dextrose) 100 mls @ 200 mls/hr IVPB Q8H-IV PETER; Protocol Last Admin: 10/15/17 09:21 Dose: 200 mls/hr Lactated Ringer's (Lactated Ringers Solution) 1,000 ml in 1,000 mls @ 125 mls/ hr IV ASDIR [facility] Last Admin: 10/15/17 09:21 Dose: Not Given Insulin Aspart (Novolog Vial Sliding Scale -) 1 vial SQ ACHS [facility]; Protocol Last Admin: 10/15/17 11:20 Dose: Not Given Lisinopril (Prinivil) 20 mg PO DAILY [facility] Last Admin: 10/15/17 09:21 Dose: 20 mg Ondansetron HCl (Zofran Injection) 4 mg IVPUSH Q4H PRN PRN Reason: NAUSEA AND/OR VOMITING Last Admin: 10/13/17 14:07 Dose: 4 mg - Objective Vital Signs: Vital Signs Temperature 99.0 F 10/15/17 08:56 Pulse Rate 76 10/15/17 08:56 Respiratory Rate 20 10/15/17 08:56 Blood Pressure 130/67 10/15/17 08:56 O2 Sat by Pulse Oximetry (%) 92 L 10/15/17 09:00 Constitutional: Yes: No Distress, Calm Cardiovascular: Yes: Regular Rate and Rhythm Respiratory: Yes: Regular, CTA Bilaterally Gastrointestinal: Yes: Hypoactive Bowel Sounds, Other Musculoskeletal: Yes: WNL Extremities: Yes: WNL Neurological: Yes: Alert, Oriented Psychiatric: Yes: Alert, Oriented Labs: CBC, BMP 10/15/17 07:05 10/15/17 07:05 Assessment/Plan Problem List - Problems (1) Acute gangrenous cholecystitis Code(s): K81.0 - ACUTE CHOLECYSTITIS (2) Acute cholecystitis Code(s): K81.0 - ACUTE CHOLECYSTITIS (3) Diabetes mellitus due to underlying condition Code(s): E08.9 - DIABETES DUE TO UNDERLYING CONDITION W/O COMPLICATIONS (4) Hyperglycemia Code(s): R73.9 - HYPERGLYCEMIA, UNSPECIFIED plan continue current mgmt continue abx hydration rest as per surgery will await for patient to tolerate orally before switching
[2017-10-15] MEDS: ONDANSETRON 4 MG/2 ML VIAL IVPUSH PRN (14:28)
[2017-10-15] MEDS ORDERED: BENZOCAINE/MENTH/CETYLPYRD CL 1 EACH LOZENGE MM PRN (16:29)
[2017-10-15] MEDS: ACETAMINOPHEN 325 MG TABLET (FP) PO PRN (18:07)
[2017-10-16] MEDS ORDERED: PIPERACILLIN/TAZOBACTAM 4.5 GM VIAL IVPB ONE ×3 (01:03→16:21)
[2017-10-16] MEDS ORDERED: DEXTROSE 5%-WATER 100 ML IVPB ONE ×3 (01:03→16:22)
[2017-10-16] MEDS: PIPERACILLIN/TAZOB 4.5 GM 4.5 GM in DEXTROSE 5%-WATER 100 ML IVPB SCH ×3 (01:33→17:18)
[2017-10-16] MEDS: INSULIN SLIDING SCALE (NOVOLOG) 1 VIAL SQ SCH ×4 (06:28→21:18)
[2017-10-16 08:32] LABS: BASO % 0.4 % (0-2.0); EOS % 0.9 % (0-4.5); HEMATOCRIT 35.3 % (35.4-49); HEMOGLOBIN 12.3 GM/dL (11.7-16.9); LYMPH % 13.3 % (8-40); MCHC 34.8 g/dl (32.0-35.9); MEAN CELL VOLUME 89.1 fl (80-96); MEAN PLT VOLUME 8.4 fl (7.5-11.1); MONO % 11.4 % (3.8-10.2); PLATELET COUNT 288 K/MM3 (134-434); RBC 3.97 M/mm3 (4.00-5.60); RDW 13.1 % (11.9-15.9); WHITE BLOOD COUNT 11.9 K/mm3 (4.0-10.0)
[2017-10-16 09:04] LABS: ALBUMIN 1.8 g/dl (3.4-5.0); ANION GAP 10 MMOL/L (8-16); BILIRUBIN,DIRECT 0.2 mg/dL (0.0-0.2); BILIRUBIN,TOTAL 0.5 mg/dL (0.2-1.0); BLOOD UREA NITROGEN 9 mg/dL (7-18); CALCIUM 8.1 mg/dL (8.5-10.1); CHLORIDE 95 mmol/L (98-107); CO2 34 mmol/L (21-32); CREATININE 0.5 mg/dL (0.7-1.3); GLUCOSE,RANDOM 192 mg/dL (74-106); LIPASE 140 U/L (73-393); POTASSIUM 3.3 mmol/L (3.5-5.1); SGOT/AST 13 U/L (15-37); SGPT/ALT 17 U/L (12-78); SODIUM 139 mmol/L (136-145); TOT PROT 5.2 g/dl (6.4-8.2)
[2017-10-16 09:12] LABS: ALK PHOS 85 U/L (45-117); AMYLASE 26 U/L (25-115)
--- NOTE | 2017-10-16 09:23 | PN ---
Progress Note, Physician Chief Complaint: abdominal pain History of Present Illness: 71yo male PMH DM presents with left lower quadrant abdominal pain 1 day. Patient has a history significant for hypertension, hyperlipidemia and type 2 diabetes. He feel better, remians hemodynamically stable. - Current Medication List Current Medications: Active Medications Acetaminophen (Tylenol -) 650 mg PO Q6H PRN PRN Reason: FEVER Last Admin: 10/15/17 18:07 Dose: 650 mg Amlodipine Besylate (Norvasc -) 5 mg PO DAILY [facility] Last Admin: 10/15/17 09:21 Dose: 5 mg Benzocaine/Menthol (Cepacol Lozenge -) 1 each MM DAILY PRN PRN Reason: SORE THROAT Diphenhydramine HCl (Benadryl Injection -) 12.5 mg IVPUSH ONCE PRN PRN Reason: FOR ITCHING Hydrochlorothiazide (Hctz -) 12.5 mg PO DAILY [facility] Last Admin: 10/15/17 09:21 Dose: 12.5 mg Hydromorphone HCl (Dilaudid Datastage Developer -) 10 mg COVER CREASER COVER CREASER [facility]; Protocol Stop: 10/19/17 15:59 Last Admin: 10/14/17 17:37 Dose: 10 mg Piperacillin Sod/Tazobactam (Sod 4.5 gm/ Dextrose) 100 mls @ 200 mls/hr IVPB Q8H-IV PETER; Protocol Last Admin: 10/16/17 01:33 Dose: 200 mls/hr Lactated Ringer's (Lactated Ringers Solution) 1,000 ml in 1,000 mls @ 125 mls/ hr IV ASDIR [facility] Last Admin: 10/15/17 09:21 Dose: Not Given Insulin Aspart (Novolog Vial Sliding Scale -) 1 vial SQ ACHS [facility]; Protocol Last Admin: 10/16/17 06:28 Dose: 4 units Lisinopril (Prinivil) 20 mg PO DAILY [facility] Last Admin: 10/15/17 09:21 Dose: 20 mg Nystatin (Nystatin Oral Suspension -) 500,000 units PO Q6HPO [facility] Ondansetron HCl (Zofran Injection) 4 mg IVPUSH Q4H PRN PRN Reason: NAUSEA AND/OR VOMITING Last Admin: 10/15/17 14:28 Dose: 4 mg - Objective Vital Signs: Vital Signs Temperature 99.2 F 10/16/17 08:27 Pulse Rate 90 10/16/17 08:27 Respiratory Rate 20 10/16/17 08:27 Blood Pressure 124/63 10/16/17 08:27 O2 Sat by Pulse Oximetry (%) 92 L 10/15/17 22:00 Vital Signs Period Temp Pulse Resp BP Sys/Cooley Pulse Ox Last 24 Hr 97.8 F-99.6 F 80-99 20-20 110-134/60-72 92-93 Intake & Output 10/15/17 10/16/17 10/16/17 23:59 07:59 15:59 Intake Total 200 1800 Output Total 800 890 Balance -600 910 Intake: IV 1500 LACTATED RINGERS SOLUTION 1500 1,000 ml In 1,000 ml @ 125 mls/hr IV ASDIR PETER Rx#:[id number] IVPB 100 Oral 200 200 Output: Drainage 100 90 MADELAINE Drain 1 20 10 MADELAINE Drain 2 80 80 Urine 700 800 Void 700 800 Other: Voiding Method Toilet # Unmeasured Voids Void 2 Bowel Movement No Constitutional: Yes: Well Nourished, No Distress, Calm Eyes: Yes: Conjunctiva Clear, EOM Intact HENT: Yes: Atraumatic, Normocephalic Neck: Yes: Supple, Trachea Midline Cardiovascular: Yes: Regular Rate and Rhythm, S1, S2 Respiratory: Yes: Regular, CTA Bilaterally Gastrointestinal: Yes: Normal Bowel Sounds, Soft. No: Tenderness, Tenderness, Epigastrium, Tenderness, Rebound ...Rectal Exam: Yes: Deferred Genitourinary: No: CVA Tenderness - Left, CVA Tenderness - Right Musculoskeletal: No: Muscle Pain, Muscle Weakness Extremities: No: Cool, Cyanosis Edema: No Peripheral Pulses WNL: Yes Peripheral Pulses: Left Radial: 2+, Right Radial: 2+ Wound/Incision: Yes: Clean/Dry, Well Approximated, Steve Intact, Dressing Dry and Intact Neurological: Yes: Alert, Oriented Psychiatric: Yes: Alert, Oriented Labs: CBC, BMP 10/16/17 07:30 10/16/17 07:30 Problem List - Problems (1) Acute gangrenous cholecystitis Assessment/Plan: 71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 JP1 from the Cystic is scant 30ml per shift, will remove one drain if less than 30ml Diet as tolerated Continued IV antibiotics Daily wound care Strict I&O from Drains OOB and ambulate encourge IS Physical therapy evaluation D/C planning with VNS for wound care and MADELAINE will follow Code(s): K81.0 - ACUTE CHOLECYSTITIS (2) Acute cholecystitis Code(s): K81.0 - ACUTE CHOLECYSTITIS (3) Diabetes mellitus due to underlying condition Code(s): E08.9 - DIABETES DUE TO UNDERLYING CONDITION W/O COMPLICATIONS (4) Hyperglycemia Code(s): R73.9 - HYPERGLYCEMIA, UNSPECIFIED
[2017-10-16 09:28] LABS: INR 1.17 (0.83-1.09); PROTHROMBIN TIME (PATIENT) 13.2 SEC (9.7-13.0)
[2017-10-16] MEDS: NYSTATIN 500,000 UNITS/5 ML SUSPENSION PO SCH ×3 (09:28→17:18)
[2017-10-16] MEDS: LISINOPRIL 20 MG TABLET (FP) PO SCH (09:29)
[2017-10-16] MEDS: HYDROCHLOROTHIAZIDE 12.5 MG CAPSULE (FP) PO SCH (09:29)
[2017-10-16] MEDS: HYDROmorphone *PCA* 10MG/50ML DISP.SYRIN PCA SCH ×2 (09:29→17:32)
[2017-10-16] MEDS: amLODIPine BESYLATE 5 MG TABLET (FP) PO SCH (09:29)
--- NOTE | 2017-10-16 10:41 | PN ---
Physical Exam: SUBJECTIVE: Patient seen and examined. Patient complains of a mild cough. He has been requiring oxygen - 92% on 4L. He has not been able to use an incentive spirometer. OBJECTIVE: Vital Signs Period Temp Pulse Resp BP Sys/Cooley Pulse Ox Last 24 Hr 97.8 F-99.6 F 80-99 20-20 110-134/60-72 92-93 GENERAL: The patient is awake, alert, and fully oriented, in no acute distress. LUNGS: Poor effort. Breath sounds equal, clear to auscultation bilaterally, no wheezes, no crackles, no accessory muscle use. HEART: Regular rate and rhythm, S1, S2 without murmur, rub or gallop. ABDOMEN: Soft, (+) RUQ/epigastric tenderness, MADELAINE drains in place, nondistended, hypoactive bowel sounds, no guarding, no rebound, no hepatosplenomegaly, no masses. EXTREMITIES: 2+ pulses, warm, well-perfused, no edema. Laboratory Results - last 24 hr 10/15/17 10/15/17 10/15/17 11:19 18:15 22:34 WBC RBC Hgb Hct MCV MCH MCHC RDW Plt Count MPV Absolute Neuts (auto) Neutrophils % Lymphocytes % Monocytes % Eosinophils % Basophils % Nucleated RBC % PT with INR INR Sodium Potassium Chloride Carbon Dioxide Anion Gap BUN Creatinine Creat Clearance w eGFR POC Glucometer 181 261 243 Random Glucose Calcium Total Bilirubin Direct Bilirubin AST ALT Alkaline Phosphatase Total Protein Albumin Total Amylase Lipase 10/16/17 10/16/17 10/16/17 06:14 07:30 07:30 WBC 11.9 H RBC 3.97 L Hgb 12.3 Hct 35.3 L MCV 89.1 MCH 31.0 MCHC 34.8 RDW 13.1 Plt Count 288 D MPV 8.4 Absolute Neuts (auto) 8.8 H Neutrophils % 74.0 Lymphocytes % 13.3 D Monocytes % 11.4 H Eosinophils % 0.9 Basophils % 0.4 Nucleated RBC % 0 PT with INR 13.20 H INR 1.17 H Sodium Potassium Chloride Carbon Dioxide Anion Gap BUN Creatinine Creat Clearance w eGFR POC Glucometer 222 Random Glucose Calcium Total Bilirubin Direct Bilirubin AST ALT Alkaline Phosphatase Total Protein Albumin Total Amylase Lipase 10/16/17 07:30 WBC RBC Hgb Hct MCV MCH MCHC RDW Plt Count MPV Absolute Neuts (auto) Neutrophils % Lymphocytes % Monocytes % Eosinophils % Basophils % Nucleated RBC % PT with INR INR Sodium 139 Potassium 3.3 L Chloride 95 L Carbon Dioxide 34 H Anion Gap 10 BUN 9 Creatinine 0.5 L Creat Clearance w eGFR > 60 POC Glucometer Random Glucose 192 H Calcium 8.1 L Total Bilirubin 0.5 Direct Bilirubin 0.2 D AST 13 L D ALT 17 D Alkaline Phosphatase 85 D Total Protein 5.2 L Albumin 1.8 L Total Amylase 26 Lipase 140 Active Medications Generic Name Dose Route Start Last Admin Trade Name Freq PRN Reason Stop Dose Admin Acetaminophen 650 mg 10/13/17 13:35 10/15/17 18:07 Tylenol - PO 650 mg Q6H PRN Administration FEVER Amlodipine Besylate 5 mg 10/13/17 10:00 10/16/17 09:29 Norvasc - PO 5 mg DAILY PETER Administration Benzocaine/Menthol 1 each 10/15/17 16:29 Cepacol Lozenge - MM DAILY PRN SORE THROAT Diphenhydramine HCl 12.5 mg 10/12/17 15:38 Benadryl Injection - IVPUSH ONCE PRN FOR ITCHING Hydrochlorothiazide 12.5 mg 10/13/17 10:00 10/16/17 09:29 Hctz - PO 12.5 mg DAILY PETER Administration Hydromorphone HCl 10 mg 10/12/17 16:00 10/16/17 09:29 Dilaudid Color Dipper - CIGAR MACHINE FEEDER 10/19/17 15:59 Not Given CIGAR MACHINE FEEDER PETER Protocol Piperacillin Sod/Tazobactam 100 mls @ 200 mls/hr 10/12/17 18:00 10/16/17 09: 28 Sod 4.5 gm/ Dextrose IVPB 200 mls/hr Q8H-IV PETER Administration Protocol Lactated Ringer's 1,000 ml in 1,000 mls @ 125 mls/hr 10/14/17 10:15 10/15/17 09:21 Lactated Ringers Solution IV Not Given ASDIR PETER Insulin Aspart 1 vial 10/12/17 16:30 10/16/17 06:28 Novolog Vial Sliding Scale - SQ 4 units ACHS PETER Administration Protocol Lisinopril 20 mg 10/13/17 10:00 10/16/17 09:29 Prinivil PO 20 mg DAILY PETER Administration Nystatin 500,000 units 10/16/17 08:15 10/16/17 09:28 Nystatin Oral Suspension - PO 500,000 units Q6HPO PETER Administration Ondansetron HCl 4 mg 10/12/17 15:38 10/15/17 14:28 Zofran Injection IVPUSH 4 mg Q4H PRN Administration NAUSEA AND/OR VOMITING ASSESSMENT/PLAN: This is a 71 year old man with a history of HTN, type 2 DM who presented to the ED with abdominal pain and vomiting. 1. Sepsis secondary to acute gangrenous cholecystitis - s/p open partial cholecystectomy 10/12 - Continue Zosyn - Pain control 2. Hypoxia - Continue oxygen to maintain saturation > 90% - Chest x-ray 3. Hypokalemia - Continue to replete potassium - Check magnesium 4. HTN - Continue Norvasc, Lisinopril, HCTZ 5. Type 2 DM - Continue Novolog sliding scale Visit type - Emergency Visit Emergency Visit: Yes ED Registration Date: 10/10/17 Care time: The patient presented to the Emergency Department on the above date and was hospitalized for further evaluation of their emergent condition. - New Patient This patient is new to me today: No - Critical Care Critical Care patient: No - Discharge Referral Referred to [facility] No
[2017-10-16] MEDS ORDERED: INSULIN (NOVOLOG) ASPART 100 UNITS/ML 10ML VIAL ONE ×3 (11:52→21:11)
[2017-10-16] MEDS: KCL 10 MEQ IVPB 10 MEQ/100 ML INFUS.BAG IVPB SCH ×3 (12:07→16:14)
--- NOTE | 2017-10-16 14:03 | PN ---
Progress Note, Physician History of Present Illness: post op stable family in room still with pain no gi function - Current Medication List Current Medications: Active Medications Acetaminophen (Tylenol -) 650 mg PO Q6H PRN PRN Reason: FEVER Last Admin: 10/15/17 18:07 Dose: 650 mg Amlodipine Besylate (Norvasc -) 5 mg PO DAILY [facility] Last Admin: 10/16/17 09:29 Dose: 5 mg Benzocaine/Menthol (Cepacol Lozenge -) 1 each MM DAILY PRN PRN Reason: SORE THROAT Last Admin: 10/16/17 08:00 Dose: 1 each Diphenhydramine HCl (Benadryl Injection -) 12.5 mg IVPUSH ONCE PRN PRN Reason: FOR ITCHING Hydrochlorothiazide (Hctz -) 12.5 mg PO DAILY [facility] Last Admin: 10/16/17 09:29 Dose: 12.5 mg Hydromorphone HCl (Dilaudid Screen Repairer Crusher -) 10 mg ANTHROPOLOGY DEPARTMENT CHAIR ANTHROPOLOGY DEPARTMENT CHAIR PETER; Protocol Stop: 10/19/17 15:59 Last Admin: 10/16/17 09:29 Dose: Not Given Piperacillin Sod/Tazobactam (Sod 4.5 gm/ Dextrose) 100 mls @ 200 mls/hr IVPB Q8H-IV PETER; Protocol Last Admin: 10/16/17 09:28 Dose: 200 mls/hr Lactated Ringer's (Lactated Ringers Solution) 1,000 ml in 1,000 mls @ 125 mls/ hr IV ASDIR [facility] Last Admin: 10/15/17 09:21 Dose: Not Given Insulin Aspart (Novolog Vial Sliding Scale -) 1 vial SQ ACHS [facility]; Protocol Last Admin: 10/16/17 12:07 Dose: 6 units Lisinopril (Prinivil) 20 mg PO DAILY [facility] Last Admin: 10/16/17 09:29 Dose: 20 mg Nystatin (Nystatin Oral Suspension -) 500,000 units PO Q6HPO [facility] Last Admin: 10/16/17 09:28 Dose: 500,000 units Ondansetron HCl (Zofran Injection) 4 mg IVPUSH Q4H PRN PRN Reason: NAUSEA AND/OR VOMITING Last Admin: 10/15/17 14:28 Dose: 4 mg Senna/Docusate Sodium (Pericolace -) 2 tablet PO HS [facility] Stop: 10/17/17 13:02 - Objective Vital Signs: Vital Signs Temperature 99.2 F 10/16/17 08:27 Pulse Rate 90 10/16/17 08:27 Respiratory Rate 20 10/16/17 08:27 Blood Pressure 124/63 10/16/17 08:27 O2 Sat by Pulse Oximetry (%) 93 L 10/16/17 10:00 Constitutional: Yes: Calm, Mild Distress HENT: Yes: Atraumatic Neck: Yes: Supple, Trachea Midline Cardiovascular: Yes: Regular Rate and Rhythm Respiratory: Yes: Regular, CTA Bilaterally Gastrointestinal: Yes: Soft, Hypoactive Bowel Sounds Musculoskeletal: Yes: WNL Extremities: Yes: WNL Wound/Incision: Yes: Clean/Dry, Dressing Dry and Intact Neurological: Yes: Alert, Oriented Psychiatric: Yes: Alert, Oriented Labs: CBC, BMP 10/16/17 07:30 10/16/17 07:30 INR, PTT INR 1.17 (0.83-1.09) H 10/16/17 07:30 Assessment/Plan Problem List - Problems (1) Acute gangrenous cholecystitis Code(s): K81.0 - ACUTE CHOLECYSTITIS (2) Acute cholecystitis Code(s): K81.0 - ACUTE CHOLECYSTITIS (3) Diabetes mellitus due to underlying condition Code(s): E08.9 - DIABETES DUE TO UNDERLYING CONDITION W/O COMPLICATIONS (4) Hyperglycemia Code(s): R73.9 - HYPERGLYCEMIA, UNSPECIFIED plan continue current mgmt continue abx hydration rest as per surgery
[2017-10-16] MEDS: LACTATED RINGERS SOLUTION 1,000 ML/1,000 ML INFUS.BAG IV SCH (17:31)
[2017-10-16 18:03] LABS: ANION GAP 8 MMOL/L (8-16); BLOOD UREA NITROGEN 8 mg/dL (7-18); CALCIUM 8.5 mg/dL (8.5-10.1); CHLORIDE 92 mmol/L (98-107); CO2 37 mmol/L (21-32); CREATININE 0.5 mg/dL (0.7-1.3); GLUCOSE,RANDOM 261 mg/dL (74-106); MAGNESIUM 1.6 mg/dL (1.8-2.4); POTASSIUM 3.5 mmol/L (3.5-5.1); SODIUM 137 mmol/L (136-145)
[2017-10-16] MEDS ORDERED: POLYETHYLENE GLYCOL 3350 119 GM BTL PO ONE (18:30)
[2017-10-16] MEDS ORDERED: MAGNESIUM OXIDE 400 MG TABLET (FP) PO ONE (20:03)
[2017-10-16] MEDS ORDERED: SENNOSIDES/DOCUSATE COMBO (SENNA PLUS) TABLET (UD) PO SCH (22:00)
[2017-10-17] MEDS ORDERED: PIPERACILLIN/TAZOBACTAM 4.5 GM VIAL IVPB ONE ×3 (01:20→16:31)
[2017-10-17] MEDS ORDERED: DEXTROSE 5%-WATER 100 ML IVPB ONE ×3 (01:20→16:31)
[2017-10-17] MEDS: PIPERACILLIN/TAZOB 4.5 GM 4.5 GM in DEXTROSE 5%-WATER 100 ML IVPB SCH ×3 (01:24→17:13)
[2017-10-17] MEDS: NYSTATIN 500,000 UNITS/5 ML SUSPENSION PO SCH ×4 (01:25→17:13)
[2017-10-17] MEDS: LACTATED RINGERS SOLUTION 1,000 ML/1,000 ML INFUS.BAG IV SCH ×2 (05:25→14:59)
[2017-10-17] MEDS: INSULIN SLIDING SCALE (NOVOLOG) 1 VIAL SQ SCH ×4 (06:47→21:27)
--- NOTE | 2017-10-17 08:11 | PN ---
Progress Note, Physician Chief Complaint: abdominal pain History of Present Illness: 71yo male PMH DM presents with left lower quadrant abdominal pain 1 day. Patient has a history significant for hypertension, hyperlipidemia and type 2 diabetes. He feel better, remains hemodynamically stable. - Current Medication List Current Medications: Active Medications Acetaminophen (Tylenol -) 650 mg PO Q6H PRN PRN Reason: FEVER Last Admin: 10/15/17 18:07 Dose: 650 mg Amlodipine Besylate (Norvasc -) 5 mg PO DAILY [facility] Last Admin: 10/16/17 09:29 Dose: 5 mg Benzocaine/Menthol (Cepacol Lozenge -) 1 each MM DAILY PRN PRN Reason: SORE THROAT Last Admin: 10/16/17 08:00 Dose: 1 each Diphenhydramine HCl (Benadryl Injection -) 12.5 mg IVPUSH ONCE PRN PRN Reason: FOR ITCHING Hydrochlorothiazide (Hctz -) 12.5 mg PO DAILY [facility] Last Admin: 10/16/17 09:29 Dose: 12.5 mg Piperacillin Sod/Tazobactam (Sod 4.5 gm/ Dextrose) 100 mls @ 200 mls/hr IVPB Q8H-IV PETER; Protocol Last Admin: 10/17/17 01:24 Dose: 200 mls/hr Lactated Ringer's (Lactated Ringers Solution) 1,000 ml in 1,000 mls @ 125 mls/ hr IV ASDIR [facility] Last Admin: 10/17/17 05:25 Dose: 125 mls/hr Insulin Aspart (Novolog Vial Sliding Scale -) 1 vial SQ ACHS [facility]; Protocol Last Admin: 10/17/17 06:47 Dose: 4 units Lisinopril (Prinivil) 20 mg PO DAILY [facility] Last Admin: 10/16/17 09:29 Dose: 20 mg Nystatin (Nystatin Oral Suspension -) 500,000 units PO Q6HPO [facility] Last Admin: 10/17/17 06:05 Dose: 500,000 units Ondansetron HCl (Zofran Injection) 4 mg IVPUSH Q4H PRN PRN Reason: NAUSEA AND/OR VOMITING Last Admin: 10/15/17 14:28 Dose: 4 mg Oxycodone HCl (Roxicodone -) 5 mg PO Q6H PRN PRN Reason: PAIN LEVEL 7 - 10 Senna/Docusate Sodium (Pericolace -) 2 tablet PO HS [facility] Stop: 10/17/17 13:02 Last Admin: 10/16/17 21:17 Dose: 2 tablet - Objective Vital Signs: Vital Signs Temperature 99.5 F 10/17/17 05:30 Pulse Rate 91 H 10/17/17 05:30 Respiratory Rate 20 10/16/17 22:35 Blood Pressure 145/75 10/17/17 05:30 O2 Sat by Pulse Oximetry (%) 94 L 10/16/17 22:00 Vital Signs Period Temp Pulse Resp BP Sys/Cooley Pulse Ox Last 24 Hr 98.9 F-99.5 F 78-92 20-20 124-145/63-75 93-94 Intake & Output 10/16/17 10/17/17 10/17/17 23:59 07:59 15:59 Intake Total 1500 Output Total 1220 Balance -1220 1500 Intake: IV 1400 LACTATED RINGERS SOLUTION 1400 1,000 ml In 1,000 ml @ 125 mls/hr IV ASDIR PETER Rx#:[id number] IVPB 100 Output: Drainage 220 MADELAINE Drain 1 20 MADELAINE Drain 2 200 Urine 1000 Void 1000 Other: Voiding Method Urinal # Unmeasured Voids Void 2 Bowel Movement No Constitutional: Yes: Well Nourished, No Distress, Calm Eyes: Yes: Conjunctiva Clear, EOM Intact HENT: Yes: Atraumatic, Normocephalic Neck: Yes: Supple, Trachea Midline Cardiovascular: Yes: Regular Rate and Rhythm, S1, S2 Respiratory: Yes: Regular, CTA Bilaterally Gastrointestinal: Yes: Normal Bowel Sounds, Soft, Abdomen, Obese. No: Tenderness, Tenderness, Epigastrium, Tenderness, Rebound ...Rectal Exam: Yes: Deferred Genitourinary: No: CVA Tenderness - Left, CVA Tenderness - Right Musculoskeletal: No: Muscle Pain, Muscle Weakness Extremities: No: Cool, Cyanosis Edema: No Peripheral Pulses WNL: Yes Peripheral Pulses: Left Radial: 2+, Right Radial: 2+, Left Doralis Pedis: 2+, Right Dorsalis Pedis: 2+ Integumentary: No: Jaundice, Rash Wound/Incision: Yes: Clean/Dry, [place] Intact, Dressing Dry and Intact Neurological: Yes: Alert, Oriented Psychiatric: Yes: Alert, Oriented Labs: INR, PTT INR 1.17 (0.83-1.09) H 10/16/ 07:30 Problem List - Problems (1) Acute gangrenous cholecystitis Assessment/Plan: 71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 JP1 from the Cystic is scant 30ml per shift, will remove one drain if less than 30ml Diet as tolerated Continued IV antibiotics Daily wound care Strict I&O from Drains OOB and ambulate encourge IS Physical therapy evaluation D/C planning with VNS for wound care and MADELAINE will follow Code(s): K81.0 - ACUTE CHOLECYSTITIS (2) Acute cholecystitis Code(s): K81.0 - ACUTE CHOLECYSTITIS (3) Diabetes mellitus due to underlying condition Code(s): E08.9 - DIABETES DUE TO UNDERLYING CONDITION W/O COMPLICATIONS (4) Hyperglycemia Code(s): R73.9 - HYPERGLYCEMIA, UNSPECIFIED
[2017-10-17 08:13] LABS: BASO % 0.4 % (0-2.0); EOS % 0.6 % (0-4.5); HEMATOCRIT 35.7 % (35.4-49); LYMPH % 14.6 % (8-40); MCH 30.2 pg (25.7-33.7); MCHC 33.6 g/dl (32.0-35.9); MEAN CELL VOLUME 89.9 fl (80-96); MEAN PLT VOLUME 7.9 fl (7.5-11.1); MONO % 9.8 % (3.8-10.2); NEUT % 74.6 % (42.8-82.8); PLATELET COUNT 354 K/MM3 (134-434); RBC 3.98 M/mm3 (4.00-5.60); RDW 12.9 % (11.9-15.9); WHITE BLOOD COUNT 12.4 K/mm3 (4.0-10.0)
[2017-10-17 08:43] LABS: ANION GAP 7 MMOL/L (8-16); BLOOD UREA NITROGEN 7 mg/dL (7-18); CALCIUM 8.3 mg/dL (8.5-10.1); CHLORIDE 96 mmol/L (98-107); CO2 35 mmol/L (21-32); CREATININE 0.5 mg/dL (0.7-1.3); GLUCOSE,RANDOM 232 mg/dL (74-106); MAGNESIUM 1.3 mg/dL (1.8-2.4); POTASSIUM 3.5 mmol/L (3.5-5.1); SODIUM 138 mmol/L (136-145)
[2017-10-17] MEDS: LISINOPRIL 20 MG TABLET (FP) PO SCH (09:47)
[2017-10-17] MEDS: amLODIPine BESYLATE 5 MG TABLET (FP) PO SCH (09:47)
[2017-10-17] MEDS: HYDROCHLOROTHIAZIDE 12.5 MG CAPSULE (FP) PO SCH (09:47)
[2017-10-17] MEDS ORDERED: INSULIN (NOVOLOG) ASPART 100 UNITS/ML 10ML VIAL ONE ×2 (11:25→21:25)
[2017-10-17] MEDS ORDERED: MAGNESIUM OXIDE 400 MG TABLET (FP) PO ONE (13:05)
--- NOTE | 2017-10-17 13:11 | PN ---
Progress Note (short form) - Note Progress Note: Subjective: The patient was seen and examined at the bedside, he has no complaints at this time Current Medications Generic Name Dose Route Start Last Admin Trade Name Freq PRN Reason Stop Dose Admin Acetaminophen 650 mg 10/13/17 13:35 10/15/17 18:07 Tylenol - PO 650 mg Q6H PRN Administration FEVER Amlodipine Besylate 5 mg 10/13/17 10:00 10/17/17 09:47 Norvasc - PO 5 mg DAILY PETER Administration Benzocaine/Menthol 1 each 10/15/17 16:29 10/16/17 08:00 Cepacol Lozenge - MM 1 each DAILY PRN Administration SORE THROAT Diphenhydramine HCl 12.5 mg 10/12/17 15:38 Benadryl Injection - IVPUSH ONCE PRN FOR ITCHING Hydrochlorothiazide 12.5 mg 10/13/17 10:00 10/17/17 09:47 Hctz - PO 12.5 mg DAILY PETER Administration Piperacillin Sod/Tazobactam 100 mls @ 200 mls/hr 10/12/17 18:00 10/17/17 09: 47 Sod 4.5 gm/ Dextrose IVPB 200 mls/hr Q8H-IV [facility]ER Administration Protocol Lactated Ringer's 1,000 ml in 1,000 mls @ 125 mls/hr 10/14/17 10:15 10/17/17 05:25 Lactated Ringers Solution IV 125 mls/hr ASDIR [facility] Administration Insulin Aspart 1 vial 10/12/17 16:30 10/17/17 11:28 Novolog Vial Sliding Scale - SQ 6 units ACHS [facility]ER Administration Protocol Lisinopril 20 mg 10/13/17 10:00 10/17/17 09:47 Prinivil PO 20 mg DAILY [facility] Administration Nystatin 500,000 units 10/16/17 08:15 10/17/17 11:28 Nystatin Oral Suspension - PO 500,000 units Q6HPO [facility] Administration Ondansetron HCl 4 mg 10/12/17 15:38 10/15/17 14:28 Zofran Injection IVPUSH 4 mg Q4H PRN Administration NAUSEA AND/OR VOMITING Oxycodone HCl 5 mg 10/16/17 19:15 Roxicodone - PO Q6H PRN PAIN LEVEL 7 - 10 Objective: Vital Signs Period Temp Pulse Resp BP Sys/Cooley Pulse Ox Last 24 Hr 98.5 F-99.5 F 78-92 16-20 129-145/63-75 94-94 Physical Exam: General: NAD Lungs: CTA bilaterally Heart: RRR, S1S2 Abd: Dressings c/d/i. JPx2 with bloody drainage. Normoactive bowel sounds CBCD WBC 12.4 K/mm3 (4.0-10.0) H 10/17/17 07:00 RBC 3.98 M/mm3 (4.00-5.60) L 10/17/17 07:00 Hgb 12.0 GM/dL (11.7-16.9) 10/17/17 07:00 Hct 35.7 % (35.4-49) 10/17/17 07:00 MCV 89.9 fl (80-96) 10/17/17 07:00 MCHC 33.6 g/dl (32.0-35.9) 10/17/17 07:00 RDW 12.9 % (11.9-15.9) 10/17/17 07:00 Plt Count 354 K/MM3 (134-434) D 10/17/17 07:00 MPV 7.9 fl (7.5-11.1) 10/17/17 07:00 CMP Sodium 138 mmol/L (136-145) 10/17/17 07:00 Potassium 3.5 mmol/L (3.5-5.1) 10/17/17 07:00 Chloride 96 mmol/L (98-107) L 10/17/17 07:00 Carbon Dioxide 35 mmol/L (21-32) H 10/17/17 07:00 Anion Gap 7 MMOL/L (8-16) L 10/17/17 07:00 BUN 7 mg/dL (7-18) 10/17/17 07:00 Creatinine 0.5 mg/dL (0.7-1.3) L 10/17/17 07:00 Creat Clearance w eGFR > 60 (>60) 10/17/17 07:00 Random Glucose 232 mg/dL (74-106) H 10/17/17 07:00 Calcium 8.3 mg/dL (8.5-10.1) L 08/25/18 07:00 Total Bilirubin 0.5 mg/dL (0.2-1.0) 10/16/17 07:30 AST 13 U/L (15-37) L D 10/16/17 07:30 ALT 17 U/L (12-78) D 10/16/17 07:30 Alkaline Phosphatase 85 U/L (45-117) D 10/16/17 07:30 Total Protein 5.2 g/dl (6.4-8.2) L 10/16/17 07:30 Albumin 1.8 g/dl (3.4-5.0) L 10/16/17 07:30 CARDIAC ENZYMES Creatine Kinase 113 IU/L (39-308) 10/10/17 00:30 Troponin I < 0.02 ng/ml (0.00-0.05) 10/12/17 16:00 Microbiology 10/10/17 12:35 Blood - Peripheral Venous Blood Culture - Final NO GROWTH AFTER 5 DAYS INCUBATION 10/10/17 12:33 Blood - Peripheral Venous Blood Culture - Final NO GROWTH AFTER 5 DAYS INCUBATION 10/10/17 07:15 Urine - Urine Clean Catch Urine Culture - Final NO GROWTH OBTAINED Assessment: This is a 71 year old with PMHx of HTN, NIDDM, who presented to the ED with abdominal pain and vomiting. Plan: 1) Sepsis 2/2 acute gangrenous cholecystitis - POD#5 open partial cholecystectomy, grossly gangrenous gallbladder with necrosis - MADELAINE drains in place - Pain management - Continue Zosyn - Appreciate surgery consult - Appreciate ID consult 2) HTN - Continue Norvasc, Hctz, Lisinopril 3) DM - BGM ACHS - ISS ACHS 4) F/E/N: - IV fluids - Full liquid diet - Hypomagnesemia: replete - Incentive spirometer, needs encouragement 5) Prophylaxis: - DVT prophylaxis per surgery - PT 6) Dispo: - Requires continued inpatient care CODE STATUS: FULL CODE Visit type - Emergency Visit Emergency Visit: Yes ED Registration Date: 10/10/17 Care time: The patient presented to the Emergency Department on the above date and was hospitalized for further evaluation of their emergent condition. - New Patient This patient is new to me today: No - Critical Care Critical Care patient: No
[2017-10-17] MEDS: oxyCODONE HCL 5 MG TABLET PO PRN (17:07)
[2017-10-18] MEDS ORDERED: DEXTROSE 5%-WATER 100 ML IVPB ONE ×3 (00:25→15:56)
[2017-10-18] MEDS ORDERED: PIPERACILLIN/TAZOBACTAM 4.5 GM VIAL IVPB ONE ×3 (00:25→15:56)
[2017-10-18] MEDS: oxyCODONE HCL 5 MG TABLET PO PRN ×3 (00:29→21:12)
[2017-10-18] MEDS: NYSTATIN 500,000 UNITS/5 ML SUSPENSION PO SCH ×4 (00:30→16:59)
[2017-10-18] MEDS: LACTATED RINGERS SOLUTION 1,000 ML/1,000 ML INFUS.BAG IV SCH ×3 (00:34→17:50)
[2017-10-18] MEDS: PIPERACILLIN/TAZOB 4.5 GM 4.5 GM in DEXTROSE 5%-WATER 100 ML IVPB SCH ×3 (02:40→17:00)
[2017-10-18] MEDS: INSULIN SLIDING SCALE (NOVOLOG) 1 VIAL SQ SCH ×4 (06:19→21:10)
[2017-10-18 07:38] LABS: BASO % 0.3 % (0-2.0); EOS % 1.1 % (0-4.5); HEMATOCRIT 35.2 % (35.4-49); HEMOGLOBIN 11.9 GM/dL (11.7-16.9); LYMPH % 18.2 % (8-40); MCH 30.1 pg (25.7-33.7); MCHC 33.8 g/dl (32.0-35.9); MEAN CELL VOLUME 89.1 fl (80-96); MEAN PLT VOLUME 7.7 fl (7.5-11.1); NEUT % 70.4 % (42.8-82.8); PLATELET COUNT 402 K/MM3 (134-434); RBC 3.96 M/mm3 (4.00-5.60); RDW 13.2 % (11.9-15.9); WHITE BLOOD COUNT 11.4 K/mm3 (4.0-10.0)
[2017-10-18 08:17] LABS: ANION GAP 5 MMOL/L (8-16); BLOOD UREA NITROGEN 7 mg/dL (7-18); CALCIUM 8.3 mg/dL (8.5-10.1); CHLORIDE 98 mmol/L (98-107); CO2 34 mmol/L (21-32); CREATININE 0.6 mg/dL (0.7-1.3); GLUCOSE,RANDOM 223 mg/dL (74-106); MAGNESIUM 1.5 mg/dL (1.8-2.4); POTASSIUM 3.4 mmol/L (3.5-5.1); SGOT/AST 15 U/L (15-37); SGPT/ALT 16 U/L (12-78); SODIUM 137 mmol/L (136-145)
[2017-10-18 08:20] LABS: ALK PHOS 122 U/L (45-117); BILIRUBIN,TOTAL 0.4 mg/dL (0.2-1.0); TOT PROT 5.8 g/dl (6.4-8.2)
[2017-10-18] MEDS: HYDROCHLOROTHIAZIDE 12.5 MG CAPSULE (FP) PO SCH (09:02)
[2017-10-18] MEDS: amLODIPine BESYLATE 5 MG TABLET (FP) PO SCH (09:02)
[2017-10-18] MEDS: LISINOPRIL 20 MG TABLET (FP) PO SCH (09:02)
--- NOTE | 2017-10-18 11:29 | PN ---
Progress Note, Physician History of Present Illness: post op stable pain gi function starting to return - Current Medication List Current Medications: Active Medications Acetaminophen (Tylenol -) 650 mg PO Q6H PRN PRN Reason: FEVER Last Admin: 10/15/17 18:07 Dose: 650 mg Amlodipine Besylate (Norvasc -) 5 mg PO DAILY [facility] Last Admin: 10/18/17 09:02 Dose: 5 mg Benzocaine/Menthol (Cepacol Lozenge -) 1 each MM DAILY PRN PRN Reason: SORE THROAT Last Admin: 10/16/17 08:00 Dose: 1 each Diphenhydramine HCl (Benadryl Injection -) 12.5 mg IVPUSH ONCE PRN PRN Reason: FOR ITCHING Hydrochlorothiazide (Hctz -) 12.5 mg PO DAILY [facility] Last Admin: 10/18/17 09:02 Dose: 12.5 mg Piperacillin Sod/Tazobactam (Sod 4.5 gm/ Dextrose) 100 mls @ 200 mls/hr IVPB Q8H-IV [facility]; Protocol Last Admin: 10/18/17 09:02 Dose: 200 mls/hr Lactated Ringer's (Lactated Ringers Solution) 1,000 ml in 1,000 mls @ 125 mls/ hr IV ASDIR [facility] Last Admin: 10/18/17 09:05 Dose: 125 mls/hr Insulin Aspart (Novolog Vial Sliding Scale -) 1 vial SQ ACHS [facility]; Protocol Last Admin: 10/18/17 06:19 Dose: 4 units Lisinopril (Prinivil) 20 mg PO DAILY [facility] Last Admin: 10/18/17 09:02 Dose: 20 mg Nystatin (Nystatin Oral Suspension -) 500,000 units PO Q6HPO [facility] Last Admin: 10/18/17 06:19 Dose: 500,000 units Ondansetron HCl (Zofran Injection) 4 mg IVPUSH Q4H PRN PRN Reason: NAUSEA AND/OR VOMITING Last Admin: 10/15/17 14:28 Dose: 4 mg Oxycodone HCl (Roxicodone -) 5 mg PO Q6H PRN PRN Reason: PAIN LEVEL 7 - 10 Last Admin: 10/18/17 08:57 Dose: 5 mg - Objective Vital Signs: Vital Signs Temperature 98.8 F 10/18/17 08:00 Pulse Rate 83 10/18/17 08:00 Respiratory Rate 16 10/18/17 08:00 Blood Pressure 123/67 10/18/17 08:00 O2 Sat by Pulse Oximetry (%) 96 10/18/17 09:00 Constitutional: Yes: No Distress, Calm Cardiovascular: Yes: Regular Rate and Rhythm Respiratory: Yes: Regular, CTA Bilaterally Gastrointestinal: Yes: Normal Bowel Sounds, Soft Musculoskeletal: Yes: WNL Extremities: Yes: WNL Integumentary: Yes: WNL Wound/Incision: Yes: Clean/Dry, Dressing Dry and Intact Neurological: Yes: Alert, Oriented Psychiatric: Yes: Alert, Oriented Labs: CBC, BMP 10/18/17 07:00 10/18/17 07:00 INR, PTT INR 1.17 (0.83-1.09) H 10/16/17 07:30 Assessment/Plan Problem List - Problems (1) Acute gangrenous cholecystitis Code(s): K81.0 - ACUTE CHOLECYSTITIS (2) Acute cholecystitis Code(s): K81.0 - ACUTE CHOLECYSTITIS (3) Diabetes mellitus due to underlying condition Code(s): E08.9 - DIABETES DUE TO UNDERLYING CONDITION W/O COMPLICATIONS (4) Hyperglycemia Code(s): R73.9 - HYPERGLYCEMIA, UNSPECIFIED plan continue current mgmt continue abx hydration rest as per surgery
[2017-10-18] MEDS: ACETAMINOPHEN 325 MG TABLET (FP) PO PRN (11:36)
[2017-10-18] MEDS ORDERED: POTASSIUM CHLORIDE TABS 20 MEQ TABLET.ER (FP) PO ONE (11:54)
--- NOTE | 2017-10-18 11:56 | PN ---
Progress Note (short form) - Note Progress Note: Subjective: The patient was seen and examined at the bedside, he has no complaints at this time Current Medications Generic Name Dose Route Start Last Admin Trade Name Hemantq PRN Reason Stop Dose Admin Acetaminophen 650 mg 10/13/17 13:35 10/18/17 11:36 Tylenol - PO 650 mg Q6H PRN Administration FEVER Amlodipine Besylate 5 mg 10/13/17 10:00 10/18/17 09:02 Norvasc - PO 5 mg DAILY PETER Administration Benzocaine/Menthol 1 each 10/15/17 16:29 10/16/17 08:00 Cepacol Lozenge - MM 1 each DAILY PRN Administration SORE THROAT Diphenhydramine HCl 12.5 mg 10/12/17 15:38 Benadryl Injection - IVPUSH ONCE PRN FOR ITCHING Hydrochlorothiazide 12.5 mg 10/13/17 10:00 10/18/17 09:02 Hctz - PO 12.5 mg DAILY PETER Administration Piperacillin Sod/Tazobactam 100 mls @ 200 mls/hr 10/12/17 18:00 10/18/17 09: 02 Sod 4.5 gm/ Dextrose IVPB 200 mls/hr Q8H-IV [facility]ER Administration Protocol Lactated Ringer's 1,000 ml in 1,000 mls @ 125 mls/hr 10/14/17 10:15 10/18/17 09:05 Lactated Ringers Solution IV 125 mls/hr ASDIR PETER Administration Insulin Aspart 1 vial 10/12/17 16:30 10/18/17 11:35 Novolog Vial Sliding Scale - SQ 6 units ACHS PETER Administration Protocol Lisinopril 20 mg 10/13/17 10:00 10/18/17 09:02 Prinivil PO 20 mg DAILY PETER Administration Magnesium Oxide 800 mg 10/18/17 11:54 Mag-Ox - PO 10/18/17 11:55 ONCE ONE Nystatin 500,000 units 10/16/17 08:15 10/18/17 11:36 Nystatin Oral Suspension - PO 500,000 units Q6HPO PETER Administration Ondansetron HCl 4 mg 10/12/17 15:38 10/15/17 14:28 Zofran Injection IVPUSH 4 mg Q4H PRN Administration NAUSEA AND/OR VOMITING Oxycodone HCl 5 mg 10/16/17 19:15 10/18/17 08:57 Roxicodone - PO 5 mg Q6H PRN Administration PAIN LEVEL 7 - 10 Potassium Chloride 40 meq 10/18/17 11:54 K-Dur - PO 10/18/17 11:55 ONCE ONE Objective: Vital Signs Period Temp Pulse Resp BP Sys/Cooley Pulse Ox Last 24 Hr 98.6 F-99.7 F 83-92 16-24 113-135/62-71 96 Physical Exam: General: NAD HEENT: Right nare NGT to LWS Lungs: CTA bilaterally Heart: RRR, S1S2 Abd: Dressings c/d/i. JPx2 with bloody drainage. Normoactive bowel sounds CBCD WBC 11.4 K/mm3 (4.0-10.0) H 10/18/17 07:00 RBC 3.96 M/mm3 (4.00-5.60) L 10/18/17 07:00 Hgb 11.9 GM/dL (11.7-16.9) 10/18/17 07:00 Hct 35.2 % (35.4-49) L 10/18/17 07:00 MCV 89.1 fl (80-96) 10/18/17 07:00 MCHC 33.8 g/dl (32.0-35.9) 10/18/17 07:00 RDW 13.2 % (11.9-15.9) 10/18/17 07:00 Plt Count 402 K/MM3 (134-434) 10/18/17 07:00 MPV 7.7 fl (7.5-11.1) 10/18/17 07:00 CMP Sodium 137 mmol/L (136-145) 10/18/17 07:00 Potassium 3.4 mmol/L (3.5-5.1) L 10/18/17 07:00 Chloride 98 mmol/L (98-107) 10/18/17 07:00 Carbon Dioxide 34 mmol/L (21-32) H 10/18/17 07:00 Anion Gap 5 MMOL/L (8-16) L 10/18/17 07:00 BUN 7 mg/dL (7-18) 10/18/17 07:00 Creatinine 0.6 mg/dL (0.7-1.3) L 10/18/17 07:00 Creat Clearance w eGFR > 60 (>60) 10/18/17 07:00 Random Glucose 223 mg/dL (74-106) H 10/18/17 07:00 Calcium 8.3 mg/dL (8.5-10.1) L 10/18/17 07:00 Total Bilirubin 0.4 mg/dL (0.2-1.0) 10/18/17 07:00 AST 15 U/L (15-37) 10/18/17 07:00 ALT 16 U/L (12-78) 10/18/17 07:00 Alkaline Phosphatase 122 U/L (45-117) H D 10/18/17 07:00 Total Protein 5.8 g/dl (6.4-8.2) L 10/18/17 07:00 Albumin 2.0 g/dl (3.4-5.0) L 10/18/17 07:00 CARDIAC ENZYMES Creatine Kinase 113 IU/L (39-308) 10/10/17 00:30 Troponin I < 0.02 ng/ml (0.00-0.05) 10/12/17 16:00 Microbiology 10/10/17 12:35 Blood - Peripheral Venous Blood Culture - Final NO GROWTH AFTER 5 DAYS INCUBATION 10/10/17 12:33 Blood - Peripheral Venous Blood Culture - Final NO GROWTH AFTER 5 DAYS INCUBATION 10/10/17 07:15 Urine - Urine Clean Catch Urine Culture - Final NO GROWTH OBTAINED Assessment: This is a 71 year old with PMHx of HTN, NIDDM, who presented to the ED with abdominal pain and vomiting. Plan: 1) Sepsis 2/2 acute gangrenous cholecystitis - POD#6 open partial cholecystectomy, grossly gangrenous gallbladder with necrosis - MADELAINE drains in place - Pain management - Continue Zosyn - Appreciate surgery consult - Appreciate ID consult 2) HTN - Continue Norvasc, Hctz, Lisinopril 3) DM - BGM ACHS - ISS ACHS 4) F/E/N: - IV fluids - Advance diet to diabetic for lunch today - Hypomagnesemia: replete - Hypokalemia: replete - Incentive spirometer, needs encouragement 5) Prophylaxis: - DVT prophylaxis per surgery - PT 6) Dispo: - Requires continued inpatient care CODE STATUS: FULL CODE Visit type - Emergency Visit Emergency Visit: Yes ED Registration Date: 10/10/17 Care time: The patient presented to the Emergency Department on the above date and was hospitalized for further evaluation of their emergent condition. - New Patient This patient is new to me today: No - Critical Care Critical Care patient: No
[2017-10-18] MEDS ORDERED: MAGNESIUM OXIDE 400 MG TABLET (FP) PO ONE ×2 (12:30→12:45)
[2017-10-18] MEDS: HEPARIN NA (PORCINE) 5,000 UNITS/ML 1ML VIAL SQ SCH ×2 (14:21→21:09)
--- NOTE | 2017-10-18 21:58 | PN ---
Progress Note, Physician Chief Complaint: abdominal pain History of Present Illness: 71yo male PMH DM presents with left lower quadrant abdominal pain 1 day. Patient has a history significant for hypertension, hyperlipidemia and type 2 diabetes. He feel better, remains hemodynamically stable. - Current Medication List Current Medications: Active Medications Acetaminophen (Tylenol -) 650 mg PO Q6H PRN PRN Reason: FEVER Last Admin: 10/18/17 11:36 Dose: 650 mg Amlodipine Besylate (Norvasc -) 5 mg PO DAILY [facility] Last Admin: 10/18/17 09:02 Dose: 5 mg Benzocaine/Menthol (Cepacol Lozenge -) 1 each MM DAILY PRN PRN Reason: SORE THROAT Last Admin: 10/16/17 08:00 Dose: 1 each Diphenhydramine HCl (Benadryl Injection -) 12.5 mg IVPUSH ONCE PRN PRN Reason: FOR ITCHING Heparin Sodium (Porcine) (Heparin -) 5,000 unit SQ TID [facility] Last Admin: 10/18/17 21:09 Dose: 5,000 unit Hydrochlorothiazide (Hctz -) 12.5 mg PO DAILY [facility] Last Admin: 10/18/17 09:02 Dose: 12.5 mg Piperacillin Sod/Tazobactam (Sod 4.5 gm/ Dextrose) 100 mls @ 200 mls/hr IVPB Q8H-IV [facility]; Protocol Last Admin: 10/18/17 17:00 Dose: 200 mls/hr Lactated Ringer's (Lactated Ringers Solution) 1,000 ml in 1,000 mls @ 125 mls/ hr IV ASDIR [facility] Last Admin: 10/18/17 17:50 Dose: 125 mls/hr Insulin Aspart (Novolog Vial Sliding Scale -) 1 vial SQ ACHS [facility]; Protocol Last Admin: 10/18/17 21:10 Dose: 4 units Lisinopril (Prinivil) 20 mg PO DAILY [facility] Last Admin: 10/18/17 09:02 Dose: 20 mg Nystatin (Nystatin Oral Suspension -) 500,000 units PO Q6HPO [facility] Last Admin: 10/18/17 16:59 Dose: 500,000 units Ondansetron HCl (Zofran Injection) 4 mg IVPUSH Q4H PRN PRN Reason: NAUSEA AND/OR VOMITING Last Admin: 10/15/17 14:28 Dose: 4 mg Oxycodone HCl (Roxicodone -) 5 mg PO Q6H PRN PRN Reason: PAIN LEVEL 7 - 10 Last Admin: 10/18/17 21:12 Dose: 5 mg - Objective Vital Signs: Vital Signs Temperature 99.2 F 10/18/17 18:00 Pulse Rate 75 10/18/17 18:00 Respiratory Rate 18 10/18/17 18:00 Blood Pressure 128/66 10/18/17 18:00 O2 Sat by Pulse Oximetry (%) 96 10/18/17 09:00 Vital Signs Period Temp Pulse Resp BP Sys/Cooley Pulse Ox Last 24 Hr 98.4 F-99.2 F 74-87 16-24 108-133/61-71 Constitutional: Yes: Well Nourished, No Distress, Calm Eyes: Yes: Conjunctiva Clear, EOM Intact HENT: Yes: Atraumatic, Normocephalic Neck: Yes: Supple, Trachea Midline Cardiovascular: Yes: Regular Rate and Rhythm, S1, S2 Respiratory: Yes: Regular, CTA Bilaterally Gastrointestinal: Yes: Normal Bowel Sounds, Soft. No: Tenderness, Tenderness, Epigastrium, Tenderness, Rebound Genitourinary: No: CVA Tenderness - Left, CVA Tenderness - Right Extremities: No: Cool, Cyanosis Edema: No Peripheral Pulses WNL: Yes Peripheral Pulses: Left Radial: 2+, Right Radial: 2+, Left Doralis Pedis: 2+, Right Dorsalis Pedis: 2+ Integumentary: No: Jaundice, Pressure Ulcer, Rash, Skin Tear Wound/Incision: Yes: Clean/Dry, Bertram Intact, Unapproximated Neurological: Yes: Alert, Oriented Psychiatric: Yes: Alert, Oriented Labs: CBC, BMP 10/18/17 07:00 10/18/17 07:00 INR, PTT INR 1.17 (0.83-1.09) H 10/16/17 07:30 Problem List - Problems (1) Acute gangrenous cholecystitis Assessment/Plan: 71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 JP1 from the Cystic is scant 30ml per shift, will remove one drain if less than 30ml Diet as tolerated Continued IV antibiotics Daily wound care Strict I&O from Drains OOB and ambulate encourge IS Physical therapy evaluation D/C planning with [facility] for wound care and MADELAINE will follow Code(s): K81.0 - ACUTE CHOLECYSTITIS (2) Acute cholecystitis Code(s): K81.0 - ACUTE CHOLECYSTITIS (3) Diabetes mellitus due to underlying condition Code(s): E08.9 - DIABETES DUE TO UNDERLYING CONDITION W/O COMPLICATIONS (4) Hyperglycemia Code(s): R73.9 - HYPERGLYCEMIA, UNSPECIFIED
[2017-10-19] MEDS: NYSTATIN 500,000 UNITS/5 ML SUSPENSION PO SCH ×3 (00:30→12:10)
[2017-10-19] MEDS ORDERED: PIPERACILLIN/TAZOBACTAM 4.5 GM VIAL IVPB ONE ×2 (00:39→10:10)
[2017-10-19] MEDS ORDERED: DEXTROSE 5%-WATER 100 ML IVPB ONE ×2 (00:40→10:10)
[2017-10-19] MEDS: LACTATED RINGERS SOLUTION 1,000 ML/1,000 ML INFUS.BAG IV SCH (01:01)
[2017-10-19] MEDS: PIPERACILLIN/TAZOB 4.5 GM 4.5 GM in DEXTROSE 5%-WATER 100 ML IVPB SCH ×2 (01:02→10:14)
[2017-10-19] MEDS: HEPARIN NA (PORCINE) 5,000 UNITS/ML 1ML VIAL SQ SCH ×2 (05:35→14:27)
[2017-10-19] MEDS: INSULIN SLIDING SCALE (NOVOLOG) 1 VIAL SQ SCH ×2 (06:49→11:48)
[2017-10-19 07:53] LABS: BASO % 0.5 % (0-2.0); EOS % 1.5 % (0-4.5); HEMATOCRIT 35.3 % (35.4-49); HEMOGLOBIN 11.9 GM/dL (11.7-16.9); LYMPH % 22.5 % (8-40); MCH 30.2 pg (25.7-33.7); MCHC 33.7 g/dl (32.0-35.9); MEAN CELL VOLUME 89.4 fl (80-96); MEAN PLT VOLUME 7.8 fl (7.5-11.1); MONO % 8.3 % (3.8-10.2); NEUT % 67.2 % (42.8-82.8); PLATELET COUNT 428 K/MM3 (134-434); RBC 3.95 M/mm3 (4.00-5.60); WHITE BLOOD COUNT 12.4 K/mm3 (4.0-10.0)
[2017-10-19 08:13] LABS: CHLORIDE 100 mmol/L (98-107); POTASSIUM 4.1 mmol/L (3.5-5.1); SODIUM 139 mmol/L (136-145)
[2017-10-19 08:21] LABS: ALBUMIN 2.1 g/dl (3.4-5.0); ALK PHOS 119 U/L (45-117); ANION GAP 11 MMOL/L (8-16); BILIRUBIN,TOTAL 0.4 mg/dL (0.2-1.0); BLOOD UREA NITROGEN 8 mg/dL (7-18); CALCIUM 8.2 mg/dL (8.5-10.1); CO2 28 mmol/L (21-32); CREATININE 0.5 mg/dL (0.7-1.3); GLUCOSE,RANDOM 198 mg/dL (74-106); MAGNESIUM 1.8 mg/dL (1.8-2.4); SGOT/AST 14 U/L (15-37); SGPT/ALT 14 U/L (12-78); TOT PROT 5.9 g/dl (6.4-8.2)
--- NOTE | 2017-10-19 10:00 | PN ---
Progress Note, Physician Chief Complaint: abdominal pain History of Present Illness: 71yo male PMH DM presents with left lower quadrant abdominal pain 1 day. Patient has a history significant for hypertension, hyperlipidemia and type 2 diabetes. He feel better, remains hemodynamically stable. - Current Medication List Current Medications: Active Medications Acetaminophen (Tylenol -) 650 mg PO Q6H PRN PRN Reason: FEVER Last Admin: 10/18/17 11:36 Dose: 650 mg Amlodipine Besylate (Norvasc -) 5 mg PO DAILY [facility] Last Admin: 10/18/17 09:02 Dose: 5 mg Benzocaine/Menthol (Cepacol Lozenge -) 1 each MM DAILY PRN PRN Reason: SORE THROAT Last Admin: 10/16/17 08:00 Dose: 1 each Diphenhydramine HCl (Benadryl Injection -) 12.5 mg IVPUSH ONCE PRN PRN Reason: FOR ITCHING Heparin Sodium (Porcine) (Heparin -) 5,000 unit SQ TID [facility] Last Admin: 10/19/17 05:35 Dose: 5,000 unit Hydrochlorothiazide (Hctz -) 12.5 mg PO DAILY [facility] Last Admin: 10/18/17 09:02 Dose: 12.5 mg Piperacillin Sod/Tazobactam (Sod 4.5 gm/ Dextrose) 100 mls @ 200 mls/hr IVPB Q8H-IV [facility]; Protocol Last Admin: 10/19/17 01:02 Dose: 200 mls/hr Lactated Ringer's (Lactated Ringers Solution) 1,000 ml in 1,000 mls @ 125 mls/ hr IV ASDIR [facility] Last Admin: 10/19/17 01:01 Dose: 125 mls/hr Insulin Aspart (Novolog Vial Sliding Scale -) 1 vial SQ ACHS [facility]; Protocol Last Admin: 10/19/17 06:49 Dose: 2 units Lisinopril (Prinivil) 20 mg PO DAILY [facility] Last Admin: 10/18/17 09:02 Dose: 20 mg Nystatin (Nystatin Oral Suspension -) 500,000 units PO Q6HPO [facility] Last Admin: 10/19/17 05:35 Dose: 500,000 units Ondansetron HCl (Zofran Injection) 4 mg IVPUSH Q4H PRN PRN Reason: NAUSEA AND/OR VOMITING Last Admin: 10/15/17 14:28 Dose: 4 mg Oxycodone HCl (Roxicodone -) 5 mg PO Q6H PRN PRN Reason: PAIN LEVEL 7 - 10 Last Admin: 10/18/17 21:12 Dose: 5 mg - Objective Vital Signs: Vital Signs Temperature 98.4 F 10/19/17 05:00 Pulse Rate 87 10/19/17 05:00 Respiratory Rate 24 10/19/17 05:00 Blood Pressure 133/71 10/19/17 05:00 O2 Sat by Pulse Oximetry (%) 96 10/18/17 09:00 Vital Signs Period Temp Pulse Resp BP Sys/Cooley Pulse Ox Last 24 Hr 98.4 F-99.2 F 74-87 16-24 108-133/61-71 Constitutional: Yes: Well Nourished, No Distress, Calm Eyes: Yes: Conjunctiva Clear, EOM Intact HENT: Yes: Atraumatic, Normocephalic Neck: Yes: Supple, Trachea Midline Cardiovascular: Yes: Regular Rate and Rhythm, S1, S2 Respiratory: Yes: Regular, CTA Bilaterally Gastrointestinal: Yes: Normal Bowel Sounds, Soft. No: Tenderness, Tenderness, Epigastrium, Tenderness, Rebound ...Rectal Exam: Yes: Deferred Genitourinary: No: CVA Tenderness - Left, CVA Tenderness - Right Extremities: No: Cool, Cyanosis Edema: No Peripheral Pulses WNL: Yes Peripheral Pulses: Left Radial: 2+, Right Radial: 2+, Left Doralis Pedis: 2+, Right Dorsalis Pedis: 2+ Integumentary: No: Jaundice, Rash, Skin Tear Neurological: Yes: Alert, Oriented Psychiatric: Yes: Alert, Oriented Labs: CBC, BMP 10/19/17 07:15 10/19/17 07:15 INR, PTT INR 1.17 (0.83-1.09) H 10/16/17 07:30 Problem List - Problems (1) Acute gangrenous cholecystitis Assessment/Plan: 71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 JP1 from the Cystic is scant 30ml per shift, will remove one drain if less than 30ml antibiotics per ID Daily wound care Strict I&O from Drains OOB and ambulate encourge IS Physical therapy evaluation D/C planning with [facility] for wound care and MADELAINE will follow Code(s): K81.0 - ACUTE CHOLECYSTITIS (2) Acute cholecystitis Code(s): K81.0 - ACUTE CHOLECYSTITIS (3) Diabetes mellitus due to underlying condition Code(s): E08.9 - DIABETES DUE TO UNDERLYING CONDITION W/O COMPLICATIONS (4) Hyperglycemia Code(s): R73.9 - HYPERGLYCEMIA, UNSPECIFIED
[2017-10-19] MEDS: amLODIPine BESYLATE 5 MG TABLET (FP) PO SCH (10:14)
[2017-10-19] MEDS: LISINOPRIL 20 MG TABLET (FP) PO SCH (10:14)
[2017-10-19] MEDS: HYDROCHLOROTHIAZIDE 12.5 MG CAPSULE (FP) PO SCH (10:14)
--- NOTE | 2017-10-19 10:57 | PN ---
Progress Note (short form) - Note Progress Note: Subjective: The patient was seen and examined at the bedside, he has no complaints at this time Current Medications Generic Name Dose Route Start Last Admin Trade Name Hemantq PRN Reason Stop Dose Admin Acetaminophen 650 mg 10/13/17 13:35 10/18/17 11:36 Tylenol - PO 650 mg Q6H PRN Administration FEVER Amlodipine Besylate 5 mg 10/13/17 10:00 10/18/17 09:02 Norvasc - PO 5 mg DAILY PETER Administration Benzocaine/Menthol 1 each 10/15/17 16:29 10/16/17 08:00 Cepacol Lozenge - MM 1 each DAILY PRN Administration SORE THROAT Diphenhydramine HCl 12.5 mg 10/12/17 15:38 Benadryl Injection - IVPUSH ONCE PRN FOR ITCHING Hydrochlorothiazide 12.5 mg 10/13/17 10:00 10/18/17 09:02 Hctz - PO 12.5 mg DAILY PETER Administration Piperacillin Sod/Tazobactam 100 mls @ 200 mls/hr 10/12/17 18:00 10/18/17 09: 02 Sod 4.5 gm/ Dextrose IVPB 200 mls/hr Q8H-IV PETER Administration Protocol Lactated Ringer's 1,000 ml in 1,000 mls @ 125 mls/hr 10/14/17 10:15 10/18/17 09:05 Lactated Ringers Solution IV 125 mls/hr ASDIR PETER Administration Insulin Aspart 1 vial 10/12/17 16:30 10/18/17 11:35 Novolog Vial Sliding Scale - SQ 6 units ACHS PETER Administration Protocol Lisinopril 20 mg 10/13/17 10:00 10/18/17 09:02 Prinivil PO 20 mg DAILY PETER Administration Magnesium Oxide 800 mg 10/18/17 11:54 Mag-Ox - PO 10/18/17 11:55 ONCE ONE Nystatin 500,000 units 10/16/17 08:15 10/18/17 11:36 Nystatin Oral Suspension - PO 500,000 units Q6HPO PETER Administration Ondansetron HCl 4 mg 10/12/17 15:38 10/15/17 14:28 Zofran Injection IVPUSH 4 mg Q4H PRN Administration NAUSEA AND/OR VOMITING Oxycodone HCl 5 mg 10/16/17 19:15 10/18/17 08:57 Roxicodone - PO 5 mg Q6H PRN Administration PAIN LEVEL 7 - 10 Potassium Chloride 40 meq 10/18/17 11:54 K-Dur - PO 10/18/17 11:55 ONCE ONE Objective: Vital Signs Period Temp Pulse Resp BP Sys/Cooley Pulse Ox Last 24 Hr 98.6 F-99.7 F 83-92 16-24 113-135/62-71 96 Physical Exam: General: NAD Lungs: CTA bilaterally Heart: RRR, S1S2 Abd: Dressings c/d/i. JPx2 with bilious drainage. Normoactive bowel sounds CBCD WBC 12.4 K/mm3 (4.0-10.0) H 10/19/17 07:15 RBC 3.95 M/mm3 (4.00-5.60) L 10/19/17 07:15 Hgb 11.9 GM/dL (11.7-16.9) 10/19/17 07:15 Hct 35.3 % (35.4-49) L 10/19/17 07:15 MCV 89.4 fl (80-96) 10/19/17 07:15 MCHC 33.7 g/dl (32.0-35.9) 10/19/17 07:15 RDW 13.0 % (11.9-15.9) 10/19/17 07:15 Plt Count 428 K/MM3 (134-434) 10/19/17 07:15 MPV 7.8 fl (7.5-11.1) 10/19/17 07:15 CMP Sodium 139 mmol/L (136-145) 10/19/17 07:15 Potassium 4.1 mmol/L (3.5-5.1) D 10/19/17 07:15 Chloride 100 mmol/L (98-107) 10/19/17 07:15 Carbon Dioxide 28 mmol/L (21-32) 10/19/17 07:15 Anion Gap 11 MMOL/L (8-16) 10/19/17 07:15 BUN 8 mg/dL (7-18) 10/19/17 07:15 Creatinine 0.5 mg/dL (0.7-1.3) L 10/19/17 07:15 Creat Clearance w eGFR > 60 (>60) 10/19/17 07:15 Random Glucose 198 mg/dL (74-106) H 10/19/17 07:15 Calcium 8.2 mg/dL (8.5-10.1) L 10/19/17 07:15 Total Bilirubin 0.4 mg/dL (0.2-1.0) 10/19/17 07:15 AST 14 U/L (15-37) L 10/19/17 07:15 ALT 14 U/L (12-78) 10/19/17 07:15 Alkaline Phosphatase 119 U/L (45-117) H 10/19/17 07:15 Total Protein 5.9 g/dl (6.4-8.2) L 10/19/17 07:15 Albumin 2.1 g/dl (3.4-5.0) L 10/19/17 07:15 CARDIAC ENZYMES Creatine Kinase 113 IU/L (39-308) 10/10/17 00:30 Troponin I < 0.02 ng/ml (0.00-0.05) 10/12/17 16:00 Microbiology 10/10/17 12:35 Blood - Peripheral Venous Blood Culture - Final NO GROWTH AFTER 5 DAYS INCUBATION 10/10/17 12:33 Blood - Peripheral Venous Blood Culture - Final NO GROWTH AFTER 5 DAYS INCUBATION 10/10/17 07:15 Urine - Urine Clean Catch Urine Culture - Final NO GROWTH OBTAINED Assessment: This is a 71 year old with PMHx of HTN, NIDDM, who presented to the ED with abdominal pain and vomiting. Plan: 1) Sepsis 2/2 acute gangrenous cholecystitis - POD#7 open partial cholecystectomy, grossly gangrenous gallbladder with necrosis - MADELAINE drains in place, will be discharged with drains - Pain management - Continue Zosyn, awaiting recommendation for changing to po abx - Appreciate surgery consult - Appreciate ID consult 2) HTN - Continue Norvasc, Hctz, Lisinopril 3) DM - BGM ACHS - ISS ACHS 4) F/E/N: - IV fluids - Advance diet to diabetic for lunch today - Hypomagnesemia: resolved - Hypokalemia: resolved - Incentive spirometer, needs encouragement 5) Prophylaxis: - Heparin 5,000u sq tid - PT 6) Dispo: - Requires continued inpatient care - Awaiting recommendations for antibiotics upon discharge CODE STATUS: FULL CODE Visit type - Emergency Visit Emergency Visit: Yes ED Registration Date: 10/10/17 Care time: The patient presented to the Emergency Department on the above date and was hospitalized for further evaluation of their emergent condition. - New Patient This patient is new to me today: No - Critical Care Critical Care patient: No
--- NOTE | 2017-10-19 13:13 | PN ---
Progress Note, Physician History of Present Illness: gi function starting pain no issues - Current Medication List Current Medications: Active Medications Acetaminophen (Tylenol -) 650 mg PO Q6H PRN PRN Reason: FEVER Last Admin: 10/18/17 11:36 Dose: 650 mg Amlodipine Besylate (Norvasc -) 5 mg PO DAILY [facility] Last Admin: 10/19/17 10:14 Dose: 5 mg Benzocaine/Menthol (Cepacol Lozenge -) 1 each MM DAILY PRN PRN Reason: SORE THROAT Last Admin: 10/16/17 08:00 Dose: 1 each Diphenhydramine HCl (Benadryl Injection -) 12.5 mg IVPUSH ONCE PRN PRN Reason: FOR ITCHING Heparin Sodium (Porcine) (Heparin -) 5,000 unit SQ TID [facility] Last Admin: 10/19/17 05:35 Dose: 5,000 unit Hydrochlorothiazide (Hctz -) 12.5 mg PO DAILY [facility] Last Admin: 10/19/17 10:14 Dose: 12.5 mg Piperacillin Sod/Tazobactam (Sod 4.5 gm/ Dextrose) 100 mls @ 200 mls/hr IVPB Q8H-IV PETER; Protocol Last Admin: 10/19/17 10:14 Dose: 200 mls/hr Lactated Ringer's (Lactated Ringers Solution) 1,000 ml in 1,000 mls @ 125 mls/ hr IV ASDIR [facility] Last Admin: 10/19/17 01:01 Dose: 125 mls/hr Insulin Aspart (Novolog Vial Sliding Scale -) 1 vial SQ ACHS [facility]; Protocol Last Admin: 10/19/17 11:48 Dose: 4 units Lisinopril (Prinivil) 20 mg PO DAILY [facility] Last Admin: 10/19/17 10:14 Dose: 20 mg Nystatin (Nystatin Oral Suspension -) 500,000 units PO Q6HPO [facility] Last Admin: 10/19/17 12:10 Dose: 500,000 units Ondansetron HCl (Zofran Injection) 4 mg IVPUSH Q4H PRN PRN Reason: NAUSEA AND/OR VOMITING Last Admin: 10/15/17 14:28 Dose: 4 mg Oxycodone HCl (Roxicodone -) 5 mg PO Q6H PRN PRN Reason: PAIN LEVEL 7 - 10 Last Admin: 10/18/17 21:12 Dose: 5 mg - Objective Vital Signs: Vital Signs Temperature 98.7 F 10/19/17 09:00 Pulse Rate 75 10/19/17 09:00 Respiratory Rate 20 10/19/17 09:00 Blood Pressure 128/79 10/19/17 09:00 O2 Sat by Pulse Oximetry (%) 96 10/18/17 09:00 Constitutional: Yes: No Distress, Calm Cardiovascular: Yes: Regular Rate and Rhythm Respiratory: Yes: Regular, CTA Bilaterally Gastrointestinal: Yes: Normal Bowel Sounds, Soft Musculoskeletal: Yes: WNL Extremities: Yes: WNL Wound/Incision: Yes: Clean/Dry, Dressing Dry and Intact Neurological: Yes: Alert, Oriented Psychiatric: Yes: Alert, Oriented Labs: CBC, BMP 10/19/17 07:15 10/19/17 07:15 INR, PTT INR 1.17 (0.83-1.09) H 10/16/17 07:30 Assessment/Plan Problem List - Problems (1) Acute gangrenous cholecystitis Code(s): K81.0 - ACUTE CHOLECYSTITIS (2) Acute cholecystitis Code(s): K81.0 - ACUTE CHOLECYSTITIS (3) Diabetes mellitus due to underlying condition Code(s): E08.9 - DIABETES DUE TO UNDERLYING CONDITION W/O COMPLICATIONS (4) Hyperglycemia Code(s): R73.9 - HYPERGLYCEMIA, UNSPECIFIED plan continue current mgmt continue abx hydration rest as per surgery
[2017-10-19 14:58] VITALS: BP 131/69; PULSE 76; TEMP 99.2
--- NOTE | 2017-10-19 15:22 | DS ---
Physical Examination Vital Signs: Vital Signs Temperature 99.2 F 10/19/17 14:57 Pulse Rate 76 10/19/17 14:57 Respiratory Rate 20 10/19/17 14:57 Blood Pressure 131/69 10/19/17 14:57 O2 Sat by Pulse Oximetry (%) 96 10/18/17 09:00 Findings/Remarks: Physical Exam: General: NAD Lungs: CTA bilaterally Heart: RRR, S1S2 Abd: Dressings c/d/i. JPx2 with bilious drainage. Non-tender. Normoactive bowel sounds Labs: CBC, BMP 10/19/17 07:15 10/19/17 07:15 Discharge Summary Reason For Visit: ABD PAIN Current Active Problems Acute cholecystitis (Acute) Acute gangrenous cholecystitis (Acute) Diabetes mellitus due to underlying condition (Acute) History of inguinal hernia repair (Acute) Hypertension (Acute) Hospital Course: This is a 71 year old with PMHx of HTN, NIDDM, who presented to the ED with abdominal pain and vomiting. Plan: 1) Sepsis 2/2 acute gangrenous cholecystitis - POD#7 open partial cholecystectomy, grossly gangrenous gallbladder with necrosis - MADELAINE drains in place, will be discharged with drains - Pain management - Was on Zosyn while in the hospital - Discussed with Dr. Choi, can be discharged on Augmentin for 7 days - Appreciate surgery consult - Appreciate ID consult 2) HTN - Continue Norvasc, Hctz, Lisinopril 3) DM - BGM ACHS - ISS ACHS Patient was discharged with VNS Condition: Improved - Instructions Diet, Activity, Other Instructions: Please return to the ED with new, persistent, or worsening symptoms. Please follow-up with providers as indicated. Postoperative instructions: You had an open cholecystectomy on 10/12/[address] Luís Webb of [facility]. Dressing: Daily dressing changes with 4x4 gauze sponges and tape. Drain JPs twice a day or if they are full. Make sure you measure and write down all drainage from each drain. Activity: Resume your usual activities gradually, but no heavy exertion or lifting more than 10-15 pounds for 4-6 weeks. Eat lightly at first, but advance to your usual diet as tolerated. Pain: For pain, you may use and alternate Tylenol (acetaminophen) 1-2 pills and/ or ibuprofen 200 mg (1-3 pills) every 6 hours each as needed; this means that you can take one OR the other at 3-hour intervals. If you are prescribed a Tylenol/narcotic combination for severe pain, use it instead of plain Tylenol as needed and switch back when your pain starts decreasing. Do not take more than 4000 mg of acetaminophen in a day. Take medications as prescribed or indicated on the labeling. Follow-up: Call Dr. Mak's office at [phone] to make your postop appointment (Thursday in approximately 2 weeks after surgery as advised). Clinic is held in the [facility] on the first floor of [facility]. Call the office if you have: * increasing pain not responsive to pain medication * fever of 101F or higher * vomiting * unusual or increasing bleeding or drainage from wounds * increasing redness or swelling at wound sites * inability to urinate Also, see your primary medical doctor within 1-2 weeks. Referrals: Micah Silvestre MD [Staff Physician] - 1 Week (Please follow-up with your primary care provider within 2-3 days for an outpatient chest x-ray to evaluate your left lung base. ) Luís Webb MD [Staff Physician] - Disposition: VNS/HOME HEALTH CARE - Home Medications Comprehensive Discharge Medication List: Ambulatory Orders metFORMIN HCL [Glucophage -] 1,000 mg PO BID 04/12/16 Amlodipine Besylate [Norvasc -] 5 mg PO DAILY 05/22/16 Glipizide [Glucotrol Xl] 2.5 mg PO BID 05/22/16 Lisinopril/Hydrochlorothiazide [Lisinopril-Hctz 20-12.5 mg Tab] 1 each PO DAILY 05/22/16 Capsaicin 0.025% [Capsaicin [Nf] -] 1 applic TP BID #1 tube 11/25/16 Acetaminophen [Tylenol .Regular Strength -] 650 mg PO Q6H PRN tablet 10/19/17 Amox-Tr/K Cl [Augmentin 875-125mg Tablet -] 1 tab PO BID@0800,1730 #14 tablet Nystatin Oral Suspension - [Nystatin Oral Susp 855230 Units/5 ML -] 500,000 units PO Q6HPO #20 cup 10/19/17 oxyCODONE HCL [Roxicodone -] 5 mg PO Q6H PRN #10 tablet MDD 20mg 10/19/17 This patient is new to me today: No Emergency Visit: Yes ED Registration Date: 10/10/17 Care time: The patient presented to the Emergency Department on the above date and was hospitalized for further evaluation of their emergent condition. Critical Care patient: No - Discharge Referral Referred to [facility] No
[2017-10-19] MEDS ORDERED: AMOX TR/POT CLAV 875MG/125MG TABLETS (FP) PO SCH (17:30)
[2017-10-19 22:18] VITALS: BMI 27.3
== END 2017-10-19 16:45 | disposition home health service (06) | DRG 710 ==
LOC: FER 23:28 → J6S 10-10 09:22
PROVIDERS: ADMIT Internal Medicine; ATTEND Registered Nurse
PROC: 0FB40ZX Excision of Gallbladder, Open Approach, Diagnostic (ICD-10-PCS; principal; 2017-10-12 14:15)
DX: A41.9 Sepsis, unspecified organism (principal); R09.02 Hypoxemia; E87.6 Hypokalemia; I10 Essential (primary) hypertension; E78.5 Hyperlipidemia, unspecified; K81.0 Acute cholecystitis; E11.65 Type 2 diabetes mellitus with hyperglycemia; E83.42 Hypomagnesemia; Z53.31 Laparoscopic surgical procedure converted to open procedure
CPT/HCPCS: 36415; 71045-TC-FY; 74018-TC-FY; 74177-TC; 74181-TC; 76705-TC; 78226-TC; 80048; 80053; 80076; 81003; 82150; 82248; 82378; 82550; 82962; 83605; 83690; 83735; 84484; 85025; 85610; 86140; 86301; 86850; 86900; 86901; 86922; 87040; 87086; 88304-TC; 93005; 93010; 94760; 97116-GP; 97161-GP; 99283-25; A9537; J0131; J1644; J7030